=== PATIENT | female | born 1965 | race Caucasian/White ===

== ENCOUNTER 2024-02-27 07:47 | Day surgery (SDC) | payer OTHER, SELFPAY ==
[2023-12-24 10:42] VITALS: BMI 29.0
[2024-02-12 11:05] VITALS: BMI 28.1
--- NOTE | 2024-02-26 11:42 | P.PNAN_ITS ---
Anes - Initial Pre Proc Eval Procedure: Operation Date: 02/27/24 09:45 Proposed Procedures p Screening Colonoscopy - Liam Silva MD Date/Time: 02/26/24 11:42 Surgeon: Liam Silva MD Pre Op Diagnosis: Neoplasm Screening Patient Data Age: 58 Gender: F Height: 1.63 m Weight: 74.5 kg Allergies Allergy/AdvReac Type Severity Reaction Status Date / Time No Known Allergies Allergy Verified 02/27/24 08:06 Home Medications Medication Instructions Recorded Confirmed Type aspirin 81 mg tablet 81 mg PO DAILY 02/12/24 02/27/24 History metformin 500 mg tablet 500 mg PO BID 02/12/24 02/27/24 History rosuvastatin 20 mg tablet 20 mg PO DAILY 02/12/24 02/27/24 History Patient hx anesthesia problems: none Family hx anesthesia problems: none Results Review: All pre-operative results and documents have been reviewed as part of the pre- operative evaluation. [facility] Past Medical History Medical History (Updated 02/26/24 @ 11:43 by Lucas Zamarripa DO) Diabetes type 2, controlled Hyperlipidemia Surgical History Surgical History Cataract extraction status of right eye (~2018) Social History Social History Smoking status: Never smoker Alcohol intake: current Alcohol use details: Social Substance use: never Substance use type: does not use Living arrangements: alone Spiritual care concerns: No Anes - Eval Final PreProcedure Day of Procedure 02/26/24 11:42 Patient weight: overweight Heart: regular rate and rhythm Lungs: clear to auscultation Airway: Mallampati scale class II Neurological: alert and oriented Last oral intake: >/= 8 hours ASA classification: III Emergent: no Anesthetic plan: proceed Anesthesia type and monitoring: general GIVS and standard monitoring Results Review: All pre-operative results and documents have been reviewed as part of the pre- operative evaluation. Informed Consent: The patient's anesthetic plan and its attendant risks and benefits were discussed with the patient/family/POA. Questions were solicited and answers provided to the satisfaction of the patient/family/POA.
[2024-02-27 08:07] VITALS: BP 126/73; PULSE 90; RESP 15; TEMP 36.6; O2SAT 99
[2024-02-27] MEDS: LACTATED RINGERS 1,000 ML 150 ML IV CONT (08:11)
[2024-02-27 08:21] LABS: Glucose Point of Care 146 mg/dl (65-105)
--- NOTE | 2024-02-27 09:37 | PM.HPGS ---
History of Present Illness History of Present Illness Consent: Risks, benefits, and alternatives have been discussed and questions answered. Patient agrees to proceed with procedure. Chief complaint: Neoplasm Screening Narrative: Dayna Etienne is a 58 year old female for screening colonoscopy. Patient's current weight appetite and bowel movements are normal. She denies abdominal pain. Patient has had no bleeding. Family history is noncontributory. Review of Systems Review of Systems: All systems reviewed & are unremarkable except as noted in HPI and below PMFSH Past Medical History Medical History (Updated 02/27/24 @ 09:39 by Liam Silva MD) Diabetes type 2, controlled Hyperlipidemia Surgical History Surgical History Cataract extraction status of right eye (~2019) Social History Social History Smoking status: Never smoker Alcohol intake: current Alcohol use details: Social Substance use: never Substance use type: does not use Living arrangements: alone Spiritual care concerns: No Meds Home Medications and Allergies Home Medications Medication Instructions Recorded Confirmed Type aspirin 81 mg tablet 81 mg PO DAILY 02/12/24 02/27/24 History metformin 500 mg tablet 500 mg PO BID 02/12/24 02/27/24 History rosuvastatin 20 mg tablet 20 mg PO DAILY 02/12/24 02/27/24 History Allergies Allergy/AdvReac Type Severity Reaction Status Date / Time No Known Allergies Allergy Verified 02/27/24 08:06 Vital Signs Vital Signs - 24 hr 02/27/24 08:07 Temperature 98 F Pulse Rate 90 Respiratory Rate 15 Blood Pressure 126/73 Pulse Oximetry 99 Oxygen Delivery Room Air Exam Narrative: Physical exam reveals patient to be alert. Vital signs stable. HEENT exam is unremarkable. Patient is anicteric. Lungs are clear to auscultation and to percussion is without murmur extra sounds. Abdomen bowel sounds are present soft nontender with no organomegaly. Digital external rectal exam normal. Assessment and Plan Assessment and plan (1) Screen for colon cancer: Code(s): Z12.11 - Encounter for screening for malignant neoplasm of colon Status: Acute Assessment and Plan: Patient presents for screening colonoscopy today. She appears to be at average risk for colon polyps. Further recommendations may be given after endoscopy.
[2024-02-27 10:16] VITALS: BP 102/69; PULSE 90; RESP 15; O2SAT 95
[2024-02-27 10:22] VITALS: BP 102/68; PULSE 82; RESP 15; O2SAT 97
[2024-02-27 10:32] VITALS: BP 106/69; PULSE 80; RESP 15; O2SAT 97
--- NOTE | 2024-02-27 11:12 | SUR.PHASEII ---
blood obtained as ordered per dr. turcios
--- NOTE | 2024-02-27 12:51 | WPDANESPN ---
Anes - Prog Note Post-Op Date/Time: 02/27/24 12:51 Cardiovascular status: normal Respiratory status: normal Airway patency: baseline Mental status: baseline Post-Op hydration status: normal Vital Signs: Last Vital Signs Temp 36.6 C 02/27/24 08:07 Pulse 80 02/27/24 10:32 Resp 15 02/27/24 10:32 BP 106/69 02/27/24 10:32 Pulse Ox 97 02/27/24 10:32 O2 Del Method Room Air 02/27/24 10:32 Pain Score (VAS): 0 I/O: Intake & Output 02/26/24 02/27/24 02/27/24 23:59 07:59 15:59 Intake Total 600 Balance 600 02/27/24 08:14 POC Capillary Glucose 146 H Post-procedural complaints: none Patient Feedback: Patient satisfied with anesthetic care. Other Findings: Patient vital signs back to baseline. Patient denies nausea and vomiting. Patient's pain under control. Patient OK for discharge.
== END 2024-02-27 11:12 | disposition home or self-care (01) ==
PROVIDERS: PCP Internal Medicine; Visit Provider Internal Medicine Gastroenterology
PROC: 0DJD8ZZ Inspection of Lower Intestinal Tract, Via Natural or Artificial Opening Endoscopic (ICD-10-PCS; CPT 45378; principal; 2024-02-27 09:45)
DX: Z12.11 Encounter for screening for malignant neoplasm of colon (principal); D37.4 Neoplasm of uncertain behavior of colon; K57.30 Diverticulosis of large intestine without perforation or abscess without bleeding
CPT/HCPCS: 45380; 45381

== ENCOUNTER 2024-02-27 10:37 | Outpatient (CLI) | payer OTHER, SELFPAY ==
[2024-02-27 19:48] LABS: Hematocrit 32.2 % (37.0-47.0); Hemoglobin 10.4 g/dL (12.0-15.0); Mean Corpuscular HGB Conc 32.3 g/dl (32-36); Mean Corpuscular Hemoglobin 31.3 pg (26-34); Mean Platelet Volume 11.2 fl (7.4-10.4); Platelet Count Result 252 k/mm3 (150-375); Red Blood Count 3.32 M/mm3 (4.2-5.4); Red Cell Distribution Width 13.1 % (11.5-14.5); White Blood Count 8.1 K/mm3 (4.5-10.0)
== END 2024-02-27 10:38 | disposition home or self-care (01) ==
LOC: ANHASCLAB 10:38
PROVIDERS: PCP Internal Medicine; Visit Provider Internal Medicine Gastroenterology
DX: K63.89 Other specified diseases of intestine (principal); C18.2 Malignant neoplasm of ascending colon
CPT/HCPCS: 36415; 80053; 82378; 85027; 88305; 88342

== ENCOUNTER 2024-03-04 08:20 | Outpatient (CLI) | payer OTHER, SELFPAY ==
[2024-03-04 09:23] LABS: Alanine Aminotransferase 15 U/L (6-35); Albumin Level 4.2 g/dL (3.5-5.1); Alkaline Phosphatase 89 U/L (38-126); Anion Gap 4 mmol/L (4-12); Aspartate Amino Transferase 25 U/L (14-36); Bilirubin,Total 0.8 mg/dL (0.2-1.3); Blood Urea Nitrogen 14 mg/dL (7-17); Calcium 9.2 mg/dL (8.4-10.2); Carbon Dioxide 31 mmol/L (22-30); Chloride 104 mmol/L (98-107); Estimated Glomerular Filt Rate > 60; Glucose 167 mg/dL (65-110); Potassium 4.1 mmol/L (3.4-5.0); Sodium 139 mmol/L (137-145)
[2024-03-04 09:55] LABS: Carcinoembryonic Antigen 1.7 ng/mL (0.0-3.0)
== END 2024-03-04 08:21 | disposition home or self-care (01) ==
LOC: ANHLAB 08:22
PROVIDERS: PCP Internal Medicine; Visit Provider Internal Medicine Gastroenterology
DX: K63.89 Other specified diseases of intestine (principal)
CPT/HCPCS: 36415; 80053; 82378

== ENCOUNTER 2024-03-17 13:30 | Emergency (ER) | payer OTHER, SELFPAY ==
[2024-03-17 13:51] VITALS: BP 136/63; PULSE 91; RESP 16; TEMP 37; O2SAT 98
--- NOTE | 2024-03-17 14:11 | ED.URI ---
HPI - URI/Sore Throat General Chief Complaint: Upper Respiratory Infection Stated Complaint: Chest Congestion Time Seen by Provider: 03/17/24 13:52 Source: patient Mode of arrival: ambulatory Limitations: no limitations History of Present Illness HPI Narrative: Dayna is a 58-year-old female patient presenting to the clinic today with complaints of chest congestion that just started this morning. She denies any shortness of breath or chest pain. States she has a nonproductive cough. Denies any fevers, chills, or body aches. Does have slight nasal congestion. No sore throat MD elicited complaint: cough, nasal congestion and other (Chest congestion) Related Data Home Medications ?Medication ?Instructions ?Recorded ?Confirmed ?Last Taken ?Type aspirin 81 mg tablet 81 mg PO DAILY 02/12/24 03/12/24 Unknown History metformin 500 mg tablet 500 mg PO BID 02/12/24 03/12/24 Unknown History rosuvastatin 20 mg tablet 20 mg PO DAILY 02/12/24 03/12/24 Unknown History Allergies Allergy/AdvReac Type Severity Reaction Status Date / Time No Known Allergies Allergy Verified 03/12/24 10:05 Review of Systems Review of Systems: Pertinent positives per HPI. Patient denies any fever, chills, rash, headache, visual changes, dizziness, shortness of breath, chest pain, palpitations, nausea, vomiting, diarrhea, constipation, abdominal pain, or any urinary issues. [facility] Past Medical History Medical History Screen for colon cancer Screen for colon cancer Cancer Diabetes type 2, controlled Hyperlipidemia Surgical History Surgical History History of tubal ligation Hx laparoscopic cholecystectomy 2007 Cataract extraction status of right eye (~2019) Family History Family History Mother Thyroid cancer Heart disease Sibling Thyroid cancer Thyroid disorder Grandparent Thyroid cancer Social History Social History Smoking status: Never smoker Alcohol intake: current Alcohol use details: Social Substance use: never Substance use type: does not use Current Housing: Decline to Answer Concerned About Future Housing: Decline to Answer Difficulty Paying Gas/Electric Bills: Decline to Answer Difficulty Paying for Meds: Decline to Answer Currently Unemployed: Decline to Answer Education: Decline to Answer Difficulty w/ Childcare or Family Care: Decline to Answer Living arrangements: alone Spiritual care concerns: No Comments At the time of my signature, I reviewed and agree with the nursing past medical, surgical, social, and family history. There is no relevant family history pertinent to the patient complaint. Exam Narrative: General: Well-developed, well nourished, in no apparent distress Head: Normocephalic, atraumatic Eyes: Pupils equally round and reactive to light bilaterally, EOM intact, sclera and conjunctive clear, no discharge, lids normal Ears: TMs intact and clear, ear canals clear, no drainage, grossly hearing normal. Nose: Nares patent, clear nasal discharge, no inflammation, no sinus tenderness. Mouth: Oral pharynx without lesions or masses, good dentition, MMM. Postnasal drip Neck: Supple, trachea midline, no enlargement of anterior or posterior cervical nodes, no thyroid masses or goiter palpable. Cardio: Regular rate and rhythm, s1 and s2 normal, no murmur appreciated. Resp: Clear to auscultation bilaterally, no rhonchi, rales, wheezing or rubs Course Course Emergency Course: Portions of this record may have been created with voice recognition software. Level of Care: Express Care Visit Vital Signs Vital signs: Vital Signs Temperature 37.0 C 03/17/24 13:51 Pulse Rate 91 03/17/24 13:51 Respiratory Rate 16 03/17/24 13:51 Blood Pressure 136/63 03/17/24 13:51 Pulse Oximetry 98 03/17/24 13:51 Oxygen Delivery Room Air 03/17/24 13:51 Temperature 37.0 C 03/17/24 13:51 Pulse Rate 91 03/17/24 13:51 Respiratory Rate 16 03/17/24 13:51 Blood Pressure 136/63 03/17/24 13:51 Pulse Oximetry 98 03/17/24 13:51 Oxygen Delivery Room Air 03/17/24 13:51 Vital signs reviewed MDM - URI/Sore Throat MDM Narrative Medical decision making narrative: At the time of visit patient is resting comfortably on the exam table. Patient appears to be nontoxic. Plan: Lung sounds are clear there is no sign of bacterial infection. X2 early to test for COVID or flu as patient has only had symptoms for a couple hours. I suspect patient has URI. Will send in prescription for albuterol inhaler. Supportive measures were discussed with the patient and they voiced understanding discharge instructions and agrees to treatment plan. Return precautions reviewed Differential Diagnosis Differential diagnosis: Likely upper respiratory infection, otitis media, sinusitis, viral infection, bronchitis, influenza, pharyngitis and other (COVID) Discharge Plan Discharge Clinical Impression: Upper respiratory infection Qualifiers: URI type: unspecified URI Qualified Code(s): J06.9 - Acute upper respiratory infection, unspecified Patient Disposition: Home, Self-Care Condition: Stable Instructions: Antibiotic Form, Cold Symptoms (ED) Additional Instructions: Take prescription medications only as prescribed-albuterol inhaler May take Coricidin HBP for cold and flu symptoms Increase fluids and stay well hydrated Tylenol/motrin for pain/fever Flonase and OTC antihistamines as directed Vicks vapor rub to open sinuses Sinus rinses for congestion Cepacol spray, cough drops, throat lozenges, warm tea with honey/lemon, gargle salt water to soothe throat BRAT diet for diarrhea Clear liquids x 24 hours then advance as tolerated for nausea/vomiting Go to the ED if you develop a worsening in your condition- high fever not controlled by Tylenol or Motrin, dehydration, weakness, lethargy, shortness of breath, or chest pain. Follow up with your PCP in 3-5 days if symptoms persist. Patient Language: British Prescriptions: New albuterol sulfate 90 mcg/actuation HFA aerosol inhaler 2 puff inhalation Q4-6H PRN (Reason: shortness of breath or wheezing) 30 Days Qty: 8.5 0RF No Action ciprofloxacin HCl 500 mg tablet 500 mg PO .COMPLEX Qty: 1 0RF Rx Instructions: 500 mg orally at 2:00pm the day before surgery; metronidazole 500 mg tablet 500 mg PO .COMPLEX Qty: 3 0RF Rx Instructions: 500 mg orally at 1:00pm, 2:00pm, and 11:00pm the day before surgery; Adult Low Dose Aspirin 81 mg Tablet 81 mg PO DAILY metformin 500 mg Tablet 500 mg PO BID rosuvastatin 20 mg Tablet 20 mg PO DAILY Follow-up/Referrals: PHYSICIAN,BRICK GRADER [Primary Care Provider] - Time of Disposition: 14:12 Quality NIHSS Nursing Documentation ED NIHSS nursing documentation: reviewed/agree
== END 2024-03-17 14:19 | disposition home or self-care (01) ==
PROVIDERS: Emergency Provider Nurse Practitioner Family
DX: J06.9 Acute upper respiratory infection, unspecified (principal); Z79.82 Long term (current) use of aspirin; E11.9 Type 2 diabetes mellitus without complications; E78.5 Hyperlipidemia, unspecified
CPT/HCPCS: 99213; G0463

== ENCOUNTER 2024-04-07 15:31 | Outpatient (CLI) | payer OTHER, SELFPAY ==
--- NOTE | ~2024-04-07 | CT_ITS ---
EXAMINATION: CT abdomen pelvis w con DATE: 04/07/2024 16:21 INDICATION: Malignant neoplasm of the ascending colon TECHNIQUE: Computed tomography (CT) of the abdomen and pelvis was performed with 100 mL Omnipaque-350 intravenous contrast. Automated exposure control and iterative reconstruction technique were employe d. The dose-length product was 461.97 mGy-cm. COMPARISON: None FINDINGS: Mild bibasilar atelectasis at the lingula and right middle and lower lobes. Heart size is normal. No pericardial or pleural effusion. Focal hepatic steatosis at the ligamentum teres. Cholecystectomy cli ps the gallbladder fossa. Spleen, pancreas and bilateral adrenal glands are normal. Bilateral subcent imeter low-attenuation renal cysts the largest on the right measuring 8 mm. There is gas and debris w ithin the duodenal diverticulum projecting into the head of the pancreas. There is moderate colonic d iverticulosis with a sigmoid predominance without adjacent inflammatory change to suggest diverticuli tis. There is mild wall thickening along approximately 2 cm long segment of ascending colon along the caudal tip of the liver which appears to represent most likely site of the reported biopsy-proven ad enocarcinoma. No bowel obstruction. Small fat-containing left inguinal hernia. Bladder, uterus and bi lateral adnexa are unremarkable. No free intraperitoneal gas or fluid. No pathologically enlarged abd ominal or pelvic lymphadenopathy. Mild lumbar and mild to moderate lower thoracic spondylosis. IMPRESSION: 1. 2 cm segment with mild wall thickening at the ascending colon likely representing the site of the reported biopsy-proven: Adenocarcinoma. No evident metastatic disease. 2. Moderate sigmoid diverticulosis. 3. Small fat-containing left inguinal hernia. Reviewed, dictated and finalized at location B. [employer] DEVELOPER IMPRESSION: 1. 2 cm segment with mild wall thickening at the ascending colon likely represe nting the site of the reported biopsy-proven: Adenocarcinoma. No evident metast atic disease. 2. Moderate sigmoid diverticulosis. 3. Small fat-containing left inguinal hernia.
[2024-04-07 16:11] LABS: Estimated Glomerular Filt Rate > 60
== END 2024-04-07 15:32 | disposition home or self-care (01) ==
PROVIDERS: PCP Internal Medicine; Visit Provider Surgery
DX: C18.2 Malignant neoplasm of ascending colon (principal)
CPT/HCPCS: 74177; Q9967

== ENCOUNTER 2024-04-08 11:17 | Outpatient (CLI) | payer OTHER, SELFPAY ==
--- NOTE | ~2024-04-08 | XR_ITS ---
EXAMINATION: XR chest 2V DATE: 04/08/2024 12:45 INDICATION: Malignant neoplasm of colon, unspecified. TECHNIQUE: Frontal and lateral views of the chest were obtained. COMPARISON: CT abdomen pelvis 04/07/2024 FINDINGS: There is no pneumonia, pleural effusion, or pneumothorax. The heart size is normal. There a re surgical clips from cholecystectomy. IMPRESSION: 1. No acute cardiopulmonary disease. Reviewed, dictated and finalized at location A. J2EE LEAD
--- NOTE | 2024-04-08 11:51 | ECG_ITS ---
Test Date: 2024-04-08 12:10:05 Measurements Intervals Rhodes Rate: 82 P: 24 MO: 126 QRS: 43 QRSD: 79 T: 34 QT: 368 QTc: 432 Interpretive Statements SINUS RHYTHM LOW QRS VOLTAGE IN PRECORDIAL LEADS [QRS DEFLECTION < 1.0 mV IN CHEST LEADS] No previous ECG available for comparison Electronically Signed On 04-08-2024 14:35:35 [employer]END[employer] HELPER by Ivet Herbert M.D.
[2024-04-08 12:55] LABS: Basophils Percent Auto 0.5 % (0.2-1.2); Eosinophils Absolute Auto 0.1 K/mm3 (0-0.3); Eosinophils Percent Auto 1.6 % (0-4.4); Hematocrit 34.6 % (37.0-47.0); Immature Granulocyte Absolute 0.03 K/mm3 (0.00-0.031); Immature Granulocyte Percent A 0.4 % (0-0.5); Lymphocytes Absolute Auto 2.34 K/mm3 (0.9-3.2); Lymphocytes Percent Auto 27.6 % (18.3-44.2); Mean Corpuscular HGB Conc 31.8 g/dl (32-36); Mean Corpuscular Hemoglobin 30.1 pg (26-34); Mean Corpuscular Volume 94.8 fl (80-100); Mean Platelet Volume 10.5 fl (7.4-10.4); Monocytes Absolute Auto 0.9 K/mm3 (0.1-0.6); Monocytes Percent Auto 10.6 % (2.6-8.5); Neutrophils Percent Auto 59.3 % (45.5-73.1); Platelet Count Result 315 k/mm3 (150-375); Red Blood Count 3.65 M/mm3 (4.2-5.4); Red Cell Distribution Width 13.9 % (11.5-14.5); White Blood Count 8.5 K/mm3 (4.5-10.0)
[2024-04-08 13:07] LABS: Alanine Aminotransferase 14 U/L (6-35); Albumin Level 4.5 g/dL (3.5-5.1); Alkaline Phosphatase 74 U/L (38-126); Anion Gap 11 mmol/L (4-12); Aspartate Amino Transferase 25 U/L (14-36); Bilirubin,Total 1.1 mg/dL (0.2-1.3); Blood Urea Nitrogen 12 mg/dL (7-17); Calcium 9.4 mg/dL (8.4-10.2); Carbon Dioxide 29 mmol/L (22-30); Chloride 100 mmol/L (98-107); Estimated Glomerular Filt Rate > 60; Glucose 140 mg/dL (65-110); Potassium 4.2 mmol/L (3.4-5.0); Sodium 140 mmol/L (137-145)
== END 2024-04-08 11:18 | disposition home or self-care (01) ==
PROVIDERS: PCP Internal Medicine; Visit Provider Surgery
DX: C18.9 Malignant neoplasm of colon, unspecified (principal); K63.89 Other specified diseases of intestine
CPT/HCPCS: 36415; 71046; 80053; 85025; 86850; 86900; 86901; 93005

== ENCOUNTER 2024-04-15 13:36 | Inpatient (IN) | payer OTHER, SELFPAY ==
--- NOTE | 2024-04-08 10:51 | PC.NURSE ---
Report to the Outpatient Waiting Room, entrance under the green pavilion located off [facility], at time _0830_ on date _[id number]_. Planned Procedure Time: _1030_.? Time changes happen often and if your time is changed the preop area will call you the afternoon before. - You and your visitor will be asked to self-screen and do not enter if you have any COVID symptoms. Please call surgeon if you need to reschedule. - A mask is optional within the hospital at this time. Patients may have clear liquids (water, carbonated beverages, clear teas, apple juice) until 3 hours prior to surgery with a maximum of 20 ounces. - No food from midnight until time of surgery and no smoking. This includes no chewing gum, candy or mints. Take only the following medications with a SIP of water on the morning of surgery: ___None____ DO NOT STOP ANY OF YOUR OTHER PRESCRIPTION MEDICATIONS PRIOR TO SURGERY EXCEPT THE FOLLOWING Medications to discontinue per physician ____None____ Date to take last dose Follow office instructions about bowel prep and ensure bundle. Please no make-up, nail kiswahili, hairspray, perfume, deodorant, or body powder the day of surgery.? No jewelry (including any body piercings) or valuables the day of surgery, leave them at home.? Please take a shower or bath the night before, or the morning of, surgery with an antibacterial soap.? Wear comfortable, loose fitting clothing.? - Jewelry must be removed prior to entering the operating room.? Rings and piercings that are not removed may be cut off. - The hospital will not accept responsibility for valuables.? - Please leave all valuables, including medications, at home the day of surgery. If you are going home after surgery, a licensed regional driver must drive you home.? - NO public transportation without another adult if you receive anesthesia. - We recommend that an adult stay with you for 24 hours following discharge. - We also recommend that you do not drive, make important decision, drink alcoholic beverages, or take any drugs that were not prescribed by your health care provider for at least 24 hours after your discharge time. Follow any additional instructions given to you from your surgeon. Telephone instructions given to __Sherry__and asked if any additional questions and then verbalized understanding. Patient advised to call surgeon office or pre surgery nurse liaison [phone] if any additional questions.
[2024-04-08 11:26] VITALS: BP 116/67; PULSE 89; RESP 16; TEMP 36.4; O2SAT 98; BMI 27.2
--- NOTE | 2024-04-14 14:32 | P.HP_ITS ---
H&P: HPI History of Present Illness Date/Time: 04/14/24 14:32 Chief Complaint: Colon cancer Narrative: Patient is a 58-year-old woman who on February 27, 2020 for underwent a routine screening colonoscopy. She was found to have mass in the ascending colon. Biopsies of this did show adenocarcinoma. She has had a CT scan of the abdomen with IV contrast which was negative for metastatic disease. Her CEA level was within normal limits. She was seen in the office and laparoscopic right colectomy was discussed. She has had home bowel preparation and is taken to the operating room today for hand access laparoscopic right colectomy. Review of Systems Review of Systems: All systems reviewed & are unremarkable except as noted in HPI and below (HPI) PMFSH Past Medical History Medical History Screen for colon cancer Screen for colon cancer Cancer Diabetes type 2, controlled Hyperlipidemia Surgical History Surgical History History of tubal ligation Hx laparoscopic cholecystectomy 2006 Cataract extraction status of right eye (~2019) Family History Family History Mother Thyroid cancer Heart disease Sibling Thyroid cancer Thyroid disorder Grandparent Thyroid cancer Social History Social History Smoking status: Never smoker Alcohol intake: current Alcohol use details: Social Substance use: never Substance use type: does not use Current Housing: Decline to Answer Concerned About Future Housing: Decline to Answer Difficulty Paying Gas/Electric Bills: Decline to Answer Difficulty Paying for Meds: Decline to Answer Currently Unemployed: Decline to Answer Education: Decline to Answer Difficulty w/ Childcare or Family Care: Decline to Answer Living arrangements: alone Spiritual care concerns: No Meds Home Medications and Allergies Home Medications ?Medication ?Instructions ?Recorded ?Confirmed ?Type aspirin 81 mg tablet 81 mg PO DAILY 02/12/24 04/08/24 History metformin 500 mg tablet 1,000 mg PO BID 02/12/24 04/08/24 History rosuvastatin 20 mg tablet 20 mg PO DAILY 02/12/24 04/08/24 History ciprofloxacin HCl 500 mg tablet 500 mg PO .COMPLEX #1 tablet 03/12/24 04/08/24 Rx metronidazole 500 mg tablet 500 mg PO .COMPLEX #3 tabs 03/12/24 04/08/24 Rx Allergies Allergy/AdvReac Type Severity Reaction Status Date / Time No Known Allergies Allergy Verified 04/08/24 11:28 Exam Const: General: comfortable, no acute distress, alert and awake HENMT: Head: normocephalic and atraumatic Mouth: Yes Normal oral and palatal mucosa present Eyes: Conjunctivae: conjunctivae normal Pupils: Equal, round and reactive pupils present EOM: EOMs intact bilaterally Neck: Neck: normal visual inspection, no lymphadenopathy and nontender Resp: Effort & Inspection: normal respiratory effort Auscultation: clear to auscultation bilaterally Cardio: Rate: regular rate Rhythm: regular rhythm Heart sounds: no gallops, no murmurs and no rubs GI: Inspection: non-distended, scaphoid, scar (Lower abdominal midline scar, supraumbilical transverse scar) and no visible herniation GI Palp: Yes Soft to palpation, No Tenderness to palpation present (GI), No Hepatomegaly present, No Splenomegaly present, No Hernia present and No Palpable mass present Auscultation: normal bowel sounds Skin: Lesions: no lesions Rashes: no rashes Neuro: General: no focal motor deficits and CN's II-XI intact bilaterally Cranial nerves: Yes Equal, round and reactive pupils present, Yes Bilaterally intact EOM present, Yes facial symmetry and Yes Midline tongue present Speech: normal speech Motor exam (neuro): 5/5 motor strength present throughout and Motor abnormalities not present Extrem: General: no clubbing, cyanosis or edema and edema Psych: Affect: normal affect Thought process: Normal thought process present Insight: Good insight present (Psych) Assessment and Plan Assessment and plan (1) Cancer of ascending colon: Code(s): C18.2 - Malignant neoplasm of ascending colon Status: Chronic Assessment and Plan: Plan to proceed with hand access laparoscopic right colectomy. I have explained the procedure, risks, benefits, alternatives, and usual recovery to the patient. I have discussed the usual time in the hospital. Possibility of anastomotic leakage and its implications were discussed. All questions were answered. She understands and wishes to go ahead. (2) Diabetes type 2, controlled: Qualifiers: Diabetes mellitus fci insulin use: without watcher automat long goods use Diabetes mellitus complication status: without complication Qualified Code(s): E11.9 - Type 2 diabetes mellitus without complications Code(s): E11.9 - Type 2 diabetes mellitus without complications Status: Chronic Assessment and Plan: Continue metformin and follow blood sugars
[2024-04-15] VITALS (14 sets, daily range): BP systolic 81–114; BP diastolic 49–74; PULSE 92–105; RESP 12–16; TEMP 36–36.6; O2SAT 93–99
--- NOTE | 2024-04-15 07:40 | WPDHPUPDATE1 ---
History and Physical Update Update Date/Time: 04/15/24 07:40 History and Physical has been reviewed, including an updated exam of the patient. There are NO changes in the patient's condition. Risks, benefits, and alternatives have been discussed and questions answered. Patient agrees to proceed with procedure.
[2024-04-15 08:05] LABS: Glucose Point of Care 152 mg/dl (65-105)
[2024-04-15] MEDS: LACTATED RINGERS 1,000 ML 30 ML IV CONT ×3 (08:15→12:44)
[2024-04-15] MEDS: ALVIMOPAN 12 MG CAPSULE PO (08:15)
[2024-04-15] MEDS: ACETAMINOPHEN 500 MG TABLET 1000 MG PO (08:15)
[2024-04-15] MEDS: KETOROLAC 15 MG/ML VIAL (*BKC) IV PUSH (08:15)
--- NOTE | 2024-04-15 09:06 | WPDANESEPPF ---
Anes - Initial Pre Proc Eval Procedure: Operation Date: 04/15/24 09:30 Proposed Procedures p Hand Assisted Laparoscopic Right Colectomy - Francisco Landry MD Date/Time: 04/15/24 09:06 Surgeon: Francisco Landry MD Pre Op Diagnosis: ascending colon cancer Patient Data Age: 58 Gender: F Height: 1.63 m Weight: 69.1 kg Last Vital Signs Temp 96.8 F L 04/15/24 08:15 Pulse 99 04/15/24 08:15 Resp 14 04/15/24 08:15 BP 112/71 04/15/24 08:15 Pulse Ox 99 04/15/24 08:15 O2 Del Method Room Air 04/15/24 08:15 Allergies Allergy/AdvReac Type Severity Reaction Status Date / Time No Known Allergies Allergy Verified 04/15/24 08:30 Home Medications ?Medication ?Instructions ?Recorded ?Confirmed ?Type aspirin 81 mg tablet 81 mg PO DAILY 02/12/24 04/15/24 History metformin 500 mg tablet 1,000 mg PO BID 02/12/24 04/08/24 History rosuvastatin 20 mg tablet 20 mg PO DAILY 02/12/24 04/08/24 History ciprofloxacin HCl 500 mg tablet 500 mg PO .COMPLEX #1 tablet 03/12/24 04/08/24 Rx metronidazole 500 mg tablet 500 mg PO .COMPLEX #3 tabs 03/12/24 04/08/24 Rx Laboratory Tests 04/15/24 08:02 POC Capillary Glucose 152 H mg/dl (65-105) Patient hx anesthesia problems: none Family hx anesthesia problems: none Results Review: All pre-operative results and documents have been reviewed as part of the pre-operative evaluation. [facility] Past Medical History Medical History Screen for colon cancer Screen for colon cancer Cancer Diabetes type 2, controlled Hyperlipidemia Surgical History Surgical History History of tubal ligation Hx laparoscopic cholecystectomy 2006 Cataract extraction status of right eye (~2019) Family History Family History Mother Thyroid cancer Heart disease Sibling Thyroid cancer Thyroid disorder Grandparent Thyroid cancer Social History Social History Smoking status: Never smoker Alcohol intake: current Alcohol use details: Social Substance use: never Substance use type: does not use Current Housing: Decline to Answer Concerned About Future Housing: Decline to Answer Difficulty Paying Gas/Electric Bills: Decline to Answer Difficulty Paying for Meds: Decline to Answer Currently Unemployed: Decline to Answer Education: Decline to Answer Difficulty w/ Childcare or Family Care: Decline to Answer Living arrangements: alone Spiritual care concerns: No Anes - Eval Final PreProcedure Day of Procedure 04/15/24 09:06 Patient weight: overweight Heart: regular rate and rhythm Lungs: clear to auscultation Airway: Mallampati scale and special considerations (Upper perm bridges. ) Neurological: alert and oriented Last oral intake: >/= 8 hours ASA classification: III Emergent: no Anesthetic plan: proceed Anesthesia type and monitoring: general ETT and standard monitoring Results Review: All pre-operative results and documents have been reviewed as part of the pre-operative evaluation. Hyperlipidemia, DM fsbs 152, colon ca. EKG w NSR Informed Consent: The patient's anesthetic plan and its attendant risks and benefits were discussed with the patient/family/POA. Questions were solicited and answers provided to the satisfaction of the patient/family/POA.
[2024-04-15] MEDS: ceFAZolin 2 GM/D5W 50 ML 2 GM/50 ML BAG IVPB (09:24)
[2024-04-15] MEDS: metroNIDAZOLE 500 MG/ISO 100ML 500 MG/100 ML BAG 100 MG IVPB (09:27)
[2024-04-15] MEDS: BUPIVACAINE/EPINEPHRINE 0.5% 50 ML VIAL 20 ML INFILTRATE (09:39)
--- NOTE | 2024-04-15 12:10 | P.OP_ITS ---
Procedure Note - Detailed Date of Procedure 04/15/24 Pre-op Diagnosis ascending colon cancer Post-op Diagnosis Same Procedure Performed Hand access laparoscopic right colectomy with hand-sewn ileotransverse anastomosis Surgeon Francisco Landry MD Supervisor [employer] Ellen Stock [facility] Anesthesia General and Local Indications Patient had colonoscopy and was found to have a suspicious lesion in the mid ascending colon. The lesion was tattooed. Biopsies did show adenocarcinoma. She had a CT scan with IV contrast preoperatively which was negative for metastatic disease. She had a CEA test which was normal. She is taken to surgery at this time for hand access laparoscopic right colectomy Findings Tumor was palpable in the mid ascending colon. Tattoo was easily seen. There was no evidence of metastatic disease. Description of Procedure Patient was taken to surgery and induced into general anesthesia. The abdomen is prepped and draped. The hand access incision was planned in the midline above the umbilicus. Local anesthetic was infiltrated in the area of the anticipated incision. Local was infiltrated in the subcutaneous as well. Incision was made and deepened slowly through the subcutaneous. We dissected through the midline fascia and entered the peritoneal cavity. I checked for any anterior abdominal wall adhesions and could not find any. The Mike wound guard was then placed. The GelPort was attached. With the hand in the abdomen, I then placed a right lower abdominal 5 mm port. Local was infiltrated prior to this port being placed. With this port in position, we insufflated the abdomen. The camera was placed in the right lower quadrant. We then placed another 5 mm port in the left lower quadrant under direct visualization and again using local anesthetic. Abdominal exploration was carried out. There were some omental adhesions to the area where the cholecystectomy had been performed. There was no evidence of suspicious lesions in the area of the liver. The tattoo was easily seen and there was no attachment of the palpable tumor to any surrounding structures. Patient was placed in some Trendelenburg and the distal ileum was retracted anteriorly. At the base of the ileum, using the LigaSure, dissection was started by dividing these peritoneal attachments at the base of the mesentery. I also divided through the distal ileal mesentery in the area where we would plan our proximal line of resection. I then went back to the medial retroperitoneal dissection and continued from caudad to cephalad until I reached the transverse colon mesentery. I then went back to the lateral peritoneal attachments of the ascending colon and divided these. The appendix was very diminutive and was adhesed in a cephalad direction to the side of the cecum. I then placed the patient in a right side elevated position and dissected some the omental adhesions to the proximal transverse colon off of the liver in the area of the gallbladder fossa. I went back to the distal ileum and divided the mesentery to the distal ileum up to the ileocolic artery. This artery was dissected circumferentially. It was then thoroughly cauterized with the Lig aSure and divided. There was no bleeding. I then continued dividing the mesentery of the ascending colon in a cephalad direction using the LigaSure. Between this dissection and the retroperitoneal dissection, I was able to see the duodenal sweep. I finished dividing lateral peritoneal attachments and omental attachments of the hepatic flexure to the liver. I then exposed the transverse colon mesentery and divided this from the hepatic flexure towards the middle of the transverse colon. This was essentially bloodless. I recheck to all the areas of dissection, it appeared we had plenty of mobilization that the ascending colon and attached ileum as well as proximal transverse colon could easily be eviscerated. We stopped insufflation and I removed the GelPort. The ascending colon with the tumor and tattoo were easily brought out of the hand access port. The distal ileum as well as at least half of the transverse colon were eviscerated as well. I checked that there was no mesenteric bleeding, particularly in the area of the ileum. All looked good. I also checked that the mesentery to the distal ileum was not twisted or spiraled. I then divided the remaining mesentery to the distal ileum with the LigaSure. I divided the distal ileum with a TLC 75 stapler. Additionally, I used the LigaSure to mobilize a bit more of the transverse colon, taking down the hepatocolic att achments. I then divided the mesentery of the transverse colon up to the transverse colon where the distal line of resection was anticipated. I used cautery to clear any fatty tissue from this area of transverse colon. I again used the TLC 75 stapler and divided the transverse colon at this point. The ascending colon was then passed off as a specimen. I again checked for any evidence of bleeding from the mesentery of either the ileum or transverse colon. There was none. I then oriented the distal ileum and proximal transverse colon in a [id number] but functional end-to-end position. I hand-sewn 2 layer anastomosis was then performed. The posterior outer layer of her opted 4-0 silk Lembert sutures was placed 1st. I opened both the distal ileum and the proximal transverse colon in juxtaposition to 1 another. I then used a running bidirectional 4-[address] the posterior inner layer. This was a running locking suture. At each corner as well as for the anterior inner layer, the chromic suture was placed in a Herminio running inverting suture. The 2 ends were tied together in the middle. I then finished the anastomosis with an anterior outer layer of interrupted 4-0 silk Lembert suture. Some interrupted 4-0 silk suture were used to close the mesenteric defect associated with the anastomosis. I then dropped the anastomosis and the accompanying bowel and omentum back in the abdomen. I replaced the GelPort and we reinsufflated. With the hand back in the abdomen, I reviewed the anastomosis. All looked good with no evidence of tension or poorly vascularized bowel. There was no evidence of twisting of the ileal mesentery or bowel. I checked the right colic gutter and other areas of dissection. All looked good with no sign of any bleeding or o ther issues. We then evacuated CO2 and removed the GelPort and Mike. The surgical team changed gown and gloves and a clean closure tray was then used. The hand access port was closed with bidirectional running 0 PDS suture. The subcutaneous was closed with interrupted 3-0 Vicryl suture. Some 4-0 Vicryl subcuticular skin sutures were then placed. The hand access incision as well as the 2 laparoscopic ports were closed at the skin level with running 4-0 Monocryl skin suture. All the wounds were dressed with Exofin surgical adhesive. The patient was then awakened and taken to recovery in good condition. Sponge and needle counts were correct x2. Estimated Blood Loss -20 Drains No Packing No Pathology Yes (Ascending colon) Complications None Condition Stable Disposition PACU [facility] Billing Surgery - Charge Forward: Surgery Billing (Hand access right colectomy with hand-sewn ileotransverse anastomosis)
[2024-04-15] MEDS: fentaNYL CITRATE INJ (*CRX) 100 MCG/2 ML VIAL 25 MCG IV PUSH (13:10)
[2024-04-15 13:21] LABS: Glucose Point of Care 180 mg/dl (65-105)
--- NOTE | 2024-04-15 14:00 | ADMGEN ---
This patient, Dayna Etienne, was admitted to [facility] Surg Room 306-01. Patient/family oriented to hospital policies and general routines including ID bracelet, bed and alarms, visiting hours, pain management, procedures, bathroom and other care routines, personal items, smoking policy, room service/diet, and visiting hours. Information on how to activate the Rapid Response Team has been discussed. Patient/Family are encouraged to report perceived risks to care and to ask questions if they do not understand what they are told or what they should do.
[2024-04-15] MEDS: LACTATED RINGERS 1,000 ML 100 ML IV CONT (14:04)
[2024-04-15] MEDS: HYDROcodone/acetaminophen (*CRX) 5-325 MG TABLET 1 TAB PO ×2 (15:44→20:35)
[2024-04-15 16:25] LABS: Glucose Point of Care 210 mg/dl (65-105)
[2024-04-15 17:26] LABS: Glucose Point of Care 237 mg/dl (65-105)
[2024-04-15] MEDS: metFORMIN HCL 500 MG TABLET 1000 MG PO (17:26)
[2024-04-15 20:20] LABS: Glucose Point of Care 215 mg/dl (65-105)
[2024-04-15] MEDS: INSULIN ASPART (*BKC) 100 UNITS/ML SUB-Q (20:36)
[2024-04-16] MEDS: HYDROcodone/acetaminophen (*CRX) 5-325 MG TABLET 1 TAB PO (01:58)
[2024-04-16 03:21] VITALS: BP 102/54; PULSE 90; RESP 12; TEMP 36.7; O2SAT 96
[2024-04-16 06:56] LABS: Hematocrit 28.3 % (37.0-47.0); Hemoglobin 8.9 g/dL (12.0-15.0); Mean Corpuscular HGB Conc 31.4 g/dl (32-36); Mean Corpuscular Hemoglobin 29.8 pg (26-34); Mean Corpuscular Volume 94.6 fl (80-100); Mean Platelet Volume 9.7 fl (7.4-10.4); Platelet Count Result 230 k/mm3 (150-375); Red Blood Count 2.99 M/mm3 (4.2-5.4); Red Cell Distribution Width 14.1 % (11.5-14.5); White Blood Count 14.8 K/mm3 (4.5-10.0)
[2024-04-16 07:07] LABS: Anion Gap 5 mmol/L (4-12); Blood Urea Nitrogen 7 mg/dL (7-17); Calcium 8.7 mg/dL (8.4-10.2); Carbon Dioxide 31 mmol/L (22-30); Chloride 103 mmol/L (98-107); Estimated CRCL calculation 83 ml/min; Estimated Glomerular Filt Rate > 60; Glucose 123 mg/dL (65-110); Potassium 4.3 mmol/L (3.4-5.0); Sodium 139 mmol/L (137-145)
[2024-04-16 08:00] VITALS: BP 109/58; PULSE 94; RESP 16; TEMP 36.6; O2SAT 93
[2024-04-16] MEDS: oxyCODONE/ACETAMINOPHEN (*CRX) 10-325 MG TABLET 1 TAB PO ×3 (08:03→21:48)
[2024-04-16] MEDS: ROSUVASTATIN 20 MG TABLET PO (08:39)
[2024-04-16] MEDS: ASPIRIN 81 MG ENTERIC TABLET PO (08:39)
[2024-04-16] MEDS: metFORMIN HCL 500 MG TABLET 1000 MG PO ×2 (08:41→17:18)
[2024-04-16 08:46] LABS: Glucose Point of Care 141 mg/dl (65-105)
--- NOTE | 2024-04-16 11:33 | PM.PNGS ---
Progress Note: A&P Assessment and Plan (1) Cancer of ascending colon: Code(s): C18.2 - Malignant neoplasm of ascending colon Status: Chronic Assessment and Plan: Doing well postop day 1. Will advance to low-fiber diet. Has been up walking in the room. Continue to do this. Recheck labs and exam again tomorrow. Possibly home tomorrow. (2) Diabetes type 2, controlled: Qualifiers: Diabetes mellitus instrument maker and repairer insulin use: without correction use Diabetes mellitus complication status: without complication Qualified Code(s): E11.9 - Type 2 diabetes mellitus without complications Code(s): E11.9 - Type 2 diabetes mellitus without complications Status: Chronic Assessment and Plan: Hospitalist following Subjective Subjective Date/Time Seen: 04/16/24 11:33 Post Op day: 1 Patient reports: still having pain (The pain is tolerable with oral analgesics), tolerating liquids well, voiding w/o difficulty, flatus and afebrile Exam Const: General: comfortable and no acute distress Orientation/consciousness: patient oriented x3 GI: Inspection: no abdominal wall ecchymosis, non-distended, incision (Dry and healing well) and no visible herniation GI Palp: Yes Soft to palpation, Yes Tenderness to palpation present (GI) (Appropriate mild tenderness mostly at incision), No Guarding due to palpation present (GI), No Hernia present, No Palpable mass present and No Rebound tenderness present Neuro: General: patient oriented x3 and no focal motor deficits Extrem: General: no calf tenderness and no edema Psych: Affect: normal affect Insight: Good insight present (Psych) Judgement: Good judgement present (Psych) Objective Data Vital Signs Vital Signs: Vital Signs - 24 hr 04/15/24 12:12 04/15/24 12:30 04/15/24 12:45 Temperature 36.6 C Pulse Rate 98 93 95 Respiratory Rate 16 12 14 Blood Pressure 91/49 L 81/50 L 89/59 L Pulse Oximetry 96 95 95 Oxygen Delivery Simple Face Mask Simple Face Mask Simple Face Mask Oxygen Flow Rate 8 8 8 04/15/24 13:00 04/15/24 13:15 04/15/24 13:30 Temperature Pulse Rate 99 99 96 Respiratory Rate 14 14 12 Blood Pressure 112/74 110/67 105/71 Pulse Oximetry 96 97 97 Oxygen Delivery Nasal Cannula Room Air Nasal Cannula Oxygen Flow Rate 2 2 04/15/24 13:36 04/15/24 13:51 04/15/24 14:21 Temperature 36.3 C L 36.2 C L 36.2 C L Pulse Rate 95 96 96 Respiratory Rate 13 13 12 Blood Pressure 114/71 112/63 103/61 Pulse Oximetry 96 97 93 Oxygen Delivery Oxygen Flow Rate 04/15/24 15:21 04/15/24 15:25 04/15/24 19:21 Temperature 36.1 C L 36.2 C L Pulse Rate 92 105 H Respiratory Rate 13 13 Blood Pressure 99/54 L 114/56 L Pulse Oximetry 93 93 94 Oxygen Delivery Room Air Oxygen Flow Rate 04/15/24 23:21 04/16/24 03:21 04/16/24 08:00 Temperature 36.6 C 36.7 C 36.6 C Pulse Rate 95 90 94 Respiratory Rate 12 12 16 Blood Pressure 108/62 102/54 L 109/58 L Pulse Oximetry 97 96 93 Oxygen Delivery Oxygen Flow Rate 04/16/24 08:40 Temperature Pulse Rate Respiratory Rate Blood Pressure Pulse Oximetry Oxygen Delivery Room Air Oxygen Flow Rate Intake/Output Intake/Output: Intake & Output 04/13/24 04/14/24 04/15/24 04/16/24 23:59 23:59 23:59 23:59 Intake Total 990 120 Balance 990 120 Meds/Results Medications: Active Medications Generic Name Dose Route Start Last Admin Trade Name Freq PRN Reason Stop Dose Admin Acetaminophen 500 mg 04/15/24 13:36 Acetaminophen 500 Mg Tablet PO Q6H PRN Pain Rated 1-3 Hydrocodone Bitart/Acetaminophen 1 tab 04/15/24 13:36 04/16/24 01:58 Hydrocodone/Acetaminophen (*Crx) 5-325 Mg Tablet PO 1 tab Q4H PRN Administration Pain Rated 4-6 Aspirin 81 mg 04/16/24 09:00 04/16/24 08:39 Aspirin 81 Mg Enteric Tablet PO 05/16/24 08:59 81 mg DAILY CYNTHIA Administration Dextrose 12.5 gm 04/15/24 13:36 Dextrose 50% 25 Gm/50 Ml Syringe IV PUSH PRN PRN Hypoglycemia Protocol Enoxaparin Sodium 40 mg 04/16/24 09:00 04/16/24 08:43 Enoxaparin 40 Mg/0.4 Ml Syringe SUB-Q Not Given DAILY CYNTHIA Glucose 15 gm 04/15/24 13:36 Glucose Oral Gel 15 Gm Of Glucse In 37.5 Gm Tube PO PRN PRN Hypoglycemia Protocol Hydromorphone HCl 1 mg 04/15/24 13:36 Hydromorphone Hcl Inj (*Crx) 1 Mg/Ml Syr IV PUSH Q2H PRN Breakthrough Pain Rated 7-10 or NPO Hydromorphone HCl 0.5 mg 04/15/24 13:36 Hydromorphone Hcl Inj (*Crx) 1 Mg/Ml Syr IV PUSH Q2H PRN Breakthrough Pain Rated 4-6 or NPO Ibuprofen 800 mg in 200 mls @ 400 mls/hr 04/15/24 13:36 Caldolor 800 Mg/200 Ml IVPB Q6H PRN Breakthrough Pain Rated 1-3 or NPO Insulin Aspart 2 - 5 units 04/15/24 17:00 04/16/24 08:41 Insulin Aspart (*Bkc) 100 Units/Ml SUB-Q Not Given TIDWM [facility] Protocol Insulin Aspart 1 - 2 units 04/15/24 21:00 04/15/24 20:36 Insulin Aspart (*Bkc) 100 Units/Ml SUB-Q 1 units HS CYNTHIA Administration Protocol Metformin HCl 1,000 mg 04/15/24 17:00 04/16/24 08:41 Metformin Hcl 500 Mg Tablet PO 1,000 mg BIDWM CYNTHIA Administration Naloxone HCl 0.1 mg 04/15/24 13:36 Naloxone Hcl 0.4 Mg/Ml Vial IV PUSH Q2M PRN Opiate Reversal Ondansetron HCl 4 mg 04/15/24 13:36 Ondansetron Inj 4 Mg/2 Ml Vial IV PUSH Q4H PRN Nausea And Vomiting Oxycodone/Acetaminophen 1 tab 04/15/24 13:36 04/16/24 08:03 Oxycodone/Acetaminophen (*Crx) 10-325 Mg Tablet PO 1 tab Q6H PRN Administration Pain Rated 7-10 Rosuvastatin Calcium 20 mg 04/16/24 09:00 04/16/24 08:39 Rosuvastatin 20 Mg Tablet PO 20 mg DAILY CYNTHIA Administration Labs Labs: Laboratory Results - last 24 hr 04/15/24 04/15/24 04/15/24 13:18 16:22 17:24 WBC RBC Hgb Hct MCV MCH MCHC RDW Plt Count MPV Sodium Potassium Chloride Carbon Dioxide Anion Gap BUN Creatinine Estim Creat Clear Calc Estimated GFR Glucose POC Capillary Glucose 180 H 210 H 237 H Calcium 04/15/24 04/16/24 04/16/24 20:16 06:48 08:41 WBC 14.8 H RBC 2.99 L Hgb 8.9 L Hct 28.3 L MCV 94.6 MCH 29.8 MCHC 31.4 L RDW 14.1 Plt Count 230 MPV 9.7 Sodium 139 Potassium 4.3 Chloride 103 Carbon Dioxide 31 H Anion Gap 5 BUN 7 D Creatinine 0.52 L Estim Creat Clear Calc 83 Estimated GFR > 60 Glucose 123 H POC Capillary Glucose 215 H 141 H Calcium 8.7
[2024-04-16 11:49] LABS: Glucose Point of Care 132 mg/dl (65-105)
[2024-04-16 11:53] VITALS: BP 109/63; PULSE 89; RESP 16; TEMP 36.6; O2SAT 94
[2024-04-16] MEDS: ALVIMOPAN 12 MG CAPSULE PO ×2 (12:24→20:36)
[2024-04-16 15:54] VITALS: BP 115/71; PULSE 100; RESP 16; TEMP 37; O2SAT 93
[2024-04-16 16:39] LABS: Glucose Point of Care 177 mg/dl (65-105)
[2024-04-16] MEDS: HYDROmorphone HCL INJ (*CRX) 1 MG/ML SYR IV PUSH (17:22)
[2024-04-16 20:35] VITALS: BP 116/69; PULSE 102; RESP 18; TEMP 36.6; O2SAT 94
[2024-04-16 20:43] LABS: Glucose Point of Care 138 mg/dl (65-105)
--- OUTSIDE RECORDS SUMMARY | 2024-04-16 21:02 | XMS_ITS | Encounter Summary ---
Author Organization [facility] Healthcare Address [address] [place] [address] Care Team Providers Care Solvent Recoverer Name Role Phone Jose Guy MD Primary Care Provider [phone] Encounter Details Date Type Department Care Team ([facility] Contact Info) Description 03/04/[address] [facility] [place] Information Management [address] [place] [id number] Scanning, Provider Social History Tobacco Use Types Packs/Day Years Used Date Smoking Tobacco: Never Smokeless Tobacco: Never AUDIT-C Answer Date Recorded Q1: How often do you have a drink containing alc ohol? 2-4 times a month 11/21/2023 Q2: How many drinks containi ng alcohol do you have on a typical day when you are drinking? 1 or 2 11/21/2023 Q3: How often do you have si x or more drinks on one occasion? Never 11/21/2023 PHQ-2 Answer Date Recorded PHQ-2 Total Score (If total score is 3 or more points, staff should administer the PHQ-9) 0 12/12/2023 Comments No Sex and Gender Information Value Date Recorded Sex Assigned at Not on file Legal Sex Female 1:10 PM CDT Gender Identity Female 10/28/2022 3:39 PM CDT Sexual Orientation Not on file documented as of this encounter Plan of Treatment Not on file documented as of this encounter Procedures Procedure Name Priority Date/Time Associated Diagnosis Comments SCAN - LABS 03/04/2024 documented in this encounter Results * SCAN - LABS (03/04/2024) us Provider Scanning Final Result documented in this encounter Visit Diagnoses Not on filedocumented in this encounter Care Teams Solvent Recoverer Relationship Specialty Start Date End Date Jose Guy MD [address] [place] [address] [place] [id number] PCP - General Internal Medicine 11/21/23 documented as of this encounter
--- OUTSIDE RECORDS SUMMARY | 2024-04-16 21:02 | XMS_ITS | Referral Summary ---
Author Organization [facility] Address [address] [place] [phone] Care Team Providers Care Hydraulic Rockbreaker Operator Name Role Phone Jose Guy MD Primary Care Provider [phone] Encounters Date Type Department Care Team Description 04/15/2024 Telephone [facility] Internal Medicine [address] [place] [phone] Jose Guy MD 04/13/2024 2:15 PM ELEVATOR TECHNICIAN Office Visit [facility] Internal Medicine [address] [place] [phone] Jose Guy MD Dyslipidemia (Primary Dx); Gastroesophageal reflux disease without esophagitis; BMI 27.0-27.9,adult; Diabetes mellitus due to underlying condition, uncontrolled, with hyperglycemia (HCC); Malignant neoplasm of ascending colon (CMS/HCC) (HCC); Abnormal Papanicolaou smear of cervix with positive human papilloma virus (HPV) test 03/06/2024 Orders Only [facility] Internal Medicine [address] [place] [phone] ProviderDyan MD 03/05/2024 Telephone [facility] Internal Medicine [address] [place] [phone] Jose Guy MD 03/04/2024 Orders Only [facility] [place] Information Management [address] [place] [phone] Scanning, Provider 02/03/2024 Telephone [facility] Obstetrical Gynecology [address] [facility] [address] [place] [address] Slime Tabor LPN 01/27/2024 Orders Only [facility] Obstetrical Gynecology [address] [facility] [address] [place] [phone] Oral Lozano MD 01/27/2024 3:30 PM ELEVATOR TECHNICIAN - 01/27/2024 11:59 PM ELEVATOR TECHNICIAN Hospital Encounter [facility] [address] [place] [address] LGSIL on Pap smear of cervix; Abnormal Papanicolaou smear of cervix with positive human papilloma virus (HPV) test Discharge Disposition: Discharge to home or self care 01/27/2024 10:00 AM ELEVATOR TECHNICIAN Office Visit [facility] Obstetrical Gynecology [address] [facility] [address] [place] [address] Oral Lozano MD LGSIL on Pap smear of cervix; Abnormal Papanicolaou smear of cervix with positive human papilloma virus (HPV) test from Last 3 Months Allergies No known active allergies Medications lancets (freestyle) 28 gauge misc Test three times daily 300 each 1 4 Active Freestyle InsuLinx Test Strips strip TEST 3 TIMES A DAY 300 strip 1 4 Active rosuvastatin (CRESTOR) 20 mg tablet Take 1 tablet (20 mg total) by mouth daily 30 tablet 5 04/13/19 26 Active aspirin 81 mg enteric coated tablet Take 1 tablet (81 mg total) by mouth daily 30 tablet 5 04/13/19 26 Active metFORMIN (GLUCOPHAGE) 1,000 mg tablet 1 BID 60 tablet 5 Active rosuvastatin (CRESTOR) 20 mg tablet Take 1 tablet (20 mg total) by mouth daily 30 tablet 4 04/13/19 25 Discontinu ed(Reorder ) aspirin 81 mg enteric coated tablet Take 1 tablet (81 mg total) by mouth daily 30 tablet 4 04/13/19 25 Discontinu ed(Reorder ) metFORMIN XR (GLUCOPHAGE XR) 500 mg 24 hr tablet Take 2 tablets (1,000 mg total) by mouth 2 (two) times a day 04/13/19 25 Discontinu ed(Reorder ) metFORMIN XR (GLUCOPHAGE XR) 500 mg 24 hr tablet Take 2 tablets (1,000 mg total) by mouth 2 (two) times a day 30 tablet 5 5 04/13/19 25 Discontinu ed(Therapy completed) Active Problems Problem Noted Date Diagnosed Date Malignant neoplasm of ascending colon (CMS/HCC) 04/13/2024 Assessment & Plan (04/13/2024 2:56 PM ELEVATOR TECHNICIAN): Patient had colonoscopy in February 2023 that showed malignant tumor in the ascending colon. She is scheduled for resection in couple of days. Advised to hold aspirin. Abnormal Papanicolaou smear of cervix with positive human papilloma virus (HPV) test 01/27/2024 Overview (04/13/2024): Managed by the microbiology teacher Assessment & Plan (04/13/2024 2:58 PM ELEVATOR TECHNICIAN): Managed by the microbiology teacher Encounter for well woman carito arechiga with routine gynecological exam 12/12/2023 Assessment & Plan (12/12/2023 10:40 AM CDT): Pap smear with HPV cotesting completed. Order for mammogram. We will notify the patient of all results. Follow up in one year or sooner if needed. Patient verbalizes understanding regarding plan of care and all questions answered. Dyslipidemia 11/21/2023 Assessment & Plan (04/13/2024 7:56 AM ELEVATOR TECHNICIAN): LDL is 37. Continue Crestor and low-fat diet Assessment & Plan (11/21/2023 2:43 PM CDT): Patient with history of hyperlipidemia. She is not on medications. Discussed low-fat diet. Discussed exercise on regular basis. Pamphlets were given. Uncontrolled diabetes mellitus with hyperglycemi a 05/31/2023 Assessment & Plan (04/13/2024 2:57 PM ELEVATOR TECHNICIAN): Hemoglobin A1c 7.6. Metformin was increased to 1 g b.i.d.. Continue to watch diet. Patient said that she had eye exam last year. Assessment & Plan (11/21/2023 2:44 PM CDT): Hemoglobin A1c in April 2023 was 11.4. Patient had recent eye exam. Discussed the importance of diet and exercise and weight loss. Will repeat blood work. And will make recommendations according to that. Gastroesophageal reflux disease without esophagi tis 01/24/2023 Immunizations Name Administration Dates Next Due Influenza, Quadrivalent, Marian l Culture-based MDCK, Antibiotic Free, Intramuscular 03/13/2018 Influenza, Quadrivalent, Rec ombinant, Egg Free, Preservative Free, Intramuscular 01/07/2019 Influenza, Quadrivalent, Spl it, Intramuscular 04/12/2013 Influenza, Quadrivalent, Spl it, Preservative Free, Intramuscular 01/24/2023 Influenza, Trivalent, IM (MDV) 02/08/2014 Influenza, Trivalent, Preser vative Free, Intramuscular 03/01/2016,02/20/2015 Influenza, Unspecified 04/13/2024(Deferred: Deirdre ent Refused) Tdap 01/07/2019 Social History Tobacco Use Types Packs/Day Years Used Date Smoking Tobacco: Never Smokeless Tobacco: Never AUDIT-C Answer Date Recorded Q1: How often do you have a drink containing alc ohol? Monthly or less 04/13/2024 Q2: How many drinks containi ng alcohol do you have on a typical day when you are drinking? 1 or 2 04/13/2024 Q3: How often do you have si x or more drinks on one occasion? Never 04/13/2024 PHQ-2 Answer Date Recorded PHQ-2 Total Score (If total score is 3 or more points, staff should administer the PHQ-9) 0 04/13/2024 Comments No Sex and Gender Information Value Date Recorded Sex Assigned at Not on file Legal Sex Female 1:10 PM CDT Gender Identity Female 10/28/2022 3:39 PM CDT Sexual Orientation Not on file Last Filed Vital Signs Vital Sign Reading Time Taken Comments Blood Pressure 112/64 04/13/2024 2:36 PM ELEVATOR TECHNICIAN Pulse 100 04/13/2024 2:36 PM ELEVATOR TECHNICIAN Temperature 36.2 ??C (97.2 ??F) 04/13/2024 2:36 PM CS T Respiratory Rate 16 04/13/2024 2:36 PM ELEVATOR TECHNICIAN Oxygen Saturation 98% 04/13/2024 2:36 PM ELEVATOR TECHNICIAN Inhaled Oxygen Concentration - - Weight 71.7 kg (158 lb) 04/13/2024 2:36 PM ELEVATOR TECHNICIAN Height 162.6 cm (5' 4 ) 04/13/2024 2:36 PM ELEVATOR TECHNICIAN Body Mass Index 27.12 04/13/2024 2:36 PM ELEVATOR TECHNICIAN Plan of Treatment Not on file Procedures Procedure Name Priority Date/Time Associated Diagnosis Comments TSH Routine 03/04/2024 8:56 AM ELEVATOR TECHNICIAN Thyroid disorder screen T4, FREE Routine 03/04/2024 8:56 AM ELEVATOR TECHNICIAN Thyroid disorder screen ALBUMIN CREATININE RATIO, URINE Routine 03/04/2024 8:56 AM ELEVATOR TECHNICIAN Uncontrolled diabetes mellitus with hyperglycemia (HCC) HEMOGLOBIN A1C Routine 03/04/2024 8:56 AM ELEVATOR TECHNICIAN Uncontrolled diabetes mellitus with hyperglycemia (HCC) LIPID PANEL Routine 03/04/2024 8:56 AM ELEVATOR TECHNICIAN Uncontrolled diabetes mellitus with hyperglycemia (HCC) Dyslipidemia COMPREHENSIVE METABOLIC PANEL Routine 03/04/2024 8:56 AM ELEVATOR TECHNICIAN Uncontrolled diabetes mellitus with hyperglycemia (HCC) HEPATITIS C ANTIBODY Routine 03/04/2024 8:56 AM ELEVATOR TECHNICIAN SCAN - LABS 03/04/2024 COLONOSCOPY Routine 02/27/2024 9:56 AM ELEVATOR TECHNICIAN SURGICAL PATHOLOGY Routine 01/27/2024 2: 25 PM ELEVATOR TECHNICIAN [place] COLPOSCOPY CERVIX ENDOCERVICAL CURETTAGE Routine 01/27/2024 10:00 AM ELEVATOR TECHNICIAN LGSIL on Pap smear of cervix Abnormal Papanicolaou smear of cervix with positive human papilloma virus (HPV) test HIGH RISK HPV DNA DETECTION WITH GENOTYPING Routine 12/13/2023 11:01 AM CDT Cervical cancer screening DIABETES EYE EXAM Routine 09/30/2023 10:01 AM CDT SCREENING MAMMOGRAM BILATERAL W [place] Schedule Routine, Read Routine (OP Routine) 08/07/2023 1:17 PM CDT Screening mammogram for breast cancer from Last 3 Months or Most Recently Relevant to Health Maintenance Results * Hepatitis C antibody (03/04/2024 8:56 AM ELEVATOR TECHNICIAN) Hep C Ab NON-REACTI VE NON-REACT PANKAJ [facility] Comment: HCV antibody was non-reactive. There is no laboratory evidence of HCV infection. In most cases, no further action is required. However, if recent HCV exposure is suspected, a test for HCV RNA (test code 83285) is suggested. For additional information please refer to http://education.Ekinops/faq/PXT90n3 (This link is being provided for informational/ educational purposes only.) 03/04/2024 8:56 AM ELEVATOR TECHNICIAN 03/04/2024 8:57 AM ELEVATOR TECHNICIAN Narrative [facility] - 03/05/2024 5:37 AM ELEVATOR TECHNICIAN FASTING:YES FASTING: YES Jose Guy MD LAB MICROBIOLOGY - GENERAL ORDERABLES Final Result [facility] [address] [place] [address] * Albumin Creatinine Ratio, Urine (03/04/2024 8:56 AM ELEVATOR TECHNICIAN) Creatinine, ur 110 20 - 275 mg/dL [facility] Microalbumin, ur 0.6 See Note: mg/dL [facility] Comment: Reference Range: Reference Range Not established Microalbumin/creat ratio 5 <30 mg/g creat [facility] Comment: The ADA defines abnormalities in albumin excretion as follows: Albuminuria Category ?Result (mg/g creatinine) Normal to Mildly increased ?? <30 Moderately increased ? 30-299 Severely increased ? > OR = 300 The ADA recommends that at least two of three specimens collected within a 3-6 month period be abnormal before considering a patient to be within a diagnostic category. Urine 03/04/2024 8:56 AM ELEVATOR TECHNICIAN 03/04/2024 8:57 AM ELEVATOR TECHNICIAN Narrative [facility] - 03/05/2024 5:37 AM ELEVATOR TECHNICIAN FASTING:YES FASTING: YES Jose Guy MD LAB URINE ORDERABLES Final Result Performing Organization Address City/[facility] Co de Phone Number [facility] [address] [place] [address] * TSH (03/04/2024 8:56 AM ELEVATOR TECHNICIAN) TSH 2.95 0.40 - 4.50 mIU/L [facility] Blood 03/04/2024 8:56 AM ELEVATOR TECHNICIAN 03/04/2024 8:57 AM ELEVATOR TECHNICIAN Narrative [facility] - 03/05/2024 5:37 AM ELEVATOR TECHNICIAN FASTING:YES FASTING: YES Jose Guy MD LAB BLOOD ORDERABLES Final Result Performing Organization Address [facility] de Phone Number [facility] [address] [place] [address] * T4, free (03/04/2024 8:56 AM ELEVATOR TECHNICIAN) Free T4 1.1 0.8 - 1.8 ng/dL [facility] Blood 03/04/2024 8:56 AM ELEVATOR TECHNICIAN 03/04/2024 8:57 AM ELEVATOR TECHNICIAN Narrative [facility] - 03/05/2024 5:37 AM ELEVATOR TECHNICIAN FASTING:YES FASTING: YES Jose Guy MD LAB BLOOD ORDERABLES Final Result Performing Organization Address [facility] Co de Phone Number [facility] [address] [place] [address] * (ABNORMAL) Hemoglobin A1c (03/04/2024 8:56 AM ELEVATOR TECHNICIAN) Pathologist [facility] Hgb A1C 7.6(H) <5.7 % of total Hgb [facility] Comment: For someone without known diabetes, a hemoglobin A1c value of 6.5% or greater indicates that they may have diabetes and this should be confirmed with a follow-up test. For someone with known diabetes, a value <7% indicates that their diabetes is well controlled and a value greater than or equal to 7% indicates suboptimal control. A1c targets should be individualized based on duration of diabetes, age, comorbid conditions, and other considerations. Currently, no consensus exists regarding use of hemoglobin A1c for diagnosis of diabetes for children. ?? Blood 03/04/2024 8:56 AM ELEVATOR TECHNICIAN 03/04/2024 8:57 AM ELEVATOR TECHNICIAN Narrative [facility] - 03/05/2024 5:37 AM ELEVATOR TECHNICIAN FASTING:YES FASTING: YES Jose Guy MD LAB BLOOD ORDERABLES Final Result [facility] [address] [place] [address] * (ABNORMAL) Lipid panel (03/04/2024 8:56 AM ELEVATOR TECHNICIAN) [facility] Cholesterol 95 <200 mg/dL [facility] HDL 44(L) > OR = 50 mg/dL [facility] Triglycerides 65 <150 mg/dL [facility] LDL 37 mg/dL (calc) [facility] Comment: Reference range: <100 Desirable range <100 mg/dL for primary prevention; ?? <70 mg/dL for patients with CHD or diabetic patients with > or = 2 CHD risk factors. LDL-C is now calculated using the Raymond-Milli calculation, which is a validated novel method providing better accuracy than the Friedewald equation in the estimation of LDL-C. Raymond VALENZUELA et al. SIMA. 2013;310(19): 1207-9120 (http://education.Hospitalists Now/faq/RCO125) Chol/HDL ratio 2.2 <5.0 (calc) [facility] Non-HDL, (LDL+VLDL) 51 <130 mg/dL (calc) [facility] Comment: For patients with diabetes plus 1 major ASCVD risk factor, treating to a non-HDL-C goal of <100 mg/dL (LDL-C of <70 mg/dL) is considered a therapeutic option. Blood 03/04/2024 8:56 AM ELEVATOR TECHNICIAN 03/04/2024 8:57 AM ELEVATOR TECHNICIAN Narrative [facility] - 03/05/2024 5:37 AM ELEVATOR TECHNICIAN FASTING:YES FASTING: YES Jose Guy MD LAB BLOOD ORDERABLES Final Result [facility] [address] [place] [address] * (ABNORMAL) Comprehensive metabolic panel (03/04/2024 8:56 AM ELEVATOR TECHNICIAN) Glucose 161(H) 65 - 99 mg/dL [facility] Comment: ? Fasting reference interval For someone without known diabetes, a glucose value >125 mg/dL indicates that they may have diabetes and this should be confirmed with a follow-up test. BUN 13 7 - 25 mg/dL [facility] Creatinine 0.66 0.50 - 1.05 mg/dL [facility] eGFR 100 > OR = 60 mL/min/1.7 3m2 [facility] BUN/creat ratio SEE NOTE: (calc) [facility] Comment: ?? Not Reported: BUN and Creatinine are within ?? reference range. ? Sodium 138 135 - 146 mmol/L [facility] Potassium, pl 4.0 3.5 - 5.3 mmol/L [facility] Chloride 102 98 - 110 mmol/L [facility] CO2 28 20 - 32 mmol/L [facility] Calcium 9.3 8.6 - 10.4 mg/dL [facility] Protein, sr 7.4 6.1 - 8.1 g/dL [facility] Albumin 4.3 3.6 - 5.1 g/dL [facility] GLOBULIN 3.1 1.9 - 3.7 g/dL (calc) [facility] Alb/glob ratio 1.4 1.0 - 2.5 (calc) [facility] Bilirubin, total 0.8 0.2 - 1.2 mg/dL [facility] Alk phos 76 37 - 153 U/L [facility] AST 16 10 - 35 U/L [facility] ALT (SGPT) 11 6 - 29 U/L [facility] Blood 03/04/2024 8:56 AM ELEVATOR TECHNICIAN 03/04/2024 8:57 AM ELEVATOR TECHNICIAN Narrative [facility] - 03/05/2024 5:37 AM ELEVATOR TECHNICIAN FASTING:YES FASTING: YES Jose Guy MD LAB BLOOD ORDERABLES Final Result [facility] [address] [place] [address] * SCAN - LABS (03/04/2024) Provider Scanning Final Result * Colonoscopy (02/27/2024 9:56 AM ELEVATOR TECHNICIAN) Anatomical Region Laterality Modality Other Historical Provider ENDOSCOPY PROCEDURES Ayana l Result * Surgical pathology (01/27/2024 2:25 PM ELEVATOR TECHNICIAN) Endocervix, Biopsy 01/27/2024 2:25 PM ELEVATOR TECHNICIAN 01/28/2024 7:24 AM ELEVATOR TECHNICIAN Narrative 01/29/2024 3:25 PM ELEVATOR TECHNICIAN [facility] Department of Pathology [address] [place] [phone] ?? Note to Patients: ??This report may contain a detailed description of human tissue sent by a health care provider to the laboratory for pathologic evaluation. ??The content of this report is essential for diagnosis and may provide important critical findings. ??This information may be unfamiliar to patients to review without a medical professional present. ?? It is advised that the patient review this report in the presence of a health care provider who can answer questions and explain the details. Final Report Patient Name: DAYNA FIERRO : ??1965 (Age: 58) Gender: ??F Address: ??[address], [place] [address] [facility] #: [id number] Service: DEFAULT Location: Patient Type: [facility] SPECIMEN ? Taken: 01/27/2024 Received: 01/28/2024 Accessioned: 01/28/2024 Reported: 01/29/2024 Physician(s): Dr. Oral Lozano M.D. Diagnosis: Cervix, endocervix, curettage ? - Low-grade squamous intraepithelial lesion (LSIL, SRIRAM 1) ? - Strips of unremarkable endocervical epithelium Ghazal Burrell MD Report Electronically Reviewed and Signed Out By ??Ghazal Burrell MD 01/29/2024 15:25:12 Specimen(s) Received: A: ECC Microscopic Description: Unless gross-only is specified, the final diagnosis for each specimen is based on a microscopic examination of each tissue sample. Clinical History: The patient is a 58-year-old woman with LGSIL on Pap smear of the cervix and is HPV virus positive. ??Operative procedure: Endocervical curettage. Gross Description Received in formalin, labeled with the patient? ? s identifiers and ECC and consists of a plastic bristled brush containing a 0.6 x 0.6 x 0.1 cm aggregate of clear mucoid material admixed with guerra-white tissue fragments. ??Filtered and entirely submitted. ?? Labeled A1. Jar 0. ?? jjmhb/01/28/2024 10:56 HAYLEY Rose PA (ASCP) Microscopic slide review and interpretation for this case was performed at [facility], Department of Surgical Pathology, [address] [facility] [place], [place] [id number], ??[facility], [place] ??[address] ?? CLIA # [id number] Oral Lozano MD LAB PATHOLOGY ORDERABLES F inal Result * [place] COLPOSCOPY CERVIX ENDOCERVICAL CURETTAGE (01/27/2024 10:00 AM ELEVATOR TECHNICIAN) Narrative Oral Lozano MD - 01/27/2024 10:00 AM ELEVATOR TECHNICIAN Oral Lozano MD ? 01/27/2024 11:12 AM Colposcopy with ECC Performed by: Oral Lozano MD Authorized by: Oral Lozano MD ??Consent given by: patient Pre-procedure: ??Prepped with: acetic acid and Lugol ?? 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, ASC-H and HPV Procedure: ??Procedure: Colposcopy w/ endocervical curettage ?[place] speculum was placed in the vagina: yes ?Under colposcopic examination the transition zone was seen in entirety: yes ?Endocervix was curetted using a Kevorkian curette: yes ??no Post-procedure: ??Findings: White epithelium ?Impression comment: ??At least SRIRAM 1 ??Patient tolerance of procedure: ??Patient tolerated the procedure well with no immediate complications Oral Lzoano MD IN CLINIC/BEDSIDE ORDERABL ES Final Result * (ABNORMAL) High Risk HPV DNA Detection with Genotyping (Molecular component) (12/13/2023 11:01 AM CDT) HPV HR 16 Not Detected Not Detected [facility] Comment:Testing performed by : [facility], [address] [facility] [place]., [address] HPV HR 18 Not Detected Not Detected KEENA CEVALLOS Comment:Testing performed by : [facility], [address] [facility] [place]., [address] HPV HR Non 16/18 Detected(A) Not Detected KEENA CEVALLOS Comment: Interpretive Data Nucleic acid amplification for detection of high-risk Human Papilloma virus (HPV) is performed by the Chele Tiana 6800 HPV test. ??This assay specifically detects HPV-16 and HPV-18 genotypes. ??The following HPV genotypes are detected as high-risk HPV: ?? HPV-31, 33, 35, ,39, 45, 51, 52, 56, 58, 59, 66, and 68. ??This assay has been approved by the [place] Food and Drug Administration for detection of HPV in cervical specimens collected by a physician using an endocervical brush/spatula or cervical broom and placed in the ThinPrep Pap Test PreservCyt collection containers. ??The performance characteristics of this test have been verified by the [facility] Molecular Infectious Disease laboratory. Correlate with separately reported cytology results, as applicable. Interpretive data last revised 22 Testing performed by: [facility], [address] [facility] [place]., [address] Endocervical 12/13/2023 11:0 1 AM CDT 12/16/2023 9:08 AM CDT Narrative [facility] - 12/16/2023 9:53 PM CDT Clinical history and diagnosis->screening Testing type->Screening Last menstrual period (date if known)->>5 years Menstrual status->Postmenopausal Previous negative PAP?->Yes Previous atypical cytology->ASCUS Eduarda Pop NP LAB BODY FLUIDS AND STOOLS OR DERABLES Final Result [facility] [address] [facility] Department [place] [address] [facility] * DIABETES EYE EXAM (09/30/2023 10:01 AM CDT) SCRIBED DIABETIC DILATED EYE EXAM Normal Historical Provider HEALTH MAINTENANCE Final Result * Screening Mammogram Bilateral [place] (08/07/2023 1:17 PM CDT) Anatomical Region Laterality Modality Breast Bilateral Mammography Impressions 08/07/2023 1:57 PM CDT BI-RADS?? ATLAS category (overall): 2 - Benign There is no mammographic evidence of malignancy. A 1 year screening mammogram is recommended. The patient has been or will be contacted. We recommend annual screening mammography for women at average risk of breast cancer beginning at age 40, based on guidelines of the [employer] (ACR Practice Parameter for the Performance of Screening and Diagnostic Mammography) and [employer] [place]. For women with and elevated risk of breast cancer, please refer to the ACR Practice Parameter for specific screening recommendations. The patient will be entered into a reminder system with a target due date of 1 year for her next screening exam. Narrative 08/07/2023 1:57 PM CDT Screening Mammogram Bilateral [place]: 08/07/23 The study was acquired using full field digital technology and interpreted from soft copy. 2D digital mammographic views, as well as 3D digital tomosynthesis were performed in the CC and MLO projections. CLINICAL: ??Screening mammogram for breast cancer. ??No relevant medical history has been documented for this patient. ??History of breast cancer in Mother, Sister. COMPARISON: ??New Baseline Screening Mammography. No prior mammography is available for comparison. BREAST TISSUE: The breasts are heterogeneously dense, which may obscure small masses. FINDINGS: There are multiple similar-appearing, small round and oval masses with partially circumscribed, partially obscured margins in both breasts. These are considered to be benign based on their multiplicity, bilaterality, and morphology. There also are benign appearing calcifications in both breasts. No suspicious masses, suspicious calcifications, or other suspicious findings are seen within either breast. Katlyn Evans MD IMG MAMMO PROCEDURES Final R esult from Last 3 Months or Most Recently Relevant to Health Maintenance Insurance [facility] OPEN ACCESS CIG[employer] OPEN ACCESS CIGNA OPEN ACCESS Care Teams Hydraulic Rockbreaker Operator Relationship Specialty Start Date End Date Jose Guy MD [address] [facility] [place] [address] PCP - General Internal Medicine 11/21/23
--- OUTSIDE RECORDS SUMMARY | 2024-04-16 21:02 | XMS_ITS | Encounter Summary ---
Author Organization [facility] Healthcare Address [address] [place] [address] Care Team Providers Care Dual Hose Cementer Name Role Phone Katlyn Evans MD Primary Care Provider + [phone] Jose Guy MD Primary Care Provider [phone] Encounter Details Date Type Department Care Team ([facility] Contact Info) Description 03/27/2023 Orders Only [facility] [place] Management [address] [place] [address] Scanning, Provider Social History Tobacco Use Types Packs/Day Years Used Date Smoking Tobacco: Never AUDIT-C Answer Date Recorded Q1: How often do you have a drink containing alc ohol? Monthly or less 01/24/2023 Q2: How many drinks containi ng alcohol do you have on a typical day when you are drinking? 1 or 2 01/24/2023 Q3: How often do you have si x or more drinks on one occasion? Less than monthly 01/24/2023 PHQ-2 Answer Date Recorded PHQ-2 Total Score (If total score is 3 or more points, staff should administer the PHQ-9) 0 01/24/2023 Comments Unknown Sex and Gender Information Value Date Recorded Sex Assigned at Not on file Legal Sex Female 1:10 PM CDT Gender Identity Female 10/28/2022 3:39 PM CDT Sexual Orientation Not on file documented as of this encounter Plan of Treatment Not on file documented as of this encounter Procedures Procedure Name Priority Date/Time Associated Diagnosis Comments SCAN - LABS 03/27/2023 documented in this encounter Results * SCAN - LABS (03/27/2023) us Provider Scanning Final Result documented in this encounter Visit Diagnoses Not on filedocumented in this encounter Additional Health Concerns Infection Onset Date Last Indicated Resolved Time COVID: Suspected 05/01/2023 05/01/2023 05/02/2023 3:05 AM WOODWORKING MACHINE FEEDER COVID: Suspected 05/01/2023 05/01/2023 05/02/2023 11:03 AM WOODWORKING MACHINE FEEDER documented as of this encounter Care Teams Dual Hose Cementer Relationship Specialty Start Date End Date Katlyn Evans MD PCP - General Internal Medicine 01/25/23 11/20/23 Jose Guy MD [address] [place] [address] PCP - General Internal Medicine 11/21/23 documented as of this encounter
--- OUTSIDE RECORDS SUMMARY | 2024-04-16 21:02 | XMS_ITS | Continuity of Care Document ---
Author Organization Located within [facility] Address [address] [place] [address] [address] [place] [address] Phone Care Team Providers Care Ski Patrol Name Role Phone Brittny, Edward Unavailable Unavailable Advance Directives Directive Yes / No Effective Date File Name No Information Encounters Encounter Description Practice Location Reason(s) For Visit Diagnoses Date Provider Providers Copied on Encounter [facility], [address], [place], [place], [id number], [place] tel:[phone] [facility] No Information Dec-0 [phone] Doisy Edward. [address] , [address], [place], [address], [place]. tel:[phone] Family History Family Member Type Diagnosis Age At Onset No Information Payers Payer name Insurance type Covered republican ID Authoriza tion(s) No Information Social History Type Description Quantity Date Captured Comments Sex Female Smoking Status No Information Chief Complaint And Reason For Visit No Information Reason For Referral Reason For Referral No Information History Of Present Illness Encounter Date Complaint History Of Prese nt Illness No Information Functional Status Date Functional Assessmen t No Information Instructions Date Instruction Additional Infor mation No Information Assessments Type Assessment Date No Information Patient Care Teams Name Effective Dates (start - stop) Status Members No Information
--- OUTSIDE RECORDS SUMMARY | 2024-04-16 21:02 | XMS_ITS | Clinical Summary ---
Author Organization [facility] [address] [place] [phone] Care Team Providers Care Machining Associate Name Role Phone Jose Guy MD Primary Care Provider [phone] Allergies No known active allergies Medications lancets [...] mg total) by mouth daily 30 tablet 04/13/19 25 Discontinu ed(Reorder ) aspirin 81 mg enteric coated tablet Take 1 tablet (81 mg total) by mouth daily 30 tablet 04/13/19 25 Discontinu ed(Reorder ) metFORMIN XR [...] 04/13/2024 Assessment & Plan (04/13/2024 2:56 PM REJECTOR): Patient had colonoscopy in February 2023 that showed malignant tumor in the ascending colon. She is scheduled for resection in couple of days. Advised to hold aspirin. Abnormal Papanicolaou smear of cervix with positive human papilloma virus (HPV) test 01/27/2024 Overview (04/13/2024): Managed by the assembly line inspector Assessment & Plan (04/13/2024 2:58 PM REJECTOR): Managed by the assembly line inspector Encounter for well woman carito arechiga with routine gynecological exam 12/12/2023 Assessment & Plan (12/12/2023 10:40 AM CDT): Pap smear with HPV cotesting completed. Order for mammogram. We will notify the patient of all results. Follow up in one year or sooner if needed. Patient verbalizes understanding regarding plan of care and all questions answered. Dyslipidemia 11/21/2023 Assessment & Plan (04/13/2024 7:56 AM REJECTOR): LDL is 37. Continue Crestor and low-fat diet Assessment & Plan (11/21/2023 2:43 PM CDT): Patient with history of hyperlipidemia. She is not on medications. Discussed low-fat diet. Discussed exercise on regular basis. Pamphlets were given. Uncontrolled diabetes mellitus with hyperglycemi a 05/31/2023 Assessment & Plan (04/13/2024 2:57 PM REJECTOR): Hemoglobin A1c 7.6. Metformin was increased to [...] Gastroesophageal reflux disease without esophagi tis 01/24/2023 Encounters Date Type Department Care Team Description 04/15/2024 Telephone [facility] Internal Medicine [address] [place] [phone] Jose Guy MD 04/13/2024 2:15 PM REJECTOR Office Visit [facility] Internal Medicine [address] [place] [phone] Jose Guy MD Dyslipidemia (Primary Dx); Gastroesophageal reflux disease without esophagitis; BMI 27.0-27.9,adult; Diabetes mellitus due to underlying condition, uncontrolled, with hyperglycemia (HCC); Malignant neoplasm of ascending colon (CMS/HCC) (HCC); Abnormal Papanicolaou smear of cervix with positive human papilloma virus (HPV) test 03/06/2024 Orders Only [facility] Internal Medicine [address] [place] [phone] ProviderDyan MD 03/05/2024 Telephone [facility] Internal Medicine [address] [place] [phone] Jose Guy MD 03/04/2024 Orders Only [facility] Health Information Management [address] [place] [address] Scanning, Provider 02/03/2024 Telephone [facility] Obstetrical Gynecology [address] [place] [phone] Slime Tabor LPN 01/27/2024 3:30 PM REJECTOR - 01/27/2024 11:59 PM REJECTOR Hospital Encounter [facility] [address] [place] [phone] LGSIL on Pap smear of cervix; Abnormal Papanicolaou smear of cervix with positive human papilloma virus (HPV) test Discharge Disposition: Discharge to home or self care 01/27/2024 10:00 AM REJECTOR Office Visit [facility] Obstetrical Gynecology [address] [facility] [address] [place] [address] Oral Lozano MD LGSIL on Pap smear of cervix; Abnormal Papanicolaou smear of cervix with positive human papilloma virus (HPV) test 01/27/2024 Orders Only [facility] Obstetrical Gynecology [address] [facility] [address] [place] [address] Oral Lozano MD from Last 3 Months Immunizations Name Administration Dates Next Due Influenza, Quadrivalent, Marian l Culture-based MDCK, Antibiotic Free, Intramuscular 03/13/2018 Influenza, Quadrivalent, Rec ombinant, Egg Free, Preservative Free, Intramuscular 01/07/2019 Influenza, Quadrivalent, Spl it, Intramuscular 04/12/2013 Influenza, Quadrivalent, Spl it, Preservative Free, Intramuscular 01/24/2023 Influenza, Trivalent, IM (MDV) 02/08/2014 Influenza, Trivalent, Preser vative Free, Intramuscular 03/01/2016,02/20/2015 Influenza, Unspecified 04/13/2024(Deferred: Deirdre ent Refused) Tdap 01/07/2019 Surgical History Surgery Date Site/Laterality Comments CHOLECYSTECTOMY TUBAL LIGATION Medical History Medical History Date Comments Diabetes mellitus (HCC) GERD (gastroesophageal reflux disease) Family History Medical History Relation Name Comments Thyroid cancer Brother Heart attack Father Breast cancer Mother Christelle Heart disease Mother Christelle Breast cancer Sister Relation Name Status Comments Brother Alive Father Mother Christelle Sister Alive Son Alive Social History Tobacco Use Types Packs/Day Years [...] PM CDT Sexual Orientation Not on file Obstetrics History Para Term AB IAB SAB Ectopic Multiple Livin g Live Births 2 2 2 Date Outcome GA Total Labor Labor/2nd/3rd Weight Sex Type Anes PTL Vidya A1 A5 Name Clin Term Term Last Filed Vital Signs Vital Sign Reading Time Taken Comments Blood Pressure 112/64 04/13/2024 2:36 PM REJECTOR Pulse 100 04/13/2024 2:36 PM REJECTOR Temperature 36.2 ??C (97.2 ??F) 04/13/2024 2:36 PM CS T Respiratory Rate 16 04/13/2024 2:36 PM REJECTOR Oxygen Saturation 98% 04/13/2024 2:36 PM REJECTOR Inhaled Oxygen Concentration - - Weight 71.7 kg (158 lb) 04/13/2024 2:36 PM REJECTOR Height 162.6 cm (5' 4 ) 04/13/2024 2:36 PM REJECTOR Body Mass Index 27.12 04/13/2024 2:36 PM REJECTOR Plan of Treatment Health Maintenance Due Date Last Done Comments Pneumococcal vaccine <65 (1 of 2 - PCV) 11/27/1969 Hepatitis B Screening 11/27/1981 Zoster Vaccine (1 of 2) 11/27/2013 Covid-19 Vaccine (3 - 2023-2 5 season) 2023 08/16/2020, 07/26/2020 Influenza Vaccine (#1) 2023 , 01/07/2019, 03/13/2018, Additional history exists Foot Exam 05/22/2024 05/22/2023 Breast Cancer Screening-Mammogram 08/06/2024 024 Hemoglobin A1C 09/02/2024 03/04/2024, 06, 05/14/2023, Additional history exists Dilated Eye Exam 09/29/2024 09/30/2023, 08/02/2022 Regular Well Visit/Exam 18-64 12/11/2024 12/12/2023 Cervical Cancer Screening 12/12/2024 12/13/2023, Colon Cancer Screening-Colonoscopy 02/26/20252023 Albumin Creatinine Ratio, Urine 03/04/2025 Lipid Panel 03/04/2025 03/04/2024, 03/27/2023 eGFR 03/04/2025 03/04/2024, 04/26, 03/27/2023 Depression Screening 04/13/2025 04/13/2024, 12/12/2023, 11/21/2023, Additional history exists DTaP/Tdap/Td Vaccine (2 - Td or Tdap) 01/07/2029 01/07/2019 Hepatitis C Screening Completed 03/04/2024 Procedures Procedure Name Priority Date/Time Associated Diagnosis Comments TSH Routine 03/04/2024 8:56 AM REJECTOR Thyroid disorder screen T4, FREE Routine 03/04/2024 8:56 AM REJECTOR Thyroid disorder screen ALBUMIN CREATININE RATIO, URINE Routine 03/04/2024 8:56 AM REJECTOR Uncontrolled diabetes mellitus with hyperglycemia (HCC) HEMOGLOBIN A1C Routine 03/04/2024 8:56 AM REJECTOR Uncontrolled diabetes mellitus with hyperglycemia (HCC) LIPID PANEL Routine 03/04/2024 8:56 AM REJECTOR Uncontrolled diabetes mellitus with hyperglycemia (HCC) Dyslipidemia COMPREHENSIVE METABOLIC PANEL Routine 03/04/2024 8:56 AM REJECTOR Uncontrolled diabetes mellitus with hyperglycemia (HCC) HEPATITIS C ANTIBODY Routine 03/04/2024 8:56 AM REJECTOR SCAN - LABS 03/04/2024 COLONOSCOPY Routine 02/27/2024 9:56 AM REJECTOR SURGICAL PATHOLOGY Routine 01/27/2024 2: 25 PM REJECTOR MS COLPOSCOPY CERVIX ENDOCERVICAL CURETTAGE Routine 01/27/2024 10:00 AM REJECTOR LGSIL on Pap smear of cervix Abnormal [...] * Hepatitis C antibody (03/04/2024 8:56 AM REJECTOR) Hep C Ab NON-REACTI VE NON-REACT PANKAJ [facility] Comment: HCV antibody was non-reactive. There is no laboratory evidence of HCV infection. In most cases, no further action is required. However, if recent HCV exposure is suspected, a test for HCV RNA (test code 41056) is suggested. For additional information please refer to http://education.LiveHive/faq/DKX87p2 (This link is being provided for informational/ educational purposes only.) 03/04/2024 8:56 AM REJECTOR 03/04/2024 8:57 AM REJECTOR Narrative [facility] - 03/05/2024 5:37 AM REJECTOR FASTING:YES FASTING: YES Jose Guy MD LAB MICROBIOLOGY - GENERAL ORDERABLES Final Result [facility] [address] [place] [address] * Albumin Creatinine Ratio, Urine (03/04/2024 8:56 AM REJECTOR) Creatinine, ur 110 20 - 275 mg/dL [...] a diagnostic category. Urine 03/04/2024 8:56 AM REJECTOR 03/04/2024 8:57 AM REJECTOR Narrative [facility] - 03/05/2024 5:37 AM REJECTOR FASTING:YES FASTING: YES Jose Guy MD LAB URINE ORDERABLES Final Result Performing Organization Address [facility] Co de Phone Number Narr8[facility] [address] [place] [address] * TSH (03/04/2024 8:56 AM REJECTOR) Pathologist [facility] TSH 2.95 0.40 - 4.50 mIU/L [facility] Blood 03/04/2024 8:56 AM REJECTOR 03/04/2024 8:57 AM REJECTOR Narrative [facility] - 03/05/2024 5:37 AM REJECTOR FASTING:YES FASTING: YES Jsoe Guy MD LAB BLOOD ORDERABLES Final Result Performing Organization Address [facility] [[email or web address]] de Phone Number Narr8[facility] [address] [place] [address] * T4, free (03/04/2024 8:56 AM REJECTOR) Free T4 1.1 0.8 - 1.8 ng/dL [facility] Blood 03/04/2024 8:56 AM REJECTOR 03/04/2024 8:57 AM REJECTOR Narrative [facility] - 03/05/2024 5:37 AM REJECTOR FASTING:YES FASTING: YES Jose Guy MD LAB BLOOD ORDERABLES Final Result Performing Organization Address [facility] Co de Phone Number Narr8[facility] [address] [place] [address] * (ABNORMAL) Hemoglobin A1c (03/04/2024 8:56 AM REJECTOR) Pathologist [facility] Hgb A1C 7.6(H) <5.7 % of total Hgb Shaheen SpireonBrenda Goodson Comment: For someone without known diabetes, [...] for children. ?? Blood 03/04/2024 8:56 AM REJECTOR 03/04/2024 8:57 AM REJECTOR Narrative [facility] - 03/05/2024 5:37 AM REJECTOR FASTING:YES FASTING: YES Jose Guy MD LAB BLOOD ORDERABLES Final Result [facility] [address] [place] [address] * (ABNORMAL) Lipid panel (03/04/2024 8:56 AM REJECTOR) [facility] Cholesterol 95 <200 mg/dL Shaheen SpireonDenilson Goodson HDL 44(L) > OR = 50 mg/dL Shaheen SpireonDenilson Goodson Triglycerides 65 <150 mg/dL Shaheen SpireonDenilson Goodson LDL 37 mg/dL (calc) Shaheen SpireonBrenda Goodson Comment: Reference range: <100 Desirable range <100 mg/dL for primary prevention; ?? <70 mg/dL for patients with CHD or diabetic patients with > or = 2 CHD risk factors. LDL-C is now calculated using the Franco calculation, which is a validated novel method providing better accuracy than the Friedewald equation in the estimation of LDL-C. Raymond VALENZUELA et al. SIMA. 2013;310(19): 7592-7686 (http://education.BeeBillion.Machinio/faq/TQT229) Chol/HDL ratio 2.2 <5.0 (calc) [employer] Solutions[facility]ilson Goodson Non-HDL, (LDL+VLDL) 51 <130 mg/dL (calc) Shaheen GridstoreDenilson Goodson Comment: For patients with diabetes plus 1 major ASCVD risk factor, treating to a non-HDL-C goal of <100 mg/dL (LDL-C of <70 mg/dL) is considered a therapeutic option. Blood 03/04/2024 8:56 AM REJECTOR 03/04/2024 8:57 AM REJECTOR Narrative [facility] - 03/05/2024 5:37 AM REJECTOR FASTING:YES FASTING: YES us Jose Guy MD LAB BLOOD ORDERABLES Final Result [facility] [address] [place] [address] * (ABNORMAL) Comprehensive metabolic panel (03/04/2024 8:56 AM REJECTOR) Glucose 161(H) 65 - 99 mg/dL Shaheen GridstoreDenilson Goodson Comment: ? Fasting reference interval For someone without known diabetes, a glucose value >125 mg/dL indicates that they may have diabetes and this should be confirmed with a follow-up test. BUN 13 7 - 25 mg/dL [employer] SolutionsDenilson med [facility] Creatinine 0.66 0.50 - 1.05 mg/dL Shaheen Two[employer] med [facility]son eGFR 100 > OR = 60 mL/min/1.7 3m2 [employer] [facility]il[facility] BUN/creat ratio SEE NOTE: 6 - 22 (calc) Shaheen GridstoreDenilson Goodson Comment: ?? Not Reported: BUN and Creatinine are within ?? reference range. ? Sodium 138 135 - 146 mmol/L [employer] med [facility] Potassium, pl 4.0 3.5 - 5.3 mmol/L [employer]Denil[facility] Goodson Chloride 102 98 - 110 mmol/L [employer]Denilson Goodson CO2 28 20 - 32 mmol/L [facility] [facility] Calcium 9.3 8.6 - 10.4 mg/dL Shaheen GridstoreDenilson Goodson Protein, sr 7.4 6.1 - 8.1 g/dL [employer]Denil[facility] Goodson Albumin 4.3 3.6 - 5.1 g/dL [employer] [facility] GLOBULIN 3.1 1.9 - 3.7 g/dL (calc) [facility] Alb/glob ratio 1.4 1.0 - 2.5 (calc) [facility] Bilirubin, total 0.8 0.2 - 1.2 mg/dL Shaheen Armijo-Denilson Goodson Alk phos 76 37 - 153 U/L [facility] AST 16 10 - 35 U/L [facility] ALT (SGPT) 11 6 - 29 U/L [facility] Blood 03/04/2024 8:56 AM REJECTOR 03/04/2024 8:57 AM REJECTOR Narrative [facility] - 03/05/2024 5:37 AM REJECTOR FASTING:YES FASTING: YES Jose Guy MD LAB BLOOD ORDERABLES Final Result [facility]Pres[facility] Center[facility] [address] [place] [address] * SCAN - LABS (03/04/2024) Provider Scanning Final Result * Colonoscopy (02/27/2024 9:56 AM REJECTOR) Anatomical Region Laterality Modality Other Historical Provider ENDOSCOPY PROCEDURES Ayana l Result * Surgical pathology (01/27/2024 2:25 PM REJECTOR) Endocervix, Biopsy 01/27/2024 2:25 PM REJECTOR 01/28/2024 7:24 AM REJECTOR Narrative 01/29/2024 3:25 PM REJECTOR [facility] Department of Pathology [address] [place] [address] ?? Note to Patients: ??This report may [...] (Age: 58) Gender: ??F Address: ??[address], [place] [address] [facility] #: [id number] Service: DEFAULT Location: Patient Type: B SPECIMEN ? Taken: 01/27/2024 Received: 01/28/2024 Accessioned: [...] A1. Jar 0. ?? jjmhb/01/28/2024 10:56 HAYLEY Rose, PIA (ASCP) Microscopic slide review and interpretation for this case was performed at [facility], Department of Surgical Pathology, [address] [address] [place] [phone], ??[place], [place] ??[address] ?? CLIA # [id number] us Oral Lozano MD LAB PATHOLOGY ORDERABLES F inal Result * MS COLPOSCOPY CERVIX ENDOCERVICAL CURETTAGE (01/27/2024 10:00 AM REJECTOR) Narrative Oral Lozano MD - 01/27/2024 10:00 AM REJECTOR Oral Lozano MD ? 01/27/2024 11:12 AM Colposcopy with ECC Performed by: Oral Lozano MD Authorized by: Oral Lozano MD ??Consent given by: patient Pre-procedure: ??Prepped with: acetic acid and Lugol ?? 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, ASC-H and HPV Procedure: ??Procedure: Colposcopy w/ endocervical curettage ?[place] speculum was placed in the vagina: yes ?Under colposcopic examination the transition zone was seen in entirety: yes ?Endocervix was curetted using a Kevorkian curette: yes ??no Post-procedure: ??Findings: White epithelium ?Impression comment: ??At least SRIRAM 1 ??Patient tolerance of procedure: ??Patient tolerated the procedure well with no immediate complications us Oral Lozano MD IN CLINIC/BEDSIDE ORDERABL ES Final Result * (ABNORMAL) High Risk HPV DNA Detection with Genotyping (Molecular component) (12/13/2023 11:01 AM CDT) HPV HR 16 Not Detected Not Detected [facility] Comment:Testing performed by : [facility], [address] [facility], [place]., [address] HPV HR 18 Not Detected Not Detected KEENA CEVALLOS Comment:Testing performed by : [facility], [address] [place]., [address] HPV HR Non 16/18 Detected(A) Not Detected [...] this test have been verified by the [facility] Molecular Infectious Disease laboratory. Correlate with separately reported cytology results, as applicable. Interpretive data last revised 22 Testing performed by: [facility], [address] [place] [address] Endocervical 12/13/2023 11:0 1 AM CDT 12/16/2023 9:08 AM CDT Narrative [facility] - 12/16/2023 9:53 PM CDT Clinical history and diagnosis->screening Testing type->Screening Last menstrual period (date if known)->>5 years Menstrual status->Postmenopausal Previous negative PAP?->Yes Previous atypical cytology->ASCUS Eduarda Pop NP LAB BODY FLUIDS AND STOOLS OR DERABLES Final Result [place] [id number] [facility] Department [place] [address] [facility] * DIABETES EYE EXAM (09/30/2023 10:01 [...] age 38, based on guidelines of the [place] [employer] (ACR Practice Parameter for the Performance of Screening and Diagnostic Mammography) and [place] [employer]. For women [...] Most Recently Relevant to Health Maintenance Insurance [facility] OPEN ACCESS [id number] Care Teams Machining Associate Relationship Specialty Start Date End Date Jose Guy MD [address] [place] [address] PCP - General Internal Medicine 11/21/23
[2024-04-17] MEDS: oxyCODONE/ACETAMINOPHEN (*CRX) 10-325 MG TABLET 1 TAB PO ×2 (04:51→11:01)
[2024-04-17 05:45] VITALS: BP 128/67; PULSE 104; RESP 20; TEMP 36.9; O2SAT 93
[2024-04-17 07:29] LABS: Hematocrit 28.5 % (37.0-47.0); Hemoglobin 8.9 g/dL (12.0-15.0); Mean Corpuscular HGB Conc 31.2 g/dl (32-36); Mean Corpuscular Hemoglobin 30.3 pg (26-34); Mean Corpuscular Volume 96.9 fl (80-100); Platelet Count Result 234 k/mm3 (150-375); Red Blood Count 2.94 M/mm3 (4.2-5.4); Red Cell Distribution Width 14.1 % (11.5-14.5); White Blood Count 14.8 K/mm3 (4.5-10.0)
[2024-04-17 07:38] LABS: Anion Gap 7 mmol/L (4-12); Blood Urea Nitrogen 6 mg/dL (7-17); Calcium 8.6 mg/dL (8.4-10.2); Carbon Dioxide 29 mmol/L (22-30); Chloride 99 mmol/L (98-107); Estimated CRCL calculation 79 ml/min; Estimated Glomerular Filt Rate > 60; Glucose 143 mg/dL (65-110); Potassium 4.3 mmol/L (3.4-5.0); Sodium 135 mmol/L (137-145)
[2024-04-17 09:43] LABS: Glucose Point of Care 148 mg/dl (65-105)
[2024-04-17] MEDS: ROSUVASTATIN 20 MG TABLET PO (10:57)
[2024-04-17] MEDS: ALVIMOPAN 12 MG CAPSULE PO (10:57)
[2024-04-17] MEDS: ASPIRIN 81 MG ENTERIC TABLET PO (10:57)
[2024-04-17] MEDS: ENOXAPARIN 40 MG/0.4 ML SYRINGE SUB-Q (10:57)
[2024-04-17] MEDS: metFORMIN HCL 500 MG TABLET 1000 MG PO (10:58)
--- NOTE | 2024-04-17 11:51 | P.DS_ITS ---
DS: Admitting Diagnosis Discharge Date 04/17/2024 Admitting Diagnosis * Ascending colon cancer * Dsf-jmbpgxz-ulocfrpau diabetes DS: Discharge Diagnosis Discharge Diagnosis (1) Cancer of ascending colon: Code(s): C18.2 - Malignant neoplasm of ascending colon Status: Chronic Assessment and Plan: Patient underwent hand access laparoscopic right colectomy with hand-sewn ileo transverse anastomosis on 04/15/[address] Landry. (2) Diabetes type 2, controlled: Qualifiers: Diabetes mellitus alf insulin use: without alf use Diabetes mellitus complication status: without complication Qualified Code(s): E11.9 - Type 2 diabetes mellitus without complications Code(s): E11.9 - Type 2 diabetes mellitus without complications Status: Chronic DS: Summary Hospital Course Hospital Course: Patient is a 58-year-old woman who had outpatient colonoscopy. This showed an ascending colon mass. Biopsy showed this to be adenocarcinoma. She had an outpatient CT scan with IV contrast which showed no evidence of metastatic disease. She also had a CEA level which was normal. After discussion in the office and preparation for surgery, the patient was taken to the operating room on 04/15/2024. Hand access laparoscopic right colectomy was performed. No sign of metastatic lesions was noted intraoperatively. Pathology is pending at the time of this dictation. Patient was on clear liquids the day of surgery. She was observed and advanced to a low fiber diet on hospital day 1. Or postop day 1. She tolerated this well and was ambulating independently. She was not having any nausea or emesis. She was having bowel movements. She was only taking oral analgesics for pain. She did have some leukocytosis on her CBC both postop day 1. And 2. This will be repeated as an outpatient in 3 days. She is discharged at this time in good condition. Status at Discharge Functional status at discharge: independent ambulation Overall status at discharge: patient is progressing back to baseline Time Spent with Patient Time attestation: Total time spent providing and/or coordinating discharge services: Time spent: Less than 30 minutes DS: Data Data Completed and Pending Pending studies at discharge: Pending at discharge 04/15/24 10:34 Surgical [PTH] Routine Labs on day of discharge: Labs from last 24 hours 04/17/24 04/17/24 04/16/24 08:14 07:11 20:40 WBC 14.8 H RBC 2.94 L Hgb 8.9 L Hct 28.5 L MCV 96.9 MCH 30.3 MCHC 31.2 L RDW 14.1 Plt Count 234 MPV 10.0 Sodium 135 L Potassium 4.3 Chloride 99 Carbon Dioxide 29 Anion Gap 7 BUN 6 L Creatinine 0.55 L Estim Creat Clear Calc 79 Estimated GFR > 60 Glucose 143 H POC Capillary Glucose 148 H 138 H Calcium 8.6 04/16/24 16:33 WBC RBC Hgb Hct MCV MCH MCHC RDW Plt Count MPV Sodium Potassium Chloride Carbon Dioxide Anion Gap BUN Creatinine Estim Creat Clear Calc Estimated GFR Glucose POC Capillary Glucose 177 H Calcium Discharge Plan Discharge Attending physician on discharge: Francisco Landry Discharging Clinician: Francisco Landry Anticipated Discharge Date/Time: 04/17/24 11:56 Patient Disposition: Home, Self-Care Activity: may shower, no straining and as tolerated Diet: regular and diabetic Wound Care Instructions: incision open to air Discharge Instructions: * Ambulate 3-4 x per day and as tolerated. * No lifting over 15-20lbs. * May bathe or shower. * Stairs are OK. * May drive a car in 3 days. * Call Dr. Jacobson office and make appointment to be seen in approximately 2 weeks * Call Dr. Landry for severe abdominal pain, vomiting, temp over 100.5, wound bleeding, other significant change in condition. * Prescription for Percocet has been sent to your pharmacy. May also take [id number] Tylenol or Advil as needed for pain Patient Instructions: Antibiotic Form Patient Language: Georgian Stand Alone Forms: General Discharge Information Follow-up/Referrals: Francisco Landry MD [Physician] - 2 Weeks (Call Dr. Jacobson office Saturday to make appointment) Discharge Medications: New oxycodone-acetaminophen [Percocet] 5-325 mg tablet 0.5 - 1 tablet PO Q4H PRN (Reason: pain) Qty: 15 0RF Continued Adult Low Dose Aspirin 81 mg Tablet 81 mg PO DAILY metformin 500 mg Tablet 1,000 mg PO BID rosuvastatin 20 mg Tablet 20 mg PO DAILY Discontinued ciprofloxacin HCl 500 mg tablet 500 mg PO .COMPLEX Qty: 1 0RF Rx Instructions: 500 mg orally at 2:00pm the day before surgery; metronidazole 500 mg tablet 500 mg PO .COMPLEX Qty: 3 0RF Rx Instructions: 500 mg orally at 1:00pm, 2:00pm, and 11:00pm the day before surgery; Other Ambulatory Orders: Complete Blood Count no Diff (Routine) Timeframe: 20240420 Location: Determined by Patient Ordered By: Francisco Landry Date of admission: 04/15/24 13:36 Primary Care Provider: Malena,Jose Bassett Admitting Provider: Francisco Landry Attending physician on admission: Francisco Landry Condition: Improved
[2024-04-17 11:54] LABS: Glucose Point of Care 198 mg/dl (65-105)
== END 2024-04-17 14:00 | disposition home or self-care (01) | DRG 331 ==
LOC: ANH3MEDSUR 13:43
PROVIDERS: Admitting Provider Surgery; PCP Internal Medicine; Visit Provider Surgery
PROC: 0DTF4ZZ Resection of Right Large Intestine, Percutaneous Endoscopic Approach (ICD-10-PCS; CPT 44204; principal; 2024-04-15 09:30)
DX: C18.2 Malignant neoplasm of ascending colon (principal); E11.9 Type 2 diabetes mellitus without complications; E78.5 Hyperlipidemia, unspecified; Z79.82 Long term (current) use of aspirin
CPT/HCPCS: 36415; 80048; 82948; 85027; 88309; A9270; J0690; J1100; J1171; J1650; J1815; J1836; J1885; J2003; J2250; J2270; J2405; J2704; J3010; J7120

== ENCOUNTER 2024-05-11 16:52 | Outpatient (CLI) | payer OTHER, SELFPAY ==
[2024-05-11 17:12] LABS: Basophils Percent Auto 0.3 % (0.2-1.2); Eosinophils Absolute Auto 0.3 K/mm3 (0-0.3); Eosinophils Percent Auto 3.7 % (0-4.4); Hematocrit 32.5 % (37.0-47.0); Hemoglobin 10.3 g/dL (12.0-15.0); Immature Granulocyte Absolute 0.02 K/mm3 (0.00-0.031); Immature Granulocyte Percent A 0.2 % (0-0.5); Lymphocytes Absolute Auto 2.78 K/mm3 (0.9-3.2); Lymphocytes Percent Auto 30.5 % (18.3-44.2); Mean Corpuscular HGB Conc 31.7 g/dl (32-36); Mean Corpuscular Hemoglobin 29.2 pg (26-34); Mean Corpuscular Volume 92.1 fl (80-100); Monocytes Absolute Auto 0.8 K/mm3 (0.1-0.6); Monocytes Percent Auto 8.7 % (2.6-8.5); Neutrophils Absolute Auto 5.2 K/mm3 (1.3-6.7); Neutrophils Percent Auto 56.6 % (45.5-73.1); Platelet Count Result 273 k/mm3 (150-375); Red Blood Count 3.53 M/mm3 (4.2-5.4); Red Cell Distribution Width 13.6 % (11.5-14.5); White Blood Count 9.1 K/mm3 (4.5-10.0)
[2024-05-11 17:22] LABS: Alanine Aminotransferase 18 U/L (6-35); Albumin Level 4.5 g/dL (3.5-5.1); Alkaline Phosphatase 96 U/L (38-126); Anion Gap 10 mmol/L (4-12); Aspartate Amino Transferase 27 U/L (14-36); Blood Urea Nitrogen 9 mg/dL (7-17); Calcium 9.8 mg/dL (8.4-10.2); Carbon Dioxide 30 mmol/L (22-30); Chloride 100 mmol/L (98-107); Estimated Glomerular Filt Rate > 60; Glucose 190 mg/dL (65-110); Potassium 4.8 mmol/L (3.4-5.0); Sodium 140 mmol/L (137-145)
[2024-05-11 17:52] LABS: Carcinoembryonic Antigen 2.9 ng/mL (0.0-3.0)
[2024-05-11 18:31] LABS: Iron 57 ug/dL (37-170)
--- OUTSIDE RECORDS SUMMARY | 2024-05-11 18:37 | XMS_ITS | Clinical Summary ---
Author Organization [facility] [address] Address [address] [place] [phone] Care Team Providers Care Car Carder Name Role Phone Jose Guy MD Primary Care Provider [phone] Allergies No known active allergies Medications lancets [...] 04/13/2024 Assessment & Plan (04/13/2024 2:56 PM WASHER AND CRUSHER TENDER): Patient had colonoscopy in February 2023 that showed malignant tumor in the ascending colon. She is scheduled for resection in couple of days. Advised to hold aspirin. Abnormal Papanicolaou smear of cervix with positive human papilloma virus (HPV) test 01/27/2024 Overview (04/13/2024): Managed by the sourcing assistant Assessment & Plan (04/13/2024 2:58 PM WASHER AND CRUSHER TENDER): Managed by the sourcing assistant Encounter for well woman carito arechiga with routine gynecological exam 12/12/2023 Assessment & Plan (12/12/2023 10:40 AM CDT): Pap smear with HPV cotesting completed. Order for mammogram. We will notify the patient of all results. Follow up in one year or sooner if needed. Patient verbalizes understanding regarding plan of care and all questions answered. Dyslipidemia 11/21/2023 Assessment & Plan (04/13/2024 7:56 AM WASHER AND CRUSHER TENDER): LDL is 37. Continue Crestor and low-fat diet Assessment & Plan (11/21/2023 2:43 PM CDT): Patient with history of hyperlipidemia. She is not on medications. Discussed low-fat diet. Discussed exercise on regular basis. Pamphlets were given. Uncontrolled diabetes mellitus with hyperglycemi a 05/31/2023 Assessment & Plan (04/13/2024 2:57 PM WASHER AND CRUSHER TENDER): Hemoglobin A1c 7.6. Metformin was increased to [...] Type Department Care Team Description 04/15/2024 Telephone [facility] [address] [place] [phone] Jose Guy MD 04/13/2024 2:15 PM WASHER AND CRUSHER TENDER Office Visit [facility] [address] [place] [phone] Jose Guy MD Dyslipidemia (Primary Dx); Gastroesophageal reflux disease without esophagitis; BMI 27.0-27.9,adult; Diabetes mellitus due to underlying condition, uncontrolled, with hyperglycemia (HCC); Malignant neoplasm of ascending colon (CMS/HCC) (HCC); Abnormal Papanicolaou smear of cervix with positive human papilloma virus (HPV) test 03/06/2024 Orders Only [facility] [address] [place] [phone] ProviderDyan MD 03/05/2024 Telephone [facility] [address] [place] [phone] Jose Guy MD 03/04/2024 Orders Only [facility] Health Information Management [address] [place] [id number] Scanning, Provider from Last 3 Months Immunizations Immunization Administration Dates Next Due Influenza, Quadrivalent, Marian [...] Comments Blood Pressure 112/64 04/13/2024 2:36 PM WASHER AND CRUSHER TENDER Pulse 100 04/13/2024 2:36 PM WASHER AND CRUSHER TENDER Temperature 36.2 C (97.2 F) 04/13/2024 2:36 PM WASHER AND CRUSHER TENDER Respiratory Rate 16 04/13/2024 2:36 PM WASHER AND CRUSHER TENDER Oxygen Saturation 98% 04/13/2024 2:36 PM WASHER AND CRUSHER TENDER Inhaled Oxygen Concentration - - Weight 71.7 kg (158 lb) 04/13/2024 2:36 PM WASHER AND CRUSHER TENDER Height 162.6 cm (5' 4 ) 04/13/2024 2:36 PM WASHER AND CRUSHER TENDER Body Mass Index 27.12 04/13/2024 2:36 PM WASHER AND CRUSHER TENDER Plan of Treatment Health Maintenance Due Date Last Done Comments Hepatitis B Screening 11/27/1981 Pneumococcal vaccine <65 (1 of 2 - PCV) 11/27/1982 Zoster Vaccine (1 of 2) 11/27/2013 Covid-19 Vaccine (3 - 2023-2 5 season) 2023 08/16/2020, 07/26/2020 Influenza Vaccine (#1) 2023 3, 01/07/2019, 03/13/2018, Additional history exists Foot Exam 05/22/2024 05/22/2023 Breast Cancer Screening-Mammogram 08/06/2024 024 Hemoglobin A1C 09/02/2024 03/04/2024, 08/23, 05/14/2023, Additional history exists Dilated Eye Exam [...] Diagnosis Comments TSH Routine 03/04/2024 8:56 AM WASHER AND CRUSHER TENDER Thyroid disorder screen T4, FREE Routine 03/04/2024 8:56 AM WASHER AND CRUSHER TENDER Thyroid disorder screen ALBUMIN CREATININE RATIO, URINE Routine 03/04/2024 8:56 AM WASHER AND CRUSHER TENDER Uncontrolled diabetes mellitus with hyperglycemia (HCC) HEMOGLOBIN A1C Routine 03/04/2024 8:56 AM WASHER AND CRUSHER TENDER Uncontrolled diabetes mellitus with hyperglycemia (HCC) LIPID PANEL Routine 03/04/2024 8:56 AM WASHER AND CRUSHER TENDER Uncontrolled diabetes mellitus with hyperglycemia (HCC) Dyslipidemia COMPREHENSIVE METABOLIC PANEL Routine 03/04/2024 8:56 AM WASHER AND CRUSHER TENDER Uncontrolled diabetes mellitus with hyperglycemia (HCC) HEPATITIS C ANTIBODY Routine 03/04/2024 8:56 AM WASHER AND CRUSHER TENDER SCAN - LABS 03/04/2024 COLONOSCOPY Routine 02/27/2024 9:56 AM WASHER AND CRUSHER TENDER HIGH RISK HPV DNA DETECTION WITH GENOTYPING Routine 12/13/2023 11:01 AM CDT Cervical cancer screening HM DIABETES EYE EXAM Routine 09/30/2023 10:01 AM CDT SCREENING MAMMOGRAM BILATERAL [facility] Schedule Routine, Read Routine (OP Routine) 08/07/2023 1:17 PM CDT Screening mammogram for breast cancer from Last 3 Months or Most Recently Relevant to Health Maintenance Results * Hepatitis C antibody (03/04/2024 8:56 AM WASHER AND CRUSHER TENDER) Hep C Ab NON-REACTI VE NON-REACT [facility] Comment: HCV antibody was non-reactive. There is no laboratory evidence of HCV infection. In most cases, no further action is required. However, if recent HCV exposure is suspected, a test for HCV RNA (test code 40715) is suggested. For additional information please refer to http://education.[employer]/faq/MWM85t8 (This link is being provided for informational/ educational purposes only.) 03/04/2024 8:56 AM WASHER AND CRUSHER TENDER 03/04/2024 8:57 AM WASHER AND CRUSHER TENDER Narrative [facility] - 03/05/2024 5:37 AM WASHER AND CRUSHER TENDER FASTING:YES FASTING: YES Jose Guy MD LAB MICROBIOLOGY - GENERAL ORDERABLES Final Result [facility] [address] [place] [address] * Albumin Creatinine Ratio, Urine (03/04/2024 8:56 AM WASHER AND CRUSHER TENDER) [facility] Creatinine, ur 110 20 - 275 mg/dL [facility] Microalbumin, ur 0.6 See Note: mg/dL [facility] Comment: Reference Range: Reference Range Not established Microalbumin/creat ratio 5 <30 mg/g creat [facility] Comment: The ADA defines abnormalities in albumin excretion as follows: Albuminuria Category Result (mg/g creatinine) Normal to Mildly increased <30 Moderately increased 30-299 Severely increased > OR = 300 The ADA recommends that at least two of three specimens collected within a 3-6 month period be abnormal before considering a patient to be within a diagnostic category. Urine 03/04/2024 8:56 AM WASHER AND CRUSHER TENDER 03/04/2024 8:57 AM WASHER AND CRUSHER TENDER Narrative [facility] - 03/05/2024 5:37 AM WASHER AND CRUSHER TENDER FASTING:YES FASTING: YES Jose Guy MD LAB URINE ORDERABLES Final Result [facility] [address] [place] [address] * TSH (03/04/2024 8:56 AM WASHER AND CRUSHER TENDER) [facility] TSH 2.95 0.40 - 4.50 mIU/L [facility] Blood 03/04/2024 8:56 AM WASHER AND CRUSHER TENDER 03/04/2024 8:57 AM WASHER AND CRUSHER TENDER Narrative [facility] - 03/05/2024 5:37 AM WASHER AND CRUSHER TENDER FASTING:YES FASTING: YES Jose Guy MD LAB BLOOD ORDERABLES Final Result [facility] [address] [place] [phone] * T4, free (03/04/2024 8:56 AM WASHER AND CRUSHER TENDER) [facility] Free T4 1.1 0.8 - 1.8 ng/dL [facility] Blood 03/04/2024 8:56 AM WASHER AND CRUSHER TENDER 03/04/2024 8:57 AM WASHER AND CRUSHER TENDER Narrative [facility] - 03/05/2024 5:37 AM WASHER AND CRUSHER TENDER FASTING:YES FASTING: YES Jose Guy MD LAB BLOOD ORDERABLES Final Result Performing Organization Address [facility] Co de Phone Number [facility] [address] [place] [address] * (ABNORMAL) Hemoglobin A1c (03/04/2024 8:56 AM WASHER AND CRUSHER TENDER) Hgb A1C 7.6(H) <5.7 % of total Hgb [facility] Comment: For someone without known diabetes, [...] A1c for diagnosis of diabetes for children. Blood 03/04/2024 8:56 AM WASHER AND CRUSHER TENDER 03/04/2024 8:57 AM WASHER AND CRUSHER TENDER Narrative [facility] - 03/05/2024 5:37 AM WASHER AND CRUSHER TENDER FASTING:YES FASTING: YES Jose Guy MD LAB BLOOD ORDERABLES Final Result Performing Organization Address [facility] Co de Phone Number [facility] [address] [place] [address] * (ABNORMAL) Lipid panel (03/04/2024 8:56 AM WASHER AND CRUSHER TENDER) Cholesterol 95 <200 mg/dL [facility] HDL 44(L) > OR = 50 mg/dL [facility] Triglycerides 65 <150 mg/dL [facility] LDL 37 mg/dL (calc) [facility] Comment: Reference range: <100 Desirable range <100 mg/dL for primary prevention; <70 mg/dL for patients with CHD or diabetic patients with > or = 2 CHD risk factors. LDL-C is now calculated using the Franco calculation, which is a validated novel method providing better accuracy than the Friedewald equation in the estimation of LDL-C. Raymond VALENZUELA et al. SIMA. 2013;310(19): 5277-3675 (http://education.[employer]/faq/FCR493) Chol/HDL ratio 2.2 <5.0 (calc) [facility] Non-HDL, (LDL+VLDL) 51 <130 mg/dL (calc) [facility] Comment: For patients with diabetes plus 1 major ASCVD risk factor, treating to a non-HDL-C goal of <100 mg/dL (LDL-C of <70 mg/dL) is considered a therapeutic option. Blood 03/04/2024 8:56 AM WASHER AND CRUSHER TENDER 03/04/2024 8:57 AM WASHER AND CRUSHER TENDER Narrative [facility] - 03/05/2024 5:37 AM WASHER AND CRUSHER TENDER FASTING:YES FASTING: YES us Jose Guy MD LAB BLOOD ORDERABLES Final Result [facility] [address] [place] [address] * (ABNORMAL) Comprehensive metabolic panel (03/04/2024 8:56 AM WASHER AND CRUSHER TENDER) Glucose 161(H) 65 - 99 mg/dL [facility] Comment: Fasting reference interval For someone without known diabetes, a glucose value >125 mg/dL indicates that they may have diabetes and this should be confirmed with a follow-up test. BUN 13 7 - 25 mg/dL [facility] Creatinine 0.66 0.50 - 1.05 mg/dL [facility] eGFR 100 > OR = 60 mL/min/1.7 3m2 [facility] BUN/creat ratio SEE NOTE: 6 - 22 (calc) [facility] Comment: Not Reported: BUN and Creatinine are within reference range. Sodium 138 135 - 146 mmol/L [facility] Potassium, pl 4.0 3.5 - 5.3 mmol/L [facility] Chloride 102 98 - 110 mmol/L [facility] CO2 28 20 - 32 mmol/L [facility] Calcium 9.3 8.6 - 10.4 mg/dL [facility] Protein, sr 7.4 6.1 - 8.1 g/dL [facility] Albumin 4.3 3.6 - 5.1 g/dL [facility] GLOBULIN 3.1 1.9 - 3.7 g/dL (calc) [facility] Alb/glob ratio 1.4 1.0 - 2.5 (calc) [facility] Bilirubin, total 0.8 0.2 - 1.2 mg/dL [facility] Alk phos 76 37 - 153 U/L [facility] AST 16 10 - 35 U/L [facility] ALT (SGPT) 11 6 - 29 U/L [facility] Blood 03/04/2024 8:56 AM WASHER AND CRUSHER TENDER 03/04/2024 8:57 AM WASHER AND CRUSHER TENDER Narrative [facility] - 03/05/2024 5:37 AM WASHER AND CRUSHER TENDER FASTING:YES FASTING: YES Result [facility] Jose Guy MD LAB BLOOD ORDERABLES Final Result Performing Organization Address City/State/[facility] Co de Phone Number [facility] [address] [place] [address] * SCAN - LABS (03/04/2024) Provider Scanning Final Result * Colonoscopy (02/27/2024 9:56 AM WASHER AND CRUSHER TENDER) Anatomical Region Laterality Modality Other Historical Provider ENDOSCOPY PROCEDURES Ayana tijerina Result * (ABNORMAL) High Risk HPV DNA Detection with Genotyping (Molecular component) (12/13/2023 11:01 AM CDT) HPV HR 16 Not Detected Not Detected [facility] Comment:Testing performed by : [facility], [address] [place]., [address] HPV HR 18 Not Detected Not Detected KEENA CEVALLOS Comment:Testing performed by : [facility], [address] [place] [address]., [id number] HPV HR Non 16/18 Detected(A) Not Detected KEENA CEVALLOS Comment: Interpretive Data Nucleic acid amplification for detection of high-risk Human Papilloma virus (HPV) is performed by the Chele Tiana 6800 HPV test. This assay specifically detects HPV-16 and HPV-18 genotypes. The following HPV genotypes are detected as high-risk HPV: HPV-31, 33, 35, ,39, 45, 51, 52, 56, 58, 59, 66, and 68. This assay has been approved by the [place] Food and Drug Administration for detection of HPV in cervical specimens collected by a physician using an endocervical brush/spatula or cervical broom and placed in the ThinPrep Pap Test PreservCyt collection containers. The performance characteristics of this test have been verified by the [facility] Molecular Infectious Disease laboratory. Correlate with separately reported cytology results, as applicable. Interpretive data last revised 22 Testing performed by: [facility], [address] [place]., [address] Endocervical 12/13/2023 11:0 1 AM CDT 12/16/2023 9:08 AM CDT Narrative KEENA CEVALLOS - 12/16/2023 9:53 PM CDT Clinical history and diagnosis->screening Testing type->Screening Last menstrual period (date if known)->>5 years Menstrual status->Postmenopausal Previous negative PAP?->Yes Previous atypical cytology->ASCUS Eduarda Pop NP LAB BODY FLUIDS AND STOOLS OR DERABLES Final Result KEENA CEVALLOS [address] [facility] Department [place] [address] [facility] * DIABETES EYE EXAM (09/30/2023 10:01 AM CDT) SCRIBED DIABETIC DILATED EYE EXAM Normal Historical Provider HEALTH MAINTENANCE Final Result * Screening Mammogram Bilateral [place] (08/07/2023 1:17 PM CDT) Anatomical Region Laterality Modality Breast Bilateral Mammography Impressions 08/07/2023 1:57 PM CDT BI-RADS ATLAS category (overall): 2 - Benign There is no mammographic evidence of malignancy. A 1 year screening mammogram is recommended. The patient has been or will be contacted. We recommend annual screening mammography for women at average risk of breast cancer beginning at age 40, based on guidelines of the [employer] (ACR Practice Parameter for the Performance of Screening and Diagnostic Mammography) and [employer]. For women [...] in the CC and MLO projections. CLINICAL: Screening mammogram for breast cancer. No relevant medical history has been documented for this patient. History of breast cancer in Mother, Sister. COMPARISON: New Baseline Screening Mammography. No prior mammography is [...] suspicious findings are seen within either breast. us Katlyn Evans MD IMG MAMMO PROCEDURES Final R esult from Last 3 Months or Most Recently Relevant to Health Maintenance Insurance [facility] OPEN ACCESS [employer]IG[employer] OPEN ACCESS CIG[employer] OPEN ACCESS Care Teams Car Carder Relationship Specialty Start Date End Date Jose Guy MD [address] [place] [address] PCP - General Internal Medicine 11/21/23
--- OUTSIDE RECORDS SUMMARY | 2024-05-11 18:37 | XMS_ITS | Referral Summary ---
Author Organization [facility] [place] [facility] Address [address] [place] [phone] Care Team Providers Care Roller Coaster Operator Name Role Phone Jose Guy MD Primary Care Provider [phone] Encounters Date Type Department Care Team Description 04/15/2024 Telephone [facility] Internal Medicine [address] [place] [phone] Jose Guy MD 04/13/2024 2:15 PM PHOTOGRAPHY SALES ASSOCIATE Office Visit [facility] Internal Medicine [address] [place] [phone] Jose Guy MD Dyslipidemia (Primary Dx); Gastroesophageal reflux disease without esophagitis; BMI 27.0-27.9,adult; Diabetes mellitus due to underlying condition, uncontrolled, with hyperglycemia (HCC); Malignant neoplasm of ascending colon (CMS/HCC) (HCC); Abnormal Papanicolaou smear of cervix with positive human papilloma virus (HPV) test 03/06/2024 Orders Only [facility] Internal Medicine [address] [place] [phone] ProviderDyan MD 03/05/2024 Telephone [facility] Internal Medicine [address] [place] [phone] Jose Guy MD 03/04/2024 Orders Only [facility] Health Information Management [address] [place] [phone] Scanning, Provider from Last 3 Months Allergies No known [...] 2 (two) times a day 30 tablet 04/13/19 25 Discontinu ed(Therapy completed) Active Problems Problem Noted Date Diagnosed Date Malignant neoplasm of ascending colon (CMS/HCC) 04/13/2024 Assessment & Plan (04/13/2024 2:56 PM PHOTOGRAPHY SALES ASSOCIATE): Patient had colonoscopy in February 2023 that showed malignant tumor in the ascending colon. She is scheduled for resection in couple of days. Advised to hold aspirin. Abnormal Papanicolaou smear of cervix with positive human papilloma virus (HPV) test 01/27/2024 Overview (04/13/2024): Managed by the tanbark laborer Assessment & Plan (04/13/2024 2:58 PM PHOTOGRAPHY SALES ASSOCIATE): Managed by the tanbark laborer Encounter for well woman carito arechiga with routine gynecological exam 12/12/2023 Assessment & Plan (12/12/2023 10:40 AM CDT): Pap smear with HPV cotesting completed. Order for mammogram. We will notify the patient of all results. Follow up in one year or sooner if needed. Patient verbalizes understanding regarding plan of care and all questions answered. Dyslipidemia 11/21/2023 Assessment & Plan (04/13/2024 7:56 AM PHOTOGRAPHY SALES ASSOCIATE): LDL is 37. Continue Crestor and low-fat diet Assessment & Plan (11/21/2023 2:43 PM CDT): Patient with history of hyperlipidemia. She is not on medications. Discussed low-fat diet. Discussed exercise on regular basis. Pamphlets were given. Uncontrolled diabetes mellitus with hyperglycemi a 05/31/2023 Assessment & Plan (04/13/2024 2:57 PM PHOTOGRAPHY SALES ASSOCIATE): Hemoglobin A1c 7.6. Metformin was increased to [...] reflux disease without esophagi tis 01/24/2023 Immunizations Immunization Administration Dates Next Due Influenza, [...] Comments Blood Pressure 112/64 04/13/2024 2:36 PM PHOTOGRAPHY SALES ASSOCIATE Pulse 100 04/13/2024 2:36 PM PHOTOGRAPHY SALES ASSOCIATE Temperature 36.2 C (97.2 F) 04/13/2024 2:36 PM PHOTOGRAPHY SALES ASSOCIATE Respiratory Rate 16 04/13/2024 2:36 PM PHOTOGRAPHY SALES ASSOCIATE Oxygen Saturation 98% 04/13/2024 2:36 PM PHOTOGRAPHY SALES ASSOCIATE Inhaled Oxygen Concentration - - Weight 71.7 kg (158 lb) 04/13/2024 2:36 PM PHOTOGRAPHY SALES ASSOCIATE Height 162.6 cm (5' 4 ) 04/13/2024 2:36 PM PHOTOGRAPHY SALES ASSOCIATE Body Mass Index 27.12 04/13/2024 2:36 PM PHOTOGRAPHY SALES ASSOCIATE Plan of Treatment Not on file Procedures Procedure Name Priority Date/Time Associated Diagnosis Comments TSH Routine 03/04/2024 8:56 AM PHOTOGRAPHY SALES ASSOCIATE Thyroid disorder screen T4, FREE Routine 03/04/2024 8:56 AM PHOTOGRAPHY SALES ASSOCIATE Thyroid disorder screen ALBUMIN CREATININE RATIO, URINE Routine 03/04/2024 8:56 AM PHOTOGRAPHY SALES ASSOCIATE Uncontrolled diabetes mellitus with hyperglycemia (HCC) HEMOGLOBIN A1C Routine 03/04/2024 8:56 AM PHOTOGRAPHY SALES ASSOCIATE Uncontrolled diabetes mellitus with hyperglycemia (HCC) LIPID PANEL Routine 03/04/2024 8:56 AM PHOTOGRAPHY SALES ASSOCIATE Uncontrolled diabetes mellitus with hyperglycemia (HCC) Dyslipidemia COMPREHENSIVE METABOLIC PANEL Routine 03/04/2024 8:56 AM PHOTOGRAPHY SALES ASSOCIATE Uncontrolled diabetes mellitus with hyperglycemia (HCC) HEPATITIS C ANTIBODY Routine 03/04/2024 8:56 AM PHOTOGRAPHY SALES ASSOCIATE SCAN - LABS 03/04/2024 COLONOSCOPY Routine 02/27/2024 9:56 AM PHOTOGRAPHY SALES ASSOCIATE HIGH RISK HPV DNA DETECTION WITH GENOTYPING Routine 12/13/2023 11:01 AM CDT Cervical cancer screening HM DIABETES EYE EXAM Routine 09/30/2023 10:01 AM CDT SCREENING MAMMOGRAM BILATERAL W RIVER Schedule Routine, Read Routine (OP Routine) 08/07/2023 1:17 PM CDT Screening mammogram for breast cancer from Last 3 Months or Most Recently Relevant to Health Maintenance Results * Hepatitis C antibody (03/04/2024 8:56 AM PHOTOGRAPHY SALES ASSOCIATE) Hep C Ab NON-REACTI VE NON-REACT PANKAJ [facility] Comment: HCV antibody was non-reactive. There is no laboratory evidence of HCV infection. In most cases, no further action is required. However, if recent HCV exposure is suspected, a test for HCV RNA (test code 82418) is suggested. For additional information please refer to http://education.Exara.BookingBug/faq/YZZ76x4 (This link is being provided for informational/ educational purposes only.) 03/04/2024 8:56 AM PHOTOGRAPHY SALES ASSOCIATE 03/04/2024 8:57 AM PHOTOGRAPHY SALES ASSOCIATE Narrative [facility] - 03/05/2024 5:37 AM PHOTOGRAPHY SALES ASSOCIATE FASTING:YES FASTING: YES us Jose Guy MD LAB MICROBIOLOGY - GENERAL ORDERABLES Final Result [facility] [address] [address] [phone] * Albumin Creatinine Ratio, Urine (03/04/2024 8:56 AM PHOTOGRAPHY SALES ASSOCIATE) Creatinine, ur 110 20 - 275 mg/dL [...] a diagnostic category. Urine 03/04/2024 8:56 AM PHOTOGRAPHY SALES ASSOCIATE 03/04/2024 8:57 AM PHOTOGRAPHY SALES ASSOCIATE Narrative [facility] - 03/05/2024 5:37 AM PHOTOGRAPHY SALES ASSOCIATE FASTING:YES FASTING: YES Jose Guy MD LAB URINE ORDERABLES Final Result [facility] [address] [place] [address] * TSH (03/04/2024 8:56 AM PHOTOGRAPHY SALES ASSOCIATE) Pathologist [facility] TSH 2.95 0.40 - 4.50 mIU/L [facility] Blood 03/04/2024 8:56 AM PHOTOGRAPHY SALES ASSOCIATE 03/04/2024 8:57 AM PHOTOGRAPHY SALES ASSOCIATE Narrative [facility] - 03/05/2024 5:37 AM PHOTOGRAPHY SALES ASSOCIATE FASTING:YES FASTING: YES Jose Guy MD LAB BLOOD ORDERABLES Final Result [facility] [address] [place] [address] * T4, free (03/04/2024 8:56 AM PHOTOGRAPHY SALES ASSOCIATE) Pathologist [facility] Free T4 1.1 0.8 - 1.8 ng/dL [facility] Blood 03/04/2024 8:56 AM PHOTOGRAPHY SALES ASSOCIATE 03/04/2024 8:57 AM PHOTOGRAPHY SALES ASSOCIATE Narrative [facility] - 03/05/2024 5:37 AM PHOTOGRAPHY SALES ASSOCIATE FASTING:YES FASTING: YES Jose Guy MD LAB BLOOD ORDERABLES Final Result Performing Organization Address [facility] Co de Phone Number [facility] [address] [place] [address] * (ABNORMAL) Hemoglobin A1c (03/04/2024 8:56 AM PHOTOGRAPHY SALES ASSOCIATE) Hgb A1C 7.6(H) <5.7 % of total Hgb [facility] Comment: For someone without known diabetes, [...] diabetes for children. Blood 03/04/2024 8:56 AM PHOTOGRAPHY SALES ASSOCIATE 03/04/2024 8:57 AM PHOTOGRAPHY SALES ASSOCIATE Narrative [facility] - 03/05/2024 5:37 AM PHOTOGRAPHY SALES ASSOCIATE FASTING:YES FASTING: YES Jose Guy MD LAB BLOOD ORDERABLES Final Result Performing Organization Address [facility] Co de Phone Number [facility] [address] [place] [address] * (ABNORMAL) Lipid panel (03/04/2024 8:56 AM PHOTOGRAPHY SALES ASSOCIATE) Cholesterol 95 <200 mg/dL [facility] HDL 44(L) > OR = 50 mg/dL [facility] Triglycerides 65 <150 mg/dL [facility] LDL 37 mg/dL (calc) [facility] Comment: Reference range: <100 Desirable range <100 mg/dL for primary prevention; <70 mg/dL for patients with CHD or diabetic patients with > or = 2 CHD risk factors. LDL-C is now calculated using the Franco calculation, which is a validated novel method providing better accuracy than the Friedewald equation in the estimation of LDL-C. Raymond VALENZUELA et al. SIMA. 2013;310(19): 0222-2653 (http://education.Affinity Systems/faq/VGL276) Chol/HDL ratio 2.2 <5.0 (calc) [facility] Non-HDL, (LDL+VLDL) 51 <130 mg/dL (calc) [facility] Comment: For patients with diabetes plus 1 major ASCVD risk factor, treating to a non-HDL-C goal of <100 mg/dL (LDL-C of <70 mg/dL) is considered a therapeutic option. Blood 03/04/2024 8:56 AM PHOTOGRAPHY SALES ASSOCIATE 03/04/2024 8:57 AM PHOTOGRAPHY SALES ASSOCIATE Narrative [facility] - 03/05/2024 5:37 AM PHOTOGRAPHY SALES ASSOCIATE FASTING:YES FASTING: YES Jose Guy MD LAB BLOOD ORDERABLES Final Result [facility] [address] [place] [address] * (ABNORMAL) Comprehensive metabolic panel (03/04/2024 8:56 AM PHOTOGRAPHY SALES ASSOCIATE) Pathologist [facility] Glucose 161(H) 65 - 99 mg/dL [facility] [...] pl 4.0 3.5 - 5.3 mmol/L [facility] Chloride 102 98 - 110 mmol/L [facility] CO2 28 20 - 32 mmol/L [facility] Calcium 9.3 8.6 - 10.4 mg/dL [facility] Protein, sr 7.4 6.1 - 8.1 g/dL [facility] Albumin 4.3 3.6 - 5.1 g/dL [facility] GLOBULIN 3.1 1.9 - 3.7 g/dL (calc) [facility] Alb/glob ratio 1.4 1.0 - 2.5 (calc) [facility] Bilirubin, total 0.8 0.2 - 1.2 mg/dL [facility] Alk phos 76 37 - 153 U/L [facility] AST 16 10 - 35 U/L [facility] ALT (SGPT) 11 6 - 29 U/L [facility] Blood 03/04/2024 8:56 AM PHOTOGRAPHY SALES ASSOCIATE 03/04/2024 8:57 AM PHOTOGRAPHY SALES ASSOCIATE Narrative [facility] - 03/05/2024 5:37 AM PHOTOGRAPHY SALES ASSOCIATE FASTING:YES FASTING: YES Jose Guy MD LAB BLOOD ORDERABLES Final Result Performing Organization Address City/State/[facility] Co de Phone Number [facility] [address] [place] [address] * SCAN - LABS (03/04/2024) Provider Scanning Final Result * Colonoscopy (02/27/2024 9:56 AM PHOTOGRAPHY SALES ASSOCIATE) Anatomical Region Laterality Modality Other Historical Provider ENDOSCOPY PROCEDURES Ayana l Result * (ABNORMAL) High Risk HPV DNA Detection with Genotyping (Molecular component) (12/13/2023 11:01 AM CDT) HPV HR 16 Not Detected Not Detected [facility] Comment:Testing performed by : [facility], [address] [facility], [place]., [address] HPV HR 18 Not Detected Not Detected KEENA CEVALLOS Comment:Testing performed by : [facility], [address] [place]., [address] HPV HR Non 16/18 Detected(A) Not Detected [...] this test have been verified by the [facility] Molecular Infectious Disease laboratory. Correlate with separately reported cytology results, as applicable. Interpretive data last revised 22 Testing performed by: [facility], [address] [place]., [address] Endocervical 12/13/2023 11:0 1 AM CDT 12/16/2023 9:08 AM CDT Narrative KEENA CEVALLOS - 12/16/2023 9:53 PM CDT Clinical history and diagnosis->screening Testing type->Screening Last menstrual period (date if known)->>5 years Menstrual status->Postmenopausal Previous negative PAP?->Yes Previous atypical cytology->ASCUS Eduarda Pop NP LAB BODY FLUIDS AND STOOLS OR DERABLES Final Result KEENA CEVALLOS [address] [facility] Department [place] [address] [facility] * DIABETES EYE EXAM (09/30/2023 10:01 AM [...] age 40, based on guidelines of the [employer] (ACR Practice Parameter for the Performance of Screening and Diagnostic Mammography) and [employer]. For women [...] Most Recently Relevant to Health Maintenance Insurance [facility] OPEN ACCESS CIGNA OPEN ACCESS CIGNA OPEN ACCESS Care Teams Roller Coaster Operator Relationship Specialty Start Date End Date Jose Guy MD [address] [facility] [address] [address] PCP - General Internal Medicine 11/21/23
--- OUTSIDE RECORDS SUMMARY | 2024-05-11 18:37 | XMS_ITS | Encounter Summary ---
Author Organization [facility] Address [address] [place] [address] Care Team Providers Care Post Form Remover Name Role Phone Jose Guy MD Primary Care Provider [phone] Encounter Details Date Type Department Care Team ([facility] Contact Info) Description 03/04/2024 Orders Only [facility] [place] Health Information Management [address] [place] [phone] Scanning, Provider Social History Tobacco Use Types [...] on filedocumented in this encounter Care Teams Post Form Remover Relationship Specialty Start Date End Date Jose Guy MD [address] [facility] [address] [place] [address] [place] [phone] PCP - General Internal Medicine 11/21/23 documented as of this encounter
--- OUTSIDE RECORDS SUMMARY | 2024-05-11 18:37 | XMS_ITS | Encounter Summary ---
Author Organization [facility] Address [address] [place] [address] Care Team Providers Care Planer Stone Name Role Phone Unavailable Primary Care Provider Unavailabl e Reason for Referral * Eval and Treat (Routine) - Open Specialty Diagnoses / Procedures Referred By Contac t Referred To Contact Oncology Diagnoses Malignant neoplasm of ascending colon (CMS/HCC) Procedures [place] OFFICE/OUTPATIENT ESTABLISHED MOD MDM 30 MIN KS OFFICE/OUTPATIENT NEW MODERATE MDM 45 MINUTES Emmett Earl MD [address] [place] [phone] Phone: tel: fax: Referral ID Status Reason Start Date Expiration Date V isits Requested Visits Authorized [id number] Open STL CTS 05/11/2024 05/12/2025 1 1 ICAL SERVICES SPECIALIST * Eval and Treat (Routine) - Open Specialty Diagnoses / Procedures Referred By Contac t Referred To Contact Surgery Diagnoses Malignant neoplasm of ascending colon (CMS/HCC) Procedures [place] OFFICE/OUTPATIENT ESTABLISHED MOD MDM 30 MIN [place] OFFICE/OUTPATIENT NEW MODERATE MDM 45 MINUTES Emmett Ealr MD [address] [place] [address] [employer] [address] [place] [phone] Phone: tel: fax: Francisco Landry MD NO ADDRESS ON FILE Referral ID Status Reason Start Date Expiration Date V isits Requested Visits Authorized [id number] Open STL CTS 05/11/2024 05/11/2025 1 1 ICAL SERVICES SPECIALIST Reason for Visit * Reason Comments Establish Care Cancer Encounter Details Date Type Department Care Team (Late st Contact Info) Description 05/11/2024 4:00 PM CLINICAL SERVICES SPECIALIST Office Visit [facility] Oncology and Hematology - [place] [address] [facility] [address] [place] [address] Emmett Earl MD [address] [facility] [address] [place] [address] Malignant neoplasm of ascending colon (CMS/HCC) (Primary Dx); Chronic anemia Social History Tobacco Use Types Packs/Day Years Used Date Smoking Tobacco: Never Smokeless Tobacco: Never Alcohol Use Standard Drinks/Week Comments Yes 0 (1 standard drink = 0.6 oz pur e alcohol) Occasionally Comments Unknown Sex and Gender Information Value Date Recorded Sex Assigned at Not on file Legal Sex Female 2:49 PM CLINICAL SERVICES SPECIALIST Gender Identity Not on file Sexual Orientation Not on file documented as of this encounter Last Filed Vital Signs Vital Sign Reading Time Taken Comments Blood Pressure 135/76 05/11/2024 3:36 PM CLINICAL SERVICES SPECIALIST Pulse 94 05/11/2024 3:36 PM CLINICAL SERVICES SPECIALIST Temperature 36.4 C (97.6 F) 05/11/2024 3:36 PM CLINICAL SERVICES SPECIALIST Respiratory Rate 15 05/11/2024 3:36 PM CLINICAL SERVICES SPECIALIST Oxygen Saturation 97% 05/11/2024 3:36 PM CLINICAL SERVICES SPECIALIST Inhaled Oxygen Concentration - - Weight 70.1 kg (154 lb 9.6 oz) 05/11/2024 3:36 P M CLINICAL SERVICES SPECIALIST Height 162.6 cm (5' 4 ) 05/11/2024 3:36 PM CLINICAL SERVICES SPECIALIST Body Mass Index 26.54 05/11/2024 3:36 PM CLINICAL SERVICES SPECIALIST documented in this encounter Progress Notes * Emmett Earl MD - 05/11/2024 4:48 PM CST Hematology-oncology consult Note Requesting Physician Francisco Landry MD Primary Care Physician No primary care provider on file. Problem list There is no problem list on file for this patient. Previous TREATMENT ? Measurable Disease ? Reason for Visit Dayna Etienne is a 58 y.o. female who was referred for consultation for colon cancer. History of present illness This is a pleasant 58-year-old female with history of hyperlipidemia and diabetes had a screening colonoscopy done on February 27, 2024 that showed malignant appearing colon mass in the ascending colon. Patient had right-sided hemicolectomy done on April 15, 2024. Pathology showed 1 out of 19 lymph node positive for malignancy. Patient also had CT scan abdomen and pelvis done on April 07 showed 2 cm wall thickening in the ascending colon with no evidence of metastatic disease. Chest x-ray was also unremarkable. She has no previous history of malignancy. She has recovered well from the surgery. Denies any melena hematochezia. Weight and appetite stable. No other new complaints. Past Medical History Past Medical History: Diagnosis Date Diabetes mellitus (CMS/HCC) Hyperlipidemia Malignant neoplasm (CMS/HCC) Surgical History No past surgical history on file. Medications Current Outpatient Medications Medication Sig Dispense Refill metFORMIN (GLUCOPHAGE) 1,000 mg tablet Take 1,000 mg by mouth. rosuvastatin (CRESTOR) 20 mg tablet Take 20 mg by mouth daily. aspirin (ECOTRIN EC) 81 mg Tablet, Delayed Release (E.C.) Take 81 mg by mouth daily. No current facility-administered medications for this visit. Allergies No Known Allergies Immunizations: There is no immunization history on file for this patient. Family History Family History Problem Relation Name Age of Onset No Known Problems Father Uterine Cancer Mother No Known Problems Brother Thyroid Cancer Brother Diabetes Brother Breast Cancer Sister No Known Problems Child No Known Problems Child Social History Social History Tobacco Use Smoking status: Never Smokeless tobacco: Never Substance Use Topics Alcohol use: Yes Comment: Occasionally Review of Systems Constitutional: Patient did not mention fever; no night sweats; no anorexia; no weight loss; no fatique NEENT: Patient did not mention headache; no change in vision; no change in hearing; no sore throat;no dysphagia Respiratory: Patient did not mention shortness of breath; no pleuritic chest pain; no cough; no hemoptysis Cardiac: Patient did not mention cardiac-like chest pain; no palpitations; no orthopnea; no PND; noDOE Breasts: Patient did not mention tenderness; no masses GI: Patient did not mention abdominal pain; no nausea; no vomiting; no diarrhea; no hematochezia; no melena : Patient did not mention dysuria; no frequency; no hesitancy; no hematuria COMPLIANCE CLERK: Musculosketetal: Patient did not mention bone pain; no arthralgia; no joint swelling; no myalgia; Skin: Patient did not mention pruritis; no rash; no petechiae; no ecchymoses Endocrine: Patient did not mention polydipsia; no polyuria; no unusual weight gain Neuro: Patient did not mention headache; no change in vision; no sensory changes; no muscle weakness; no confusion; no seizures Psych: Patient did not mention anxiety; no depression; Physical Exam Vitals: As per nursing note Constitutional: Well developed, well nourished, no acute distress, non-toxic appearance Teeth and gum. No signs of infection or swelling. Eyes: PERRL, conjunctiva normal HEENT: Atraumatic, external ears normal, nose normal, oropharynx moist, no pharyngeal exudates. no sinus tenderness Neck- normal range of motion, no tenderness, supple Respiratory: No respiratory distress, normal breath sounds, no rales, no wheezing Cardiovascular: Normal rate, normal rhythm, no murmurs, no gallops, no rubs GI: Soft, nondistended, normal bowel sounds, nontender, no splenomegaly, no hepatomegaly, no mass, no rebound, no guarding : No costovertebral angle tenderness Musculoskeletal: No edema, no tenderness, no deformities. Back- no tenderness Integument: Well hydrated, no rash, Digits and nails inspection normal Lymphatic: No lymphadenopathy noted Neurologic: Alert & oriented x 3, CN 2-12 normal, normal motor function, normal sensory function, no focal deficits noted Psychiatric: Speech and behavior appropriate ? labs No results found for this or any previous visit (from the past 24 hours). Pathology ? Imaging & Other Studies Performance Status? ECOG performance status 0 Assessment / Plan: ? 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 1 out of 19 lymph node positive for metastatic adenocarcinoma. I have reviewed this pathology report and imaging study findings with patient as well as NCCN guidelines for stage III colon cancer management. Based on NCCN guideline I would recommend adjuvant chemotherapy with FOLFOX regimen. She will be referred to Dr. Frantz deluna. We will also refer her for chemotherapy teaching. I will order baseline labs including CBC, CMP and CEA level today. I have personally discussed the side effects of chemotherapy in detail. I have answered all the questions to patient satisfaction. Anemia. I will check iron studies and CBC today. Hyperlipidemia. Patient is on Crestor. Type 2 diabetes. She is on metformin. Thank you very much for allowing me to participate in Dayna Etienne's evaluation and management. Please feel free to contact if I can be of any further assistance in your patient???s care requiring hematology or oncology evaluation. Sincerely, ? ? Emmett Earl M.D. cell TOBACCO COUNSELING She is not a tobacco/nicotine user. Emmett Earl MD ,05/11/2024 4:48 PM ? Total time spent 60 minutes, two third of the total time spent counseling patient [id number]. CC:?Francisco Landry MD ICAL SERVICES SPECIALIST documented in this encounter Plan of Treatment Scheduled Orders Name Type Priority Associated Diagnoses Orde r Schedule CBC WITH DIFFERENTIAL Lab Stat Chronic anemia Expected: 05/11/2024, Expires: 05/11/2025 COMPREHENSIVE METABOLIC PANEL Lab Stat Chronic anemia Expected: 05/11/2024, Expires: 05/11/2025 FERRITIN Lab Routine Chronic anemia Expected: 05/11/2024, Expires: 05/11/2025 IRON, TIBC, AND PERCENT SATURATION Lab Routine Chronic anemia Expected: 05/11/2024, Expires: 05/11/2025 CEA Lab Routine Malignant neoplasm of ascending colon (CMS/HCC) Expected: 05/11/2024, Expires: 05/11/2025 Scheduled Referrals Name Type Priority Associated Diagnoses Orde r Schedule AMB REFERRAL TO GENERAL SURGERY Outpatient Referral Routine Malignant neoplasm of ascending colon (CMS/HCC) Ordered: 05/11/2024 AMB REFERRAL TO CHEMO TEACHING Outpatient Referral Routine Malignant neoplasm of ascending colon (CMS/HCC) Ordered: 05/11/2024 documented as of this encounter Visit Diagnoses Diagnosis Malignant neoplasm of ascending colon (CMS/HCC)- Primary Malignant neoplasm of ascending colon Chronic anemia Anemia, unspecified documented in this encounter
--- OUTSIDE RECORDS SUMMARY | 2024-05-11 18:37 | XMS_ITS | Clinical Summary ---
Author Organization [facility] George wilkerson Norma Address [address] [place] [address] Care Team Providers Care Telephone Information Clerk Name Role Phone Unavailable Primary Care Provider Unavailabl e Allergies No known active allergies Medications metFORMIN (GLUCOPHAGE) 1,000 mg tablet Take 1,000 mg by mouth. 04/13/2024 Active rosuvastatin (CRESTOR) 20 mg tablet Take 20 mg by mouth daily. 04/13/2024 Active aspirin (ECOTRIN EC) 81 mg Tablet, Delayed Release (E.C.) Take 81 mg by mouth daily. 04/13/2024 6 Active Active Problems No known active problems Encounters Date Type Department Care Team Description 05/11/2024 4:00 PM CIVIL ENGINEERING SPECIALIST Office Visit [facility] Oncology and Hematology - [place] [address] [facility] [address] [address] Emmett Earl MD Malignant neoplasm of ascending colon (CMS/HCC) (Primary Dx); Chronic anemia from Last 3 Months Family History Medical History Relation Name Comments No Known Problems Brother 1 Diabetes Brother 2 Thyroid Cancer Brother 2 No Known Problems Child 1 No Known Problems Child 2 No Known Problems Father Uterine Cancer Mother Breast Cancer Sister Relation Name Status Comments Brother 1 Alive Brother 2 Alive Child 1 Alive Child 2 Alive Father Mother Sister Alive Social History Tobacco Use Types Packs/Day Years Used Date Smoking Tobacco: Never Smokeless Tobacco: Never Alcohol Use Standard Drinks/Week Comments Yes 0 (1 standard drink = 0.6 oz pur e alcohol) Occasionally Comments Unknown Sex and Gender Information Value Date Recorded Sex Assigned at Not on file Legal Sex Female 2:49 PM CIVIL ENGINEERING SPECIALIST Gender Identity Not on file Sexual Orientation Not on file Last Filed Vital Signs Vital Sign Reading Time Taken Comments Blood Pressure 135/76 05/11/2024 3:36 PM CIVIL ENGINEERING SPECIALIST Pulse 94 05/11/2024 3:36 PM CIVIL ENGINEERING SPECIALIST Temperature 36.4 C (97.6 F) 05/11/2024 3:36 PM CIVIL ENGINEERING SPECIALIST Respiratory Rate 15 05/11/2024 3:36 PM CIVIL ENGINEERING SPECIALIST Oxygen Saturation 97% 05/11/2024 3:36 PM CIVIL ENGINEERING SPECIALIST Inhaled Oxygen Concentration - - Weight 70.1 kg (154 lb 9.6 oz) 05/11/2024 3:36 P M CIVIL ENGINEERING SPECIALIST Height 162.6 cm (5' 4 ) 05/11/2024 3:36 PM CIVIL ENGINEERING SPECIALIST Body Mass Index 26.54 05/11/2024 3:36 PM CIVIL ENGINEERING SPECIALIST Plan of Treatment Health Maintenance Due Date Last Done Comments CERVICAL CANCER SCREENING 11/27/1993 FIT-DNA Q 3 years 11/27/2008 FIT/FOBT Q 1 year 11/27/2008 Flex Sig/CT Colonography Q 5 years 11/27/2008 ZOSTER VACCINE (1 of 2) 11/27/2013 INFLUENZA VACCINE (#1) 2023 3, 01/07/2019, 03/13/2018, Additional history exists Preventative Visit- Commercial 03/25/2024 12/12/2023 BREAST CANCER SCREENING 08/06/2024 08/07/2023 DTAP/TDAP/TD VACCINES (2 - Td or Tdap) 01/07/2029 01/07/2019 COLORECTAL SCREENING 02/26/2034 02/27/2024 Colorectal Cancer Screening 02/26/2034 RSV VACCINE (60+ or ) (1 - 1-dose 75+ series) 11/27/2038 HEPATITIS B VACCINES Aged Out No long er eligible based on patient's age to complete this topic Insurance [facility] OPEN ACCESS HMO
--- OUTSIDE RECORDS SUMMARY | 2024-05-11 18:37 | XMS_ITS | Continuity of Care Document ---
Author Organization [facility] Address [address] [place] [address] [address] [place] [address] Phone Care Team Providers Care Shipping Agent Name Role Phone Brittny, Edward Unavailable Unavailable Advance Directives Directive Yes / No Effective Date File Name No Information Encounters Encounter Description Practice Location Reason(s) For Visit Diagnoses Date Provider Providers Copied on Encounter [facility], [address] [place], [place], [id number], [place] tel:[phone] [facility] No Information Dec-0 [phone] 9 Doisy Edward. [address] , [address], [place], [address], [place]. tel:[phone] Family History Family Member Type Diagnosis Age At Onset No Information Payers Payer name Insurance type Covered constitution party ID Authoriza tion(s) No Information Social History [...]
[2024-05-11 18:41] LABS: Percent Iron Saturation 12 % (20-50)
== END 2024-05-11 16:53 | disposition home or self-care (01) ==
LOC: ANHLAB 16:54
PROVIDERS: PCP Internal Medicine; Visit Provider Internal Medicine Hematology & Oncology
DX: C18.2 Malignant neoplasm of ascending colon (principal); D64.9 Anemia, unspecified
CPT/HCPCS: 36415; 80053; 82378; 82728; 83540; 83550; 85025

== ENCOUNTER 2024-05-22 10:24 | Outpatient (CLI) | payer OTHER, SELFPAY ==
[2024-05-22 10:59] LABS: Prothrombin Time 13.8 Seconds (11.1-14.7)
[2024-05-22 11:00] LABS: Partial Thromboplastin Time 28.1 Seconds (22.3-36.8)
== END 2024-05-22 10:25 | disposition home or self-care (01) ==
LOC: ANHSURGERY 10:30
PROVIDERS: PCP Internal Medicine; Visit Provider Surgery
DX: Z01.818 Encounter for other preprocedural examination (principal); C18.2 Malignant neoplasm of ascending colon
CPT/HCPCS: 36415; 85610; 85730

== ENCOUNTER 2024-05-28 00:34 | Day surgery (SDC) | payer OTHER, SELFPAY ==
[2024-05-18 14:25] VITALS: BMI 25.7
--- NOTE | 2024-05-18 14:41 | PC.NURSE ---
Report to the Outpatient Waiting Room, entrance under the green pavilion located off [facility], at time _11:00am on date _05/28/24 . Planned Procedure Time: __1:00 pm .? Time changes happen often and if your time is changed the preop area will call you the afternoon before. - You and your visitor will be asked to self-screen and do not enter if you have any COVID symptoms. Please call surgeon if you need to reschedule. - A mask is optional within the hospital at this time. Patients may have clear liquids (water, carbonated beverages, clear teas, apple juice) until 3 hours prior to surgery with a maximum of 20 ounces. - No food from midnight until time of surgery and no smoking, or chewing tobacco (or any form of nicotine). No chewing gum, candy or mints. (1000am) Take only the following medications with a SIP of water on the morning of surgery: ___None DO NOT STOP ANY OF YOUR OTHER PRESCRIPTION MEDICATIONS PRIOR TO SURGERY EXCEPT THE FOLLOWING Hold all vitamins and supplements for 3 days per anesthesiologist. Medications to discontinue per physician None Date to take last dose____None Please no make-up, nail wallisian, hairspray, perfume, deodorant, or body powder the day of surgery.? No jewelry (including any body piercings) or valuables the day of surgery, leave them at home.? Please take a shower or bath the night before, or the morning of, surgery with an antibacterial soap.? Wear comfortable, loose fitting clothing.? - Jewelry must be removed prior to entering the operating room.? Rings and piercings that are not removed may be cut off. - The hospital will not accept responsibility for valuables.? - Please leave all valuables, including medications, at home the day of surgery. If you are going home after surgery, a licensed lift driver must drive you home.? - NO public transportation without another adult if you receive anesthesia. - We recommend that an adult stay with you for 24 hours following discharge. - We also recommend that you do not drive, make important decision, drink alcoholic beverages, or take any drugs that were not prescribed by your health care provider for at least 24 hours after your discharge time. Follow any additional instructions given to you from your surgeon. Telephone instructions given to __Patient and asked if any additional questions and then verbalized understanding. Patient advised to call surgeon office or pre surgery nurse liaison [phone] if any additional questions.
--- NOTE | 2024-05-25 15:24 | P.SS_ITS ---
Same Day Admit/Disch: HPI History of Present Illness Chief complaint: malignant neoplasm of ascending colon Narrative: Dayna Etienne is a 58 year old female who had laparoscopic resection of stage III right colon cancer in March. She has been recommended to have adjuvant chemotherapy. She is taken to surgery now for placement of a Port-A-Cath for this purpose. [facility] Past Medical History Medical History Screen for colon cancer Screen for colon cancer Cancer Diabetes type 2, controlled Hyperlipidemia Surgical History Surgical History H/O colectomy 04/15/24 Hand access laparoscopic right colectomy with hand-sewn ileot ransverse anastomosis Dr. Landry History of tubal ligation Hx laparoscopic cholecystectomy 2006 Cataract extraction status of right eye (~2018) Family History Family History Mother Thyroid cancer Heart disease Sibling Thyroid cancer Thyroid disorder Grandparent Thyroid cancer Social History Social History Smoking status: Never smoker Alcohol intake: current Drinks per week: 1 Alcohol use details: Social Substance use: never Substance use type: does not use Do You Feel Safe in your Home?: Yes Lack of Transportation: No Lack of Food: Never True Current Housing: I Have Housing Concerned About Future Housing: No Difficulty Paying Gas/Electric Bills: No Difficulty Paying for Meds: No Currently Unemployed: YES Education: High School Diploma/GED Difficulty w/ Childcare or Family Care: No Living arrangements: alone Spiritual care concerns: No Same Day Admit/Disch: Med Pre-admit Medications Home Medications ?Medication ?Instructions ?Recorded ?Confirmed ?Type aspirin 81 mg tablet 81 mg PO DAILY 02/12/24 05/28/24 History metformin 500 mg tablet 1,000 mg PO BID 02/12/24 05/28/24 History rosuvastatin 20 mg tablet 20 mg PO DAILY 02/12/24 05/18/24 History ibuprofen 600 mg tablet 600 mg PO Q6H PRN pain #14 tabs 05/28/24 Rx oxycodone-acetaminophen 5 mg-325 0.5 - 1 tablet PO Q4H PRN pain #10 05/28/24 Rx mg tablet (Percocet) tabs Review of Systems Review of Systems All systems reviewed & are unremarkable except as noted in HPI and below (HPI) Exam Const: General: comfortable, no acute distress, alert and awake HENMT: Head: normocephalic and atraumatic Mouth: Yes Normal oral and palatal mucosa present Eyes: Conjunctivae: conjunctivae normal Pupils: Equal, round and reactive pupils present EOM: EOMs intact bilaterally Neck: Neck: normal visual inspection, no lymphadenopathy and nontender Resp: Effort & Inspection: normal respiratory effort Auscultation: clear to auscultation bilaterally Cardio: Rate: regular rate Rhythm: regular rhythm Heart sounds: no gallops, no murmurs and no rubs GI: Inspection: non-distended and scar (Abdominal wounds healing well) GI Palp: Yes Soft to palpation, No Tenderness to palpation present (GI), No Guarding due to palpation present (GI), No Hepatomegaly present, No Splenomegaly present and No Palpable mass present Skin: Lesions: no lesions Rashes: no rashes Neuro: General: no focal motor deficits and CN's II-XI intact bilaterally Cranial nerves: Yes Equal, round and reactive pupils present, Yes Bilaterally intact EOM present, Yes facial symmetry and Yes Midline tongue present Speech: normal speech Motor exam (neuro): 5/5 motor strength present throughout and Motor abnormalities not present Extrem: General: no clubbing, cyanosis or edema and edema Psych: Affect: normal affect Thought process: Normal thought process present Insight: Good insight present (Psych) DS: Summary Time Spent with Patient Time attestation: Total time spent providing and/or coordinating discharge services: DS: Admitting Diagnosis Discharge Date 05/28/2024 Admitting Diagnosis * Stage III colon cancer * Inadequate venous access for chemotherapy-plan to proceed with placement of a Port-A-Cath using ultrasound and under fluoroscopy to facilitate chemotherapy administration. The procedure, risk, benefits have been discussed with the patient. All questions were answered. She agrees to go ahead. DS: Discharge Diagnosis Discharge Diagnosis (1) Cancer of ascending colon: Code(s): C18.2 - Malignant neoplasm of ascending colon Status: Chronic (2) Adjustment and management of vascular access device: Code(s): Z45.2 - Encounter for adjustment and management of vascular access device Status: Acute Discharge Plan Discharge Patient Disposition: Home, Self-Care Discharge Instructions: Medications: Patient to resume all previous home medication Prescriptions to be given to patient at discharge Treatments: May bathe or shower tomorrow. May return to work or driving in 24 hours unless taking narcotic pain medications Follow-up with medical oncologist for chemotherapy. Only need to see Surgeon for follow up if having problems. Patient Language: Citizen Of [place] Stand Alone Forms: General Discharge Instructions Follow-up/Referrals: Emmett Earl MD [Physician] - Keep Reg. Scheduled Appt. Discharge Medications: New oxycodone-acetaminophen [Percocet] 5-325 mg tablet 0.5 - 1 tablet PO Q4H PRN (Reason: pain) Qty: 10 0RF ibuprofen 600 mg tablet 600 mg PO Q6H PRN (Reason: pain) Qty: 14 0RF Continued aspirin 81 mg Tablet 81 mg PO DAILY metformin 500 mg Tablet 1,000 mg PO BID rosuvastatin 20 mg Tablet 20 mg PO DAILY
--- NOTE | ~2024-05-28 | XR_ITS ---
EXAMINATION: XR chest port-a-cath/central DATE: 05/28/2024 14:25 INDICATION: Port placement. TECHNIQUE: A single frontal view of the chest was obtained. COMPARISON: Chest 2 views 04/08/2024 FINDINGS: There is mild atelectasis in the lower lung zones. No pleural effusion or pneumothorax. The heart size is normal. There is a left subclavian port with tip in superior vena cava. There is devia tion of the catheter between the clavicle and first rib. IMPRESSION: 1. Port tip in superior vena cava. Reviewed, dictated and finalized at location A. ER EQUIPMENT
--- NOTE | ~2024-05-28 | XR_ITS ---
EXAMINATION: XR fl guide central line place DATE: 05/28/2024 14:04 INDICATION: Port catheter insertion TECHNIQUE: Single frontal fluoroscopic spot image of the left and central chest was obtained during p rocedure performed by Dr. Landry. Radiologist was not present for the imaging or procedure. The amount of fluoroscopy time used during this procedure was 2.1 minutes. Total DAP was 0.471 mGym^2 COMPARISON: None. FINDINGS: Left subclavian central venous port catheter with distal tip near the superior cavoatrial junction. N o pneumothorax. Heart size is normal. IMPRESSION: 1. Fluoroscopy utilized during placement of a left subclavian central venous port catheter with dista l tip at the superior cavoatrial junction. See procedure note for further detail. Reviewed, dictated and finalized at location L. MATE HOOPS REFEREE IMPRESSION: 1. Fluoroscopy utilized during placement of a left subclavian central venous po rt catheter with distal tip at the superior cavoatrial junction. See procedure note for further detail.
--- OUTSIDE RECORDS SUMMARY | 2024-05-28 00:37 | XMS_ITS | Clinical Summary ---
Author Organization [facility] George wilkerson Delio Address [address] [place] [address] Care Team Providers Care Cloth Printing Back Tender Name Role Phone Unavailable Primary Care Provider Unavailabl e Allergies No known active allergies Medications metFORMIN (GLUCOPHAGE) 1,000 mg tablet Take 1,000 mg by mouth. 04/13/19 Active rosuvastatin (CRESTOR) 20 mg tablet Take 20 mg by mouth daily. 04/13/19 25 2025 Active aspirin (ECOTRIN EC) 81 mg Tablet, Delayed Release (E.C.) Take 81 mg by mouth daily. 04/13/19 25 2025 Active ondansetron (ZOFRAN ODT) 8 mg Tablet, Rapid Dissolve Dissolve 1 tablet on top of tongue then swallow with saliva every 8 hours as needed for nausea or vomiting 30 Tablet 1 05/27/19 25 Active lidocaine-lou locaine (EMLA) 2.5-2.5 % CreamIndicati ons:Malignant neoplasm of ascending colon (CMS/HCC) Apply a quarter size amount to port site 30 minutes before access. May use up to 2 times daily. 30 Gram 1 05/27/19 25 Active lidocaine-lou locaine (EMLA) 2.5-2.5 % Cream Apply to affected area see administration instructions. 30 Gram 1 05/27/19 25 2024 Discontinued Active Problems No known active problems Encounters Date Type Department Care Team Description 05/26/2024 External Device Data STL ABSTRACTION Provider, Abstract 05/26/2024 Refill [facility] Oncology and Hematology - [place] [address] [place] [address] Emmett Earl MD Malignant neoplasm of ascending colon (CMS/HCC) (Primary Dx) 05/26/2024 Refill [facility] Oncology and Hematology - [place] [address] [place] [address] Emmett Earl MD 05/13/2024 External Device Data STL ABSTRACTION Provider, Abstract 05/12/2024 External Device Data STL ABSTRACTION Provider, Abstract 05/12/2024 External Device Data STL ABSTRACTION Provider, Abstract 05/11/2024 4:00 PM FLIGHT ENGINEER HELICOPTER Office Visit [facility] Oncology and Hematology [place] [address] [place] [address] Emmett Earl MD Malignant neoplasm of ascending [...] on file Legal Sex Female 2:49 PM FLIGHT ENGINEER HELICOPTER Gender Identity Not on file Sexual Orientation Not on file Last Filed Vital Signs Vital Sign Reading Time Taken Comments Blood Pressure 135/76 05/11/2024 3:36 PM FLIGHT ENGINEER HELICOPTER Pulse 94 05/11/2024 3:36 PM FLIGHT ENGINEER HELICOPTER Temperature 36.4 C (97.6 F) 05/11/2024 3:36 PM FLIGHT ENGINEER HELICOPTER Respiratory Rate 15 05/11/2024 3:36 PM FLIGHT ENGINEER HELICOPTER Oxygen Saturation 97% 05/11/2024 3:36 PM FLIGHT ENGINEER HELICOPTER Inhaled Oxygen Concentration - - Weight 70.1 kg (154 lb 9.6 oz) 05/11/2024 3:36 P M FLIGHT ENGINEER HELICOPTER Height 162.6 cm (5' 4 ) 05/11/2024 3:36 PM FLIGHT ENGINEER HELICOPTER Body Mass Index 26.54 05/11/2024 3:36 PM FLIGHT ENGINEER HELICOPTER Plan of Treatment Upcoming Encounters Date Type Department Care Team (Late st Contact Info) Description 06/24/2024 9:15 AM CDT Office Visit [facility] Oncology and Hematology - [place] [address] [place] [address] Emmett Earl MD [address] [place] [address] Health Maintenance Due Date Last Done Comments DIABETES ANNUAL RETINAL EXAM 11/27/1981 DIABETES MICROALBUMIN ANNUAL SCREEN 11/27/1981 LDL CHOLESTEROL ANNUAL 11/27/1981 CERVICAL CANCER SCREENING 11/27/1993 ZOSTER VACCINE (1 of 2) 11/27/2013 INFLUENZA VACCINE (#1) 2023 , 01/07/2019, 03/13/2018, Additional history exists Preventative Visit- Commercial 03/25/2024 12/12/2023 DIABETES ANNUAL FOOT EXAM 05/22/2024 05/22/2023 BREAST CANCER SCREENING 08/06/2024 08/07/2023 DIABETES HBA1C Q 6 MONTHS 09/02/2024 03/04/2024 DTAP/TDAP/TD VACCINES (2 - Td or Tdap) 01/07/2029 01/07/2019 RSV VACCINE (60+ or ) (1 - 1-dose 75+ series) 11/27/2038 COLORECTAL SCREENING Discontinued 02/27/2024 Colorectal Cancer Screening Discontinued FIT-DNA Q 3 years Discontinued FIT/FOBT Q 1 year Discontinued Flex Sig/CT Colonography Q 5 years Discontinued HEPATITIS B VACCINES Aged Out No long er eligible based on patient's age to complete this topic Insurance [facility] OPEN ACCESS O
--- OUTSIDE RECORDS SUMMARY | 2024-05-28 00:37 | XMS_ITS | Referral Summary ---
Author Organization [address] Address [address] [place] [address] Care Team Providers Care Flow Specialist Name Role Phone Jose Guy MD Primary Care Provider [phone] Encounters Date Type Department Care Team Description 04/15/2024 Telephone [facility] Internal Medicine [address] [place] [phone] Jose Guy MD 04/13/2024 2:15 PM GLASS POLISHER Office Visit [facility] Internal Medicine [address] [place] [phone] Jose Gyu MD Dyslipidemia (Primary Dx); Gastroesophageal reflux disease without esophagitis; BMI 27.0-27.9,adult; Diabetes mellitus due to underlying condition, uncontrolled, with hyperglycemia (HCC); Malignant neoplasm of ascending colon (HCC); Abnormal Papanicolaou smear of cervix with positive human papilloma virus (HPV) test 03/06/2024 Orders Only [facility] Internal Medicine [address] [place] [phone] ProviderDyan MD 03/05/2024 Telephone [facility] Internal Medicine [address] [place] [phone] Jose Guy MD 03/04/2024 Orders Only [facility] Information Management [address] [place] [address] Scanning, Provider from Last 3 Months Allergies No known active allergies Medications lancets (freestyle) 28 gauge misc Test three times daily 300 each 1 05/22/2023 Active Freestyle InsuLinx Test Strips strip TEST 3 TIMES A DAY 300 strip 1 2023 Active rosuvastatin (CRESTOR) 20 mg tablet Take 1 tablet (20 mg total) by mouth daily 30 tablet 5 04/13/2024 6 Active aspirin 81 mg enteric coated tablet Take 1 tablet (81 mg total) by mouth daily 30 tablet 5 04/13/2024 6 Active metFORMIN (GLUCOPHAGE) 1,000 mg tablet 1 BID 60 tablet 5 04/13/2024 Active Active Problems Problem Noted Date Diagnosed Date Malignant neoplasm of ascending colon 04/13/2024 Assessment & Plan (04/13/2024 2:56 PM GLASS POLISHER): Patient had colonoscopy in February 2023 that showed malignant tumor in the ascending colon. She is scheduled for resection in couple of days. Advised to hold aspirin. Abnormal Papanicolaou smear of cervix with positive human papilloma virus (HPV) test 01/27/2024 Overview (04/13/2024): Managed by the cans vacuum tester Assessment & Plan (04/13/2024 2:58 PM GLASS POLISHER): Managed by the cans vacuum tester Encounter for well woman carito arechiga with routine gynecological exam 12/12/2023 Assessment & Plan (12/12/2023 10:40 AM CDT): Pap smear with HPV cotesting completed. Order for mammogram. We will notify the patient of all results. Follow up in one year or sooner if needed. Patient verbalizes understanding regarding plan of care and all questions answered. Dyslipidemia 11/21/2023 Assessment & Plan (04/13/2024 7:56 AM GLASS POLISHER): LDL is 37. Continue Crestor and low-fat diet Assessment & Plan (11/21/2023 2:43 PM CDT): Patient with history of hyperlipidemia. She is not on medications. Discussed low-fat diet. Discussed exercise on regular basis. Pamphlets were given. Uncontrolled diabetes mellitus with hyperglycemi a 05/31/2023 Assessment & Plan (04/13/2024 2:57 PM GLASS POLISHER): Hemoglobin A1c 7.6. Metformin was increased to [...] Comments Blood Pressure 112/64 04/13/2024 2:36 PM GLASS POLISHER Pulse 100 04/13/2024 2:36 PM GLASS POLISHER Temperature 36.2 C (97.2 F) 04/13/2024 2:36 PM GLASS POLISHER Respiratory Rate 16 04/13/2024 2:36 PM GLASS POLISHER Oxygen Saturation 98% 04/13/2024 2:36 PM GLASS POLISHER Inhaled Oxygen Concentration - - Weight 71.7 kg (158 lb) 04/13/2024 2:36 PM GLASS POLISHER Height 162.6 cm (5' 4 ) 04/13/2024 2:36 PM GLASS POLISHER Body Mass Index 27.12 04/13/2024 2:36 PM GLASS POLISHER Plan of Treatment Not on file Procedures Procedure Name Priority Date/Time Associated Diagnosis Comments TSH Routine 03/04/2024 8:56 AM GLASS POLISHER Thyroid disorder screen T4, FREE Routine 03/04/2024 8:56 AM GLASS POLISHER Thyroid disorder screen ALBUMIN CREATININE RATIO, URINE Routine 03/04/2024 8:56 AM GLASS POLISHER Uncontrolled diabetes mellitus with hyperglycemia (HCC) HEMOGLOBIN A1C Routine 03/04/2024 8:56 AM GLASS POLISHER Uncontrolled diabetes mellitus with hyperglycemia (HCC) LIPID PANEL Routine 03/04/2024 8:56 AM GLASS POLISHER Uncontrolled diabetes mellitus with hyperglycemia (HCC) Dyslipidemia COMPREHENSIVE METABOLIC PANEL Routine 03/04/2024 8:56 AM GLASS POLISHER Uncontrolled diabetes mellitus with hyperglycemia (HCC) HEPATITIS C ANTIBODY Routine 03/04/2024 8:56 AM GLASS POLISHER SCAN - LABS 03/04/2024 COLONOSCOPY Routine 02/27/2024 9:56 AM GLASS POLISHER HIGH RISK HPV DNA DETECTION WITH GENOTYPING Routine 12/13/2023 11:01 AM CDT Cervical cancer screening HM DIABETES EYE EXAM Routine 09/30/2023 10:01 AM CDT SCREENING MAMMOGRAM BILATERAL W RIVER Schedule Routine, Read Routine (OP Routine) 08/07/2023 1:17 PM CDT Screening mammogram for breast cancer from Last 3 Months or Most Recently Relevant to Health Maintenance Results * Hepatitis C antibody (03/04/2024 8:56 AM GLASS POLISHER) Hep C Ab NON-REACTI VE NON-REACT PANKAJ [facility] Comment: HCV antibody was non-reactive. There is no laboratory evidence of HCV infection. In most cases, no further action is required. However, if recent HCV exposure is suspected, a test for HCV RNA (test code 62796) is suggested. For additional information please refer to http://education.Japan Carlife Assist/faq/RRB55t2 (This link is being provided for informational/ educational purposes only.) 03/04/2024 8:56 AM GLASS POLISHER 03/04/2024 8:57 AM GLASS POLISHER Narrative [facility] - 03/05/2024 5:37 AM GLASS POLISHER FASTING:YES FASTING: YES Jose Guy MD LAB MICROBIOLOGY - GENERAL ORDERABLES Final Result [facility] [address] [place] [address] * Albumin Creatinine Ratio, Urine (03/04/2024 8:56 AM GLASS POLISHER) Creatinine, ur 110 20 - 275 mg/dL [...] a diagnostic category. Urine 03/04/2024 8:56 AM GLASS POLISHER 03/04/2024 8:57 AM GLASS POLISHER Narrative [facility] - 03/05/2024 5:37 AM GLASS POLISHER FASTING:YES FASTING: YES Jose Guy MD LAB URINE ORDERABLES Final Result [facility] [address] [facility] [place] [address] * TSH (03/04/2024 8:56 AM GLASS POLISHER) [facility] TSH 2.95 0.40 - 4.50 mIU/L [facility] Blood 03/04/2024 8:56 AM GLASS POLISHER 03/04/2024 8:57 AM GLASS POLISHER Narrative [facility] - 03/05/2024 5:37 AM GLASS POLISHER FASTING:YES FASTING: YES Jose Guy MD LAB BLOOD ORDERABLES Final Result Performing Organization Address [facility] de Phone Number [facility] [address] [place] [address] * T4, free (03/04/2024 8:56 AM GLASS POLISHER) [facility] Free T4 1.1 0.8 - 1.8 ng/dL [facility] Blood 03/04/2024 8:56 AM GLASS POLISHER 03/04/2024 8:57 AM GLASS POLISHER Narrative [facility] - 03/05/2024 5:37 AM GLASS POLISHER FASTING:YES FASTING: YES Jose Guy MD LAB BLOOD ORDERABLES Final Result Performing Organization Address [facility] Co de Phone Number [facility] [address] [place] [address] * (ABNORMAL) Hemoglobin A1c (03/04/2024 8:56 AM GLASS POLISHER) [facility] Hgb A1C 7.6(H) <5.7 % of total Hgb [facility] Comment: For someone without known diabetes, a [...] diabetes for children. Blood 03/04/2024 8:56 AM GLASS POLISHER 03/04/2024 8:57 AM GLASS POLISHER Narrative [facility] - 03/05/2024 5:37 AM GLASS POLISHER FASTING:YES FASTING: YES us Jose Guy MD LAB BLOOD ORDERABLES Final Result [facility] [address] [place] [address] * (ABNORMAL) Lipid panel (03/04/2024 8:56 AM GLASS POLISHER) [facility] Cholesterol 95 <200 mg/dL Dana GiveyDenilson Goodson HDL 44(L) > OR = 50 mg/dL Android App Review SourceDenilson Goodson Triglycerides 65 <150 mg/dL Android App Review SourceDenilson Goodson LDL 37 mg/dL (calc) Android App Review SourceDenilson Goodson Comment: Reference range: <100 Desirable range <100 mg/dL for primary prevention; <70 mg/dL for patients with CHD or diabetic patients with > or = 2 CHD risk factors. LDL-C is now calculated using the Raymond-Milli calculation, which is a validated novel method providing better accuracy than the Friedewald equation in the estimation of LDL-C. Raymond VALENZUELA et al. SIMA. 2013;310(19): 9054-0709 (http://education.Kimeltu.EsLife/faq/CPH347) Chol/HDL ratio 2.2 <5.0 (calc) Android App Review SourceDenilson Goodson Non-HDL, (LDL+VLDL) 51 <130 mg/dL (calc) ChugBrenda Goodson Comment: For patients with diabetes plus 1 major ASCVD risk factor, treating to a non-HDL-C goal of <100 mg/dL (LDL-C of <70 mg/dL) is considered a therapeutic option. Blood 03/04/2024 8:56 AM GLASS POLISHER 03/04/2024 8:57 AM GLASS POLISHER Narrative [facility] - 03/05/2024 5:37 AM GLASS POLISHER FASTING:YES FASTING: YES Jose Guy MD LAB BLOOD ORDERABLES Final Result [facility] [address] [place] [address] * (ABNORMAL) Comprehensive metabolic panel (03/04/2024 8:56 AM GLASS POLISHER) [facility] Glucose 161(H) 65 - 99 mg/dL Android App Review SourceDenilson jovel Hamzah Comment: Fasting reference interval For someone without known diabetes, a glucose value >125 mg/dL indicates that they may have diabetes and this should be confirmed with a follow-up test. BUN 13 7 - 25 mg/dL [facility] [employer] med Hamzah Creatinine 0.66 0.50 - 1.05 mg/dL [facility] Ham[facility]ah eGFR 100 > OR = 60 mL/min/1.7 3m2 Android App Review Source med Goodson BUN/creat ratio SEE NOTE: 6 - 22 (calc) Android App Review Source med Hamzah Comment: Not Reported: BUN and Creatinine are within reference range. Sodium 138 135 - 146 mmol/L [facility] Potassium, pl 4.0 3.5 - 5.3 mmol/L [facility] Chloride 102 98 - 110 mmol/L Android App Review [facility] Hamzah CO2 28 20 - 32 mmol/L Android App Review [facility]ah Calcium 9.3 8.6 - 10.4 mg/dL [facility]ah Protein, sr 7.4 6.1 - 8.1 g/dL Android App Review [facility]ah Albumin 4.3 3.6 - 5.1 g/dL [facility]ah GLOBULIN 3.1 1.9 - 3.7 g/dL (calc) Android App Review [facility]ah Alb/glob ratio 1.4 1.0 - 2.5 (calc) Android App Review [facility]ah Bilirubin, total 0.8 0.2 - 1.2 mg/dL [facility] Hamzah Alk phos 76 37 - 153 U/L [facility] Hamzah AST 16 10 - 35 U/L [facility] ALT (SGPT) 11 6 - 29 U/L [facility] Blood 03/04/2024 8:56 AM GLASS POLISHER 03/04/2024 8:57 AM GLASS POLISHER Narrative [facility] - 03/05/2024 5:37 AM GLASS POLISHER FASTING:YES FASTING: YES Jose Guy MD LAB BLOOD ORDERABLES Final Result [facility] [address] [place] [address] * SCAN - LABS (03/04/2024) Provider Scanning Final Result * Colonoscopy (02/27/2024 9:56 AM GLASS POLISHER) Anatomical Region Laterality Modality Other Historical Provider ENDOSCOPY PROCEDURES Ayana l Result * (ABNORMAL) High Risk HPV DNA Detection with Genotyping (Molecular component) (12/13/2023 11:01 AM CDT) HPV HR 16 Not Detected Not Detected [facility] Comment:Testing performed by : [facility], [address] [place]., [address] HPV HR 18 Not Detected Not Detected [facility] Comment:Testing performed by : [facility], [address] [place]., [address] HPV HR Non 16/18 Detected(A) Not Detected [...] this test have been verified by the [facility] Molecular Infectious Disease laboratory. Correlate with separately reported cytology results, as applicable. Interpretive data last revised 22 Testing performed by: [facility], [address] [place]., [address] Endocervical 12/13/2023 11:0 1 AM CDT 12/16/2023 9:08 AM CDT Narrative [facility] - 12/16/2023 9:53 PM CDT Clinical history and diagnosis->screening Testing type->Screening Last menstrual period (date if known)->>5 years Menstrual status->Postmenopausal Previous negative PAP?->Yes Previous atypical cytology->ASCUS Eduarda Pop NP LAB BODY FLUIDS AND STOOLS OR DERABLES Final Result [facility] [address] [facility] Department [place] [address] [facility] * DIABETES EYE EXAM (09/30/2023 [...] age 40, based on guidelines of the [employer] (ACR Practice Parameter for the Performance of Screening and Diagnostic Mammography) and [place]. For women [...] Most Recently Relevant to Health Maintenance Insurance [employer] OPEN ACCESS [employer] OPEN ACCESS [employer] OPEN ACCESS Care Teams Flow Specialist Relationship Specialty Start Date End Date Jose Guy MD [address] [place] [address] PCP - General Internal Medicine 11/21/23
--- OUTSIDE RECORDS SUMMARY | 2024-05-28 00:37 | XMS_ITS | Encounter Summary ---
Author Organization [facility] Address [address] [place] [address] Care Team Providers Care Digital Media Coordinator Name Role Phone Unavailable Primary Care Provider Unavailabl e Encounter Details Date Type Department Care Team (Late st Contact Info) Description 05/26/2024 External Device Data STL ABSTRACTION Provider, Abstract NO ADDRESS ON FILE Social History Tobacco Use Types Packs/Day Years Used Date Smoking Tobacco: Never Smokeless Tobacco: Never Alcohol Use Standard Drinks/Week Comments Yes 0 (1 standard drink = 0.6 oz pur e alcohol) Occasionally Comments Unknown Sex and Gender Information Value Date Recorded Sex Assigned at Not on file Legal Sex Female 2:49 PM CLAY TEMPERER Gender Identity Not on file Sexual Orientation Not on file documented as of this encounter Plan of Treatment Upcoming Encounters Date Type Department Care Team (Late st Contact Info) Description 06/24/2024 9:15 AM CDT Office Visit [facility] Oncology and Hematology - [place] [address] [place] [address] [facility] [address] [place] [address] Emmett Earl MD [address] [place] [address] documented as of this encounter Visit Diagnoses Not on filedocumented in this encounter
--- OUTSIDE RECORDS SUMMARY | 2024-05-28 00:37 | XMS_ITS | Encounter Summary ---
Author Organization [facility] Healthcare Address [address] [place] [address] Care Team Providers Care Support Representative Name Role Phone Jose Guy MD Primary Care Provider [phone] Encounter Details Date Type Department Care Team ([facility] Contact Info) Description 03/04/2024 Orders Only [facility] Health Information Management [address] [place] [address] Scanning, Provider Social History Tobacco Use Types [...] on filedocumented in this encounter Care Teams Support Representative Relationship Specialty Start Date End Date Jose Guy MD [address] [facility] [address] [address] [place] [address] [place] [phone] PCP - General Internal Medicine 11/21/23 documented as of this encounter
--- OUTSIDE RECORDS SUMMARY | 2024-05-28 00:37 | XMS_ITS | Clinical Summary ---
Author Organization [facility] [address] [place] [id number] Care Team Providers Care Train Operator Name Role Phone Jose Guy MD Primary Care Provider [phone] Allergies No known active allergies Medications lancets (freestyle) 28 gauge misc Test three times daily 300 each 1 05/22/2023 Active Freestyle [employer] Test Strips strip TEST 3 TIMES A DAY 300 strip 1 2023 Active rosuvastatin (CRESTOR) 20 mg tablet Take 1 tablet (20 mg total) by mouth daily 30 tablet 5 04/13/2024 Active aspirin 81 mg enteric coated tablet Take 1 tablet (81 mg total) by mouth daily 30 tablet 5 04/13/2024 Active metFORMIN (GLUCOPHAGE) 1,000 mg tablet 1 BID 60 tablet 5 04/13/2024 Active Active Problems Problem Noted Date Diagnosed Date Malignant neoplasm of ascending colon 04/13/2024 Assessment & Plan (04/13/2024 2:56 PM NIPPLE MACHINE OPERATOR): Patient had colonoscopy in February 2023 that showed malignant tumor in the ascending colon. She is scheduled for resection in couple of days. Advised to hold aspirin. Abnormal Papanicolaou smear of cervix with positive human papilloma virus (HPV) test 01/27/2024 Overview (04/13/2024): Managed by the diesel engineer Assessment & Plan (04/13/2024 2:58 PM NIPPLE MACHINE OPERATOR): Managed by the diesel engineer Encounter for well woman carito arechiga with routine gynecological exam 12/12/2023 Assessment & Plan (12/12/2023 10:40 AM CDT): Pap smear with HPV cotesting completed. Order for mammogram. We will notify the patient of all results. Follow up in one year or sooner if needed. Patient verbalizes understanding regarding plan of care and all questions answered. Dyslipidemia 11/21/2023 Assessment & Plan (04/13/2024 7:56 AM NIPPLE MACHINE OPERATOR): LDL is 37. Continue Crestor and low-fat diet Assessment & Plan (11/21/2023 2:43 PM CDT): Patient with history of hyperlipidemia. She is not on medications. Discussed low-fat diet. Discussed exercise on regular basis. Pamphlets were given. Uncontrolled diabetes mellitus with hyperglycemi a 05/31/2023 Assessment & Plan (04/13/2024 2:57 PM NIPPLE MACHINE OPERATOR): Hemoglobin A1c 7.6. Metformin was increased to [...] Type Department Care Team Description 04/15/2024 Telephone [facility] [place] [address] Jose Guy MD 04/13/2024 2:15 PM NIPPLE MACHINE OPERATOR Office Visit [facility] Internal Medicine [facility] [place] [address] Jose Guy MD Dyslipidemia (Primary Dx); Gastroesophageal reflux disease without esophagitis; BMI 27.0-27.9,adult; Diabetes mellitus due to underlying condition, uncontrolled, with hyperglycemia (HCC); Malignant neoplasm of ascending colon (HCC); Abnormal Papanicolaou smear of cervix with positive human papilloma virus (HPV) test 03/06/2024 Orders Only [facility] Internal Medicine [address] [place] [address] [place] [phone] ProviderDyan MD 03/05/2024 Telephone [facility] Internal Medicine [address] [place] [address] [place] [phone] Jose Guy MD 03/04/2024 Orders Only [facility] Health Information Management [address] [place], [place] [id number] Scanning, Provider from Last 3 Months Immunizations [...] Comments Blood Pressure 112/64 04/13/2024 2:36 PM NIPPLE MACHINE OPERATOR Pulse 100 04/13/2024 2:36 PM NIPPLE MACHINE OPERATOR Temperature 36.2 C (97.2 F) 04/13/2024 2:36 PM NIPPLE MACHINE OPERATOR Respiratory Rate 16 04/13/2024 2:36 PM NIPPLE MACHINE OPERATOR Oxygen Saturation 98% 04/13/2024 2:36 PM NIPPLE MACHINE OPERATOR Inhaled Oxygen Concentration - - Weight 71.7 kg (158 lb) 04/13/2024 2:36 PM NIPPLE MACHINE OPERATOR Height 162.6 cm (5' 4 ) 04/13/2024 2:36 PM NIPPLE MACHINE OPERATOR Body Mass Index 27.12 04/13/2024 2:36 PM NIPPLE MACHINE OPERATOR Plan of Treatment Health Maintenance Due Date [...] Panel 03/04/2025 03/04/2024, 03/27/2023 eGFR 03/04/2025 03/04/2024, 02/, 03/27/2023 Depression Screening 04/13/2025 04/13/2024, 12/12/2023, 11/21/2023, Additional history exists DTaP/Tdap/Td Vaccine (2 - Td or Tdap) 01/07/2029 01/07/2019 Hepatitis C Screening Completed 03/04/2024 Procedures Procedure Name Priority Date/Time Associated Diagnosis Comments TSH Routine 03/04/2024 8:56 AM NIPPLE MACHINE OPERATOR Thyroid disorder screen T4, FREE Routine 03/04/2024 8:56 AM NIPPLE MACHINE OPERATOR Thyroid disorder screen ALBUMIN CREATININE RATIO, URINE Routine 03/04/2024 8:56 AM NIPPLE MACHINE OPERATOR Uncontrolled diabetes mellitus with hyperglycemia (HCC) HEMOGLOBIN A1C Routine 03/04/2024 8:56 AM NIPPLE MACHINE OPERATOR Uncontrolled diabetes mellitus with hyperglycemia (HCC) LIPID PANEL Routine 03/04/2024 8:56 AM NIPPLE MACHINE OPERATOR Uncontrolled diabetes mellitus with hyperglycemia (HCC) Dyslipidemia COMPREHENSIVE METABOLIC PANEL Routine 03/04/2024 8:56 AM NIPPLE MACHINE OPERATOR Uncontrolled diabetes mellitus with hyperglycemia (HCC) HEPATITIS C ANTIBODY Routine 03/04/2024 8:56 AM NIPPLE MACHINE OPERATOR SCAN - LABS 03/04/2024 COLONOSCOPY Routine 02/27/2024 9:56 AM NIPPLE MACHINE OPERATOR HIGH RISK HPV DNA DETECTION WITH GENOTYPING Routine 12/13/2023 11:01 AM CDT Cervical cancer screening HM DIABETES EYE EXAM Routine 09/30/2023 10:01 AM CDT SCREENING MAMMOGRAM BILATERAL [place] Schedule Routine, Read Routine (OP Routine) 08/07/2023 1:17 PM CDT Screening mammogram for breast cancer from Last 3 Months or Most Recently Relevant to Health Maintenance Results * Hepatitis C antibody (03/04/2024 8:56 AM NIPPLE MACHINE OPERATOR) Hep C Ab NON-REACTI VE NON-REACT PANKAJ [facility] Comment: HCV antibody was non-reactive. There is no laboratory evidence of HCV infection. In most cases, no further action is required. However, if recent HCV exposure is suspected, a test for HCV RNA (test code 98205) is suggested. For additional information please refer to http://education.YouAre.TV/faq/NFN77u7 (This link is being provided for informational/ educational purposes only.) 03/04/2024 8:56 AM NIPPLE MACHINE OPERATOR 03/04/2024 8:57 AM NIPPLE MACHINE OPERATOR [facility] - 03/05/2024 5:37 AM NIPPLE MACHINE OPERATOR FASTING:YES FASTING: YES us Jose Guy MD LAB MICROBIOLOGY - GENERAL ORDERABLES Final Result [facility] [address] [place] [address] * Albumin Creatinine Ratio, Urine (03/04/2024 8:56 AM NIPPLE MACHINE OPERATOR) Creatinine, ur 110 20 - 275 mg/dL [...] a diagnostic category. Urine 03/04/2024 8:56 AM NIPPLE MACHINE OPERATOR 03/04/2024 8:57 AM NIPPLE MACHINE OPERATOR Narrative [facility] - 03/05/2024 5:37 AM NIPPLE MACHINE OPERATOR FASTING:YES FASTING: YES Result [facility] Jose Guy MD LAB URINE ORDERABLES Final Result [facility] [address] [place] [address] * TSH (03/04/2024 8:56 AM NIPPLE MACHINE OPERATOR) TSH 2.95 0.40 - 4.50 mIU/L [facility] Blood 03/04/2024 8:56 AM NIPPLE MACHINE OPERATOR 03/04/2024 8:57 AM NIPPLE MACHINE OPERATOR Narrative [facility] - 03/05/2024 5:37 AM NIPPLE MACHINE OPERATOR FASTING:YES FASTING: YES Result [facility] Jose Guy MD LAB BLOOD ORDERABLES Final Result Performing Organization Address [facility] Co de Phone Number [facility] [address] [place] [address] * T4, free (03/04/2024 8:56 AM NIPPLE MACHINE OPERATOR) Pathologist [facility] Free T4 1.1 0.8 - 1.8 ng/dL [facility] Blood 03/04/2024 8:56 AM NIPPLE MACHINE OPERATOR 03/04/2024 8:57 AM NIPPLE MACHINE OPERATOR Narrative [facility] - 03/05/2024 5:37 AM NIPPLE MACHINE OPERATOR FASTING:YES FASTING: YES Result [facility] Jose Guy MD LAB BLOOD ORDERABLES Final Result Performing Organization Address [facility] Co de Phone Number [facility] [address] [place] [address] * (ABNORMAL) Hemoglobin A1c (03/04/2024 8:56 AM NIPPLE MACHINE OPERATOR) Hgb A1C 7.6(H) <5.7 % of total Hgb [facility] Comment: For someone without known diabetes, a [...] diabetes for children. Blood 03/04/2024 8:56 AM NIPPLE MACHINE OPERATOR 03/04/2024 8:57 AM NIPPLE MACHINE OPERATOR Narrative [facility] - 03/05/2024 5:37 AM NIPPLE MACHINE OPERATOR FASTING:YES FASTING: YES Jose Guy MD LAB BLOOD ORDERABLES Final Result [facility] [address] [place] [address] * (ABNORMAL) Lipid panel (03/04/2024 8:56 AM NIPPLE MACHINE OPERATOR) [facility] Cholesterol 95 <200 mg/dL [facility] HDL 44(L) > OR = 50 mg/dL [facility] Triglycerides 65 <150 mg/dL [facility] LDL 37 mg/dL (calc) [facility] Comment: Reference range: <100 Desirable range <100 mg/dL for primary prevention; <70 mg/dL for patients with CHD or diabetic patients with > or = 2 CHD risk factors. LDL-C is now calculated using the Raymond-Milli calculation, which is a validated novel method providing better accuracy than the Friedewald equation in the estimation of LDL-C. Raymond VALENZUELA et al. SIMA. 2013;310(19): 7293-9960 (http://education.Alloka.[employer]ar [employer]/faq/SCQ085) Chol/HDL ratio 2.2 <5.0 (calc) [facility] Non-HDL, (LDL+VLDL) 51 <130 mg/dL (calc) [facility] Comment: For patients with diabetes plus 1 major ASCVD risk factor, treating to a non-HDL-C goal of <100 mg/dL (LDL-C of <70 mg/dL) is considered a therapeutic option. Blood 03/04/2024 8:56 AM NIPPLE MACHINE OPERATOR 03/04/2024 8:57 AM NIPPLE MACHINE OPERATOR Narrative [facility] - 03/05/2024 5:37 AM NIPPLE MACHINE OPERATOR FASTING:YES FASTING: YES Jose Guy MD LAB BLOOD ORDERABLES Final Result [facility] [address] [place] [address] * (ABNORMAL) Comprehensive metabolic panel (03/04/2024 8:56 AM NIPPLE MACHINE OPERATOR) Glucose 161(H) 65 - 99 mg/dL [facility] Comment: Fasting reference interval For someone without known diabetes, a glucose value >125 mg/dL indicates that they may have diabetes and this should be confirmed with a follow-up test. BUN 13 7 - 25 mg/dL [facility] Creatinine 0.66 0.50 - 1.05 mg/dL [facility] eGFR 100 > OR = 60 mL/min/1.7 3m2 [facility] BUN/creat ratio SEE NOTE: 6 - 22 (calc) [facility] Comment: Not Reported: BUN and Creatinine are within reference range. Sodium 138 135 - 146 mmol/L [facility] Potassium, pl 4.0 3.5 - 5.3 mmol/L [facility] Chloride 102 98 - 110 mmol/L [facility] CO2 28 20 - 32 mmol/L [facility] Calcium 9.3 8.6 - 10.4 mg/dL [facility] Protein, sr 7.4 6.1 - 8.1 g/dL [facility] Albumin 4.3 3.6 - 5.1 g/dL [facility] GLOBULIN 3.1 1.9 - 3.7 g/dL (calc) [facility] Alb/glob ratio 1.4 1.0 - 2.5 (calc) [facility] Bilirubin, total 0.8 0.2 - 1.2 mg/dL [facility] Alk phos 76 37 - 153 U/L [facility] AST 16 10 - 35 U/L [facility] ALT (SGPT) 11 6 - 29 U/L [facility] Blood 03/04/2024 8:56 AM NIPPLE MACHINE OPERATOR 03/04/2024 8:57 AM NIPPLE MACHINE OPERATOR Narrative [facility] - 03/05/2024 5:37 AM NIPPLE MACHINE OPERATOR FASTING:YES FASTING: YES Jose Guy MD LAB BLOOD ORDERABLES Final Result [facility] [address] [place] [address] * SCAN - LABS (03/04/2024) us Provider Scanning Final Result * Colonoscopy (02/27/2024 9:56 AM NIPPLE MACHINE OPERATOR) Anatomical Region Laterality Modality Other Historical Provider ENDOSCOPY PROCEDURES Ayana l Result * (ABNORMAL) High Risk HPV DNA Detection with Genotyping (Molecular component) (12/13/2023 11:01 AM CDT) HPV HR 16 Not Detected Not Detected [facility] Comment:Testing performed by : [facility], [address] [place]., [address] HPV HR 18 Not Detected Not Detected [facility] Comment:Testing performed by : [facility], [address] [place]., [address] HPV HR Non 16/18 Detected(A) Not Detected [...] this test have been verified by the [facility] Molecular Infectious Disease laboratory. Correlate with separately reported cytology results, as applicable. Interpretive data last revised 22 Testing performed by: [facility], [address] [place]., [address] Endocervical 12/13/2023 11:0 1 AM CDT 12/16/2023 9:08 AM CDT Narrative [facility] - 12/16/2023 9:53 PM CDT Clinical history and diagnosis->screening Testing type->Screening Last menstrual period (date if known)->>5 years Menstrual status->Postmenopausal Previous negative PAP?->Yes Previous atypical cytology->ASCUS Eduarda Pop NP LAB BODY FLUIDS AND STOOLS OR DERABLES Final Result [facility] [address] [place] [address] [facility] * DIABETES EYE EXAM (09/30/2023 10:01 [...] age 40, based on guidelines of the [employer] (ACR Practice Parameter for the Performance of Screening and Diagnostic Mammography) and [employer]. For women [...] Most Recently Relevant to Health Maintenance Insurance [employer] OPEN ACCESS [employer] OPEN ACCESS [employer] OPEN ACCESS Care Teams Train Operator Relationship Specialty Start Date End Date Jose Guy MD [address] [place] [address] PCP - General Internal Medicine 11/21/23
--- OUTSIDE RECORDS SUMMARY | 2024-05-28 00:37 | XMS_ITS | Continuity of Care Document ---
Author Organization [facility] Address [address] [place] [address] [address] [place] [address] Phone Care Team Providers Care Poly Area Supervisor Name Role Phone Brittny, Edward Unavailable Unavailable Advance Directives Directive Yes / No Effective Date File Name No Information Encounters Encounter Description Practice Location Reason(s) For Visit Diagnoses Date Provider Providers Copied on Encounter [facility], [address], [place], [place], [id number], [place] tel:[phone] [facility] No Information Dec-0 7-199 9 Doisy Edward. [address] , [address], [place], [address], [place]. tel:[phone] Family History Family Member Type Diagnosis Age At Onset No Information Payers Payer name Insurance type Covered alliance party ID Authoriza tion(s) No Information Social [...]
--- NOTE | 2024-05-28 11:10 | WPDHPUPDATE1 ---
History and Physical Update Update Date/Time: 05/28/24 11:10 History and Physical has been reviewed, including an updated exam of the patient. There are NO changes in the patient's condition. Risks, benefits, and alternatives have been discussed and questions answered. Patient agrees to proceed with procedure.
[2024-05-28 11:37] LABS: Glucose Point of Care 127 mg/dl (65-105)
[2024-05-28 11:45] VITALS: BP 128/69; PULSE 79; RESP 14; TEMP 36.6; O2SAT 99
[2024-05-28] MEDS: KETOROLAC 15 MG/ML VIAL (*BKC) IV PUSH (11:45)
--- NOTE | 2024-05-28 13:00 | P.PNAN_ITS ---
Anes - Initial Pre Proc Eval Procedure: Operation Date: 05/28/24 13:00 Proposed Procedures p Insertion Mari Cath - Francisco Landry MD Date/Time: 05/28/24 13:00 Surgeon: Francisco Landry MD Pre Op Diagnosis: malignant neoplasm of ascending colon Patient Data Age: 58 Gender: F Height: 1.63 m Weight: 69.5 kg Last Vital Signs Temp 97.8 F 05/28/24 11:45 Pulse 79 05/28/24 11:45 Resp 14 05/28/24 11:45 BP 128/69 05/28/24 11:45 Pulse Ox 99 05/28/24 11:45 O2 Del Method Room Air 05/28/24 11:45 Allergies Allergy/AdvReac Type Severity Reaction Status Date / Time No Known Allergies Allergy Verified 05/28/24 12:38 Home Medications ?Medication ?Instructions ?Recorded ?Confirmed ?Type aspirin 81 mg tablet 81 mg PO DAILY 02/12/24 05/28/24 History metformin 500 mg tablet 1,000 mg PO BID 02/12/24 05/28/24 History rosuvastatin 20 mg tablet 20 mg PO DAILY 02/12/24 05/18/24 History Laboratory Tests 05/28/24 11:34 POC Capillary Glucose 127 H mg/dl (65-105) Patient hx anesthesia problems: none Family hx anesthesia problems: none Results Review: All pre-operative results and documents have been reviewed as part of the pre- operative evaluation. ON LICENSE OF [facility] Past Medical History Medical History Screen for colon cancer Screen for colon cancer Cancer Diabetes type 2, controlled Hyperlipidemia Surgical History Surgical History H/O colectomy 04/15/24 Hand access laparoscopic right colectomy with hand-sewn ileotransverse anastomosis Dr. Landry History of tubal ligation Hx laparoscopic cholecystectomy 2006 Cataract extraction status of right eye (~2019) Family History Family History Mother Thyroid cancer Heart disease Sibling Thyroid cancer Thyroid disorder Grandparent Thyroid cancer Social History Social History Smoking status: Never smoker Alcohol intake: current Drinks per week: 1 Alcohol use details: Social Substance use: never Substance use type: does not use Do You Feel Safe in your Home?: Yes Lack of Transportation: No Lack of Food: Never True Current Housing: I Have Housing Concerned About Future Housing: No Difficulty Paying Gas/Electric Bills: No Difficulty Paying for Meds: No Currently Unemployed: YES Education: High School Diploma/GED Difficulty w/ Childcare or Family Care: No Living arrangements: alone Spiritual care concerns: No Anes - Eval Final PreProcedure Day of Procedure 05/28/24 13:00 Patient weight: overweight Lungs: normal air movement Airway: Mallampati scale class II Neurological: alert and oriented Last oral intake: >/= 8 hours ASA classification: II Emergent: no Anesthetic plan: proceed Anesthesia type and monitoring: general GIVS and standard monitoring Results Review: All pre-operative results and documents have been reviewed as part of the pre- operative evaluation. Hyperlipidemia, DM fsb 127, pt w colon cancer and now w need for chemo. Informed Consent: The patient's anesthetic plan and its attendant risks and benefits were discussed with the patient/family/POA. Questions were solicited and answers provided to the satisfaction of the patient/family/POA.
[2024-05-28] MEDS: BUPIVACAINE/EPINEPHRINE 0.5% 30 ML VIAL INFILTRATE (13:05)
[2024-05-28] MEDS: HEPARIN SODIUM 1,000 UNITS/ML VIAL 1000 UNITS IV PUSH (13:05)
[2024-05-28] MEDS: ceFAZolin 2 GM/D5W 50 ML 2 GM/50 ML BAG IVPB (13:05)
[2024-05-28 14:04] VITALS: BP 116/64; PULSE 88; RESP 16; O2SAT 96
[2024-05-28] MEDS: LACTATED RINGERS 1,000 ML 30 ML IV CONT (14:04)
--- NOTE | 2024-05-28 14:20 | P.OP_ITS ---
Procedure Note - Detailed Date of Procedure 05/28/24 Pre-op Diagnosis malignant neoplasm of ascending colon, inadequate venous access Post-op Diagnosis Same Procedure Performed Attempted placement left internal jugular Port-A-Cath, placement left subclavian Port-A-Cath using ultrasound and under fluoroscopy Surgeon Francisco Landry MD Principal Engineer Suzie Eller [employer] Anesthesia General (G IV S) and Local Indications Patient has been found to have stage III colon cancer and has plans for chemotherapy. She is had request from her oncologist to have a Port-A-Cath placed for chemotherapy administration. Findings Although the left internal jugular vein was cannulated several times, I was never able to pass the guidewire into the superior vena cava. This was abandoned and the left subclavian vein was used without difficulty. Description of Procedure Patient was taken to surgery and placed in the supine position. Anesthesia was introduced and the left neck and left subclavian areas were prepped and draped. The proposed position for the Port-A-Cath incision was marked on the skin under the left clavicle. Local was infiltrated into the skin and the deeper subcutaneous tissues. Incision was made dissection was carried down through the subcutaneous and through the pectoralis major fascia. A subfascial pocket was then created just below the incision. This was made large enough for the Port-A-Cath reservoir. Cautery was used for hemostasis. I then used the ultrasound and was easily able to find the left internal jugular vein. I cannulated the vein several times, patient was placed in steep Trendelenburg for some of the attempts, I could never get the guidewire to pass into the internal jugular vein and on into the superior vena cava. I then anesthetized under the left clavicle. A single puncture was used to cannulate the left subclavian vein. Guidewire passed readily and C-arm fluoroscopy showed that the guidewire was in the superior vena cava. I then mapped out the length Port-A-Cath tubing that would be needed by using C-arm fluoroscopy and placing the tubing over the guidewire. The tubing was then cut to the appropriate length. An introducer and she was then passed over the guidewire and into the superior vena cava using fluoroscopic guidance. The guidewire and the introducer were then removed. The Port-A-Cath tubing was passed into the sleeve and then the sleeve was removed. Port-A-Cath was in the pocket and C-arm fluoroscopy was used. Port-A-Cath appeared to be in good position and the length was fine. I did do some nice action of the pectoralis fat fascia a and some of the muscle to straighten out a slightly abrupt curve in the Port-A-Cath as it entered the pectoralis major muscle. Fluoroscopy checked this again and it looked much better. The Port-A-Cath aspirated blood easily and flushed well with heparin. I sutured the Port-A-Cath to the pectoralis major muscle with 3-0 silk suture. I recheck the Port-A-Cath. It was still working very well. I then closed the wound with 2 layers of running 2-0 Vicryl suture. Skin was closed with subcuticular running 4-0 Monocryl skin suture. The wound was dressed with Exofin surgical adhesive. The patient was then awakened and taken to recovery in good condition. Sponge needle counts were correct x2. Implants Left subclavian vortex Port-A-Cath Estimated Blood Loss -10 Drains No Packing No Pathology None sent Complications None Condition Stable Disposition Same day [facility] Billing Surgery - Charge Forward: Surgery Billing (Attempted left internal jugular placement Port-A-Cath using ultrasound and fluoroscopy, placement left subclavian Port-A-Cath using fluoroscopy)
[2024-05-28 14:35] VITALS: BP 101/68; PULSE 73; RESP 20
[2024-05-28 14:36] LABS: Glucose Point of Care 105 mg/dl (65-105)
[2024-05-28 15:05] VITALS: BP 130/70; PULSE 70; RESP 20
== END 2024-05-28 15:15 | disposition home or self-care (01) ==
PROVIDERS: PCP Internal Medicine; Visit Provider Surgery
PROC: (CPT 36561; principal; 2024-05-28 13:00)
DX: C18.2 Malignant neoplasm of ascending colon (principal); E11.9 Type 2 diabetes mellitus without complications
CPT/HCPCS: 36561; 77001; 82948; C1788; J0690; J1644; J1885; J2250; J2704; J3010; J7030; J7120

== ENCOUNTER 2025-02-04 09:27 | Outpatient (CLI) | payer OTHER, SELFPAY ==
--- NOTE | ~2025-02-04 | CT_ITS ---
EXAM/PROCEDURE: CT abdomen pelvis w con HISTORY: malignant kim of asc colon COMPARISON: April 07, 2024 TECHNIQUE: IV Contrast-enhanced CT of the abdomen and pelvis performed FINDINGS: The bowel gas pattern is nonobstructive with no free air free fluid or pneumatosis seen. Moderate to large amount of stool extends of the cecum. No contrast is present within the small or large bowel limiting evaluation of the intestines. No obvious mass seen. Probable 4 x 3 cm duodenal diverticulum axial image 69 series 3. No hydroureteronephrosis, AAA, or gross CT evidence of pancreatitis. Gallbladder removed. Liver spleen adrenal glands and pancreas appear normal. Retroverted uterus with hypoattenuating endometrial changes of uncertain significance. Bones appear intact. Lung bases clear. In the visualized portions of the breasts, nodular changes and punctate calcifications noted. Retroperitoneal soft tissues are unremarkable. IMPRESSION: 1. No gross evidence of recurrent or metastatic disease identified. Evaluation of the small and large bowel somewhat limited as above. 2. Several incidental findings as noted above. Query if patient has undergone recent screening mammogram. Reviewed, dictated and finalized at location A. LE HOME LABORER IMPRESSION: 1. No gross evidence of recurrent or metastatic disease identified. Evaluation of the small and large bowel somewhat limited as above. 2. Several incidental findings as noted above. Query if patient has undergone r ecent screening mammogram.
[2025-02-04 10:01] LABS: Estimated Glomerular Filt Rate > 60
--- OUTSIDE RECORDS SUMMARY | 2025-02-04 10:04 | XMS_ITS | Clinical Summary ---
Author Organization [facility] [facility] [address] Address [address] [place] [address] Care Team Providers Care Rehabilitation Therapist Name Role Phone Jose Guy MD Primary Care Provider [phone] Allergies No known active allergies Medications lancets (freestyle) 28 gauge misc Test three times daily 300 each 1 05/22/2023 Active Freestyle [employer] Test Strips strip TEST 3 TIMES A DAY 300 strip 1 2023 Active rosuvastatin (CRESTOR) 20 mg tablet TAKE 1 TABLET BY MOUTH EVERY DAY 90 tablet 1 06/08/2024 Active metFORMIN (GLUCOPHAGE) 1,000 mg tablet TAKE 1 TABLET BY MOUTH TWICE A DAY 180 tablet 1 06/08/2024 Active aspirin 81 mg enteric coated tablet TAKE 1 TABLET BY MOUTH EVERY DAY 30 tablet 5 10/13/2024 Active Active Problems Problem Noted Date Diagnosed Date Malignant neoplasm of ascending colon 04/13/2024 Assessment & Plan (04/13/2024 2:56 PM BRIM POUNCER): Patient had colonoscopy in February 2023 that showed malignant tumor in the ascending colon. She is scheduled for resection in couple of days. Advised to hold aspirin. Abnormal Papanicolaou smear of cervix with positive human papilloma virus (HPV) test 01/27/2024 Overview (04/13/2024): Managed by the cognos consultant Assessment & Plan (04/13/2024 2:58 PM BRIM POUNCER): Managed by the cognos consultant Encounter for well woman exa m with routine gynecological exam 12/12/2023 Assessment & Plan (12/12/2023 10:40 AM CDT): Pap smear with HPV cotesting completed. Order for mammogram. We will notify the patient of all results. Follow up in one year or sooner if needed. Patient verbalizes understanding regarding plan of care and all questions answered. Dyslipidemia 11/21/2023 Assessment & Plan (04/13/2024 7:56 AM BRIM POUNCER): LDL is 37. Continue Crestor and low-fat diet Assessment & Plan (11/21/2023 2:43 PM CDT): Patient with history of hyperlipidemia. She is not on medications. Discussed low-fat diet. Discussed exercise on regular basis. Pamphlets were given. Uncontrolled diabetes mellitus with hyperglycemi a 05/31/2023 Assessment & Plan (04/13/2024 2:57 PM BRIM POUNCER): Hemoglobin A1c 7.6. Metformin was increased to [...] History Medical History Date Comments Diabetes mellitus GERD (gastroesophageal reflux disease) Family History Medical [...] Comments Blood Pressure 112/64 04/13/2024 2:36 PM BRIM POUNCER Pulse 100 04/13/2024 2:36 PM BRIM POUNCER Temperature 36.2 C (97.2 F) 04/13/2024 2:36 PM BRIM POUNCER Respiratory Rate 16 04/13/2024 2:36 PM BRIM POUNCER Oxygen Saturation 98% 04/13/2024 2:36 PM BRIM POUNCER Inhaled Oxygen Concentration - - Weight 71.7 kg (158 lb) 04/13/2024 2:36 PM BRIM POUNCER Height 162.6 cm (5' 4) 04/13/2024 2:36 PM BRIM POUNCER Body Mass Index 27.12 04/13/2024 2:36 PM BRIM POUNCER Plan of Treatment Health Maintenance Due Date Last Done Comments Hepatitis B Screening 11/27/1981 Pneumococcal vaccine <65 (1 of 2 - PCV) 11/27/1982 Zoster Vaccine (1 of 2) 11/27/2013 Foot Exam 05/22/2024 05/22/2023 Breast Cancer Screening-Mammogram 08/06/2024 024 Hemoglobin A1C 09/02/2024 03/04/2024, 06/1 , 05/14/2023, Additional history exists Dilated Eye Exam 09/29/2024 09/30/2023, 08/02/2022 Covid-19 Vaccine (3 - 2024-2 6 season) 2024 08/16/2020, 07/26/2020 Influenza Vaccine (#1) 2024 , 01/07/2019, 03/13/2018, Additional history exists Regular Well Visit/Exam 18-64 12/11/2024 12/12/2023 Cervical Cancer Screening 12/12/2024 12/13/2023, Colon Cancer Screening-Colonoscopy 02/26/20252023 Albumin Creatinine Ratio, Urine 03/04/2025 Lipid Panel 03/04/2025 03/04/2024, 03/27/2023 eGFR 03/04/2025 03/04/2024, 04/26, 03/27/2023 Depression Screening 04/13/2025 04/13/2024, 12/12/2023, 11/21/2023, Additional history exists DTaP/Tdap/Td Vaccine (2 - Td or Tdap) 01/07/2029 01/07/2019 Hepatitis C Screening Completed 03/04/2024 Procedures Procedure Name Priority Date/Time Associated Diagnosis Comments HEPATITIS C ANTIBODY Routine 03/04/2024 8:56 AM BRIM POUNCER COMPREHENSIVE METABOLIC PANEL Routine 03/04/2024 8:56 AM BRIM POUNCER Uncontrolled diabetes mellitus with hyperglycemia (HCC) HEMOGLOBIN A1C Routine 03/04/2024 8:56 AM BRIM POUNCER Uncontrolled diabetes mellitus with hyperglycemia (HCC) LIPID PANEL Routine 03/04/2024 8:56 AM BRIM POUNCER Uncontrolled diabetes mellitus with hyperglycemia (HCC) Dyslipidemia ALBUMIN CREATININE RATIO, URINE Routine 03/04/2024 8:56 AM BRIM POUNCER Uncontrolled diabetes mellitus with hyperglycemia (HCC) COLONOSCOPY Routine 02/27/2024 9:56 AM BRIM POUNCER HIGH RISK HPV DNA DETECTION WITH GENOTYPING Routine 12/13/2023 11:01 AM CDT Cervical cancer screening HM DIABETES EYE EXAM Routine 09/30/2023 10:01 AM CDT SCREENING MAMMOGRAM BILATERAL W RIVER Schedule Routine, Read Routine (OP Routine) 08/07/2023 1:17 PM CDT Screening mammogram for breast cancer from Last 3 Months or Most Recently Relevant to Health Maintenance Results * Hepatitis C antibody (03/04/2024 8:56 AM BRIM POUNCER) Hep C Ab NON-REACTI VE NON-REACT PANKAJ [facility] Comment: HCV antibody was non-reactive. There is no laboratory evidence of HCV infection. In most cases, no further action is required. However, if recent HCV exposure is suspected, a test for HCV RNA (test code 70525) is suggested. For additional information please refer to http://education.[employer]/faq/PTV37w2 (This link is being provided for informational/ educational purposes only.) 03/04/2024 8:56 AM BRIM POUNCER 03/04/2024 8:57 AM BRIM POUNCER Narrative [facility] - 03/05/2024 5:37 AM BRIM POUNCER FASTING:YES FASTING: YES us Jose Guy MD LAB MICROBIOLOGY - GENERAL ORDERABLES Final Result [facility] [address] [place] [address] * Albumin Creatinine Ratio, Urine (03/04/2024 8:56 AM BRIM POUNCER) Creatinine, ur 110 20 - 275 mg/dL [...] a diagnostic category. Urine 03/04/2024 8:56 AM BRIM POUNCER 03/04/2024 8:57 AM BRIM POUNCER Narrative [facility] - 03/05/2024 5:37 AM BRIM POUNCER FASTING:YES FASTING: YES Jose Guy MD LAB URINE ORDERABLES Final Result Performing Organization Address City/[facility]/ZIP Co de Phone Number [facility] [address] [place] [address] * (ABNORMAL) Hemoglobin A1c (03/04/2024 8:56 AM BRIM POUNCER) Hgb A1C 7.6(H) <5.7 % of total Hgb [facility] Comment: For someone without known diabetes, [...] diabetes for children. Blood 03/04/2024 8:56 AM BRIM POUNCER 03/04/2024 8:57 AM BRIM POUNCER Narrative [facility] - 03/05/2024 5:37 AM BRIM POUNCER FASTING:YES FASTING: YES Jose Guy MD LAB BLOOD ORDERABLES Final Result [facility] [address] [place] [address] * (ABNORMAL) Lipid panel (03/04/2024 8:56 AM BRIM POUNCER) Cholesterol 95 <200 mg/dL [facility] HDL 44(L) > OR = 50 mg/dL [facility] Triglycerides 65 <150 mg/dL [facility] LDL 37 mg/dL (calc) [facility] Comment: Reference range: <100 Desirable range <100 mg/dL for primary prevention; <70 mg/dL for patients with CHD or diabetic patients with > or = 2 CHD risk factors. LDL-C is now calculated using the Franco calculation, which is a validated novel method providing better accuracy than the Friedewald equation in the estimation of LDL-C. Raymond SS et al. SIMA. 2013;310(19): 6244-8892 (http://education.[employer]/faq/IGQ916) Chol/HDL ratio 2.2 <5.0 (calc) [facility] Non-HDL, (LDL+VLDL) 51 <130 mg/dL (calc) [facility] Comment: For patients with diabetes plus 1 major ASCVD risk factor, treating to a non-HDL-C goal of <100 mg/dL (LDL-C of <70 mg/dL) is considered a therapeutic option. Blood 03/04/2024 8:56 AM BRIM POUNCER 03/04/2024 8:57 AM BRIM POUNCER [facility] - 03/05/2024 5:37 AM BRIM POUNCER FASTING:YES FASTING: YES Jose Guy MD LAB BLOOD ORDERABLES Final Result [facility] [address] [place] [address] * (ABNORMAL) Comprehensive metabolic panel (03/04/2024 8:56 AM BRIM POUNCER) Glucose 161(H) 65 - 99 mg/dL [facility] Comment: Fasting reference interval For someone [...] Chloride 102 98 - 110 mmol/L [facility] CO2 28 20 - 32 mmol/L [facility] Calcium 9.3 8.6 - 10.4 mg/dL [facility] Protein, sr 7.4 6.1 - 8.1 g/dL [facility] Albumin 4.3 3.6 - 5.1 g/dL [facility] GLOBULIN 3.1 1.9 - 3.7 g/dL (calc) [facility] Alb/glob ratio 1.4 1.0 - 2.5 (calc) [facility] Bilirubin, total 0.8 0.2 - 1.2 mg/dL [facility] Alk phos 76 37 - 153 U/L [facility] AST 16 10 - 35 U/L [facility] ALT (SGPT) 11 6 - 29 U/L [facility] Blood 03/04/2024 8:56 AM BRIM POUNCER 03/04/2024 8:57 AM BRIM POUNCER Narrative [facility] - 03/05/2024 5:37 AM BRIM POUNCER FASTING:YES FASTING: YES Jose Guy MD LAB BLOOD ORDERABLES Final Result [facility] [address] [place] [address] * Colonoscopy (02/27/2024 9:56 AM BRIM POUNCER) Anatomical Region Laterality Modality Other Historical Provider ENDOSCOPY PROCEDURES Ayana l Result * (ABNORMAL) High Risk HPV DNA Detection with Genotyping (Molecular component) (12/13/2023 11:01 AM CDT) HPV HR 16 Not Detected Not Detected [facility] Comment:Testing performed by : [facility], [address] [place]., [address] HPV HR 18 Not Detected Not Detected KEENA CEVALLOS Comment:Testing performed by : [facility], [address] [place]., [address] HPV HR Non 16/18 Detected(A) Not Detected [...] test have been verified by the [facility] Molecular Infectious Disease laboratory. Correlate with separately reported cytology results, as applicable. Interpretive data last revised 22 Testing performed by: [facility], [address] [facility], [address] Endocervical 12/13/2023 11:0 1 AM CDT 12/16/2023 9:08 AM CDT Narrative KEENA - 12/16/2023 9:53 PM CDT Clinical history and diagnosis->screening Testing type->Screening Last menstrual period (date if known)->>5 years Menstrual status->Postmenopausal Previous negative PAP?->Yes Previous atypical cytology->ASCUS us Eduarda Pop NP LAB BODY FLUIDS AND STOOLS ORDERABLES Final Result KEENA CEVALLOS [address] [facility] Department [place] [address] [facility] * DIABETES EYE EXAM (09/30/2023 10:01 [...] age 40, based on guidelines of the [employer] (ACR Practice Parameter for the Performance of Screening and Diagnostic Mammography) and [employer]. For women [...] Most Recently Relevant to Health Maintenance Insurance CIGNA OPEN ACCESS CIGNA OPEN ACCESS CIGNA OPEN ACCESS Care Teams Rehabilitation Therapist Relationship Specialty Start Date End Date Jose Guy MD [address] [facility] [address] [place] [address] [place] [id number] PCP - General Internal Medicine 11/21/23
--- OUTSIDE RECORDS SUMMARY | 2025-02-04 10:04 | XMS_ITS | Clinical Summary ---
Author Organization [facility] George [address] Address [address] [place] [address] Care Team Providers Care Wafer Fabrication Operator Name Role Phone Unavailable Primary Care Provider Unavailabl e Allergies No known active allergies Medications metFORMIN (GLUCOPHAGE) 1,000 mg tablet Take 1,000 mg by mouth. 04/13/2024 Active rosuvastatin (CRESTOR) 20 mg tablet Take 20 mg by mouth daily. 04/13/2024 04/13/19 26 Active aspirin (ECOTRIN EC) 81 mg Tablet, Delayed Release (E.C.) Take 81 mg by mouth daily. 04/13/2024 04/13/19 26 Active lidocaine-prilo maryam (EMLA) 2.5-2.5 % CreamIndication s:Malignant neoplasm of ascending colon (CMS/HCC) Apply a quarter size amount to port site 30 minutes before access. May use up to 2 times daily. 30 Gram 1 05/26/2024 Active prochlorperazin e maleate (COMPAZINE) 10 mg tablet Take 1 Tablet (10 mg) by mouth every 6 hours as needed for Nausea/Emesis . 30 Tablet 1 07/07/2024 Active potassium CHLORIDE (K-DUR,KLOR-CON M20) 20 mEq Extended Release tablet Take 1 Tablet (20 mEq) by mouth daily. 30 Tablet 2 07/07/2024 Active ondansetron (ZOFRAN ODT) 8 mg Tablet, Rapid Dissolve Dissolve 1 tablet on top of tongue then swallow with saliva every 8 hours as needed for nausea or vomiting 30 Tablet 1 09/01/2024 Active diphenoxylate-a tropine 2.5 mg-0.025 mg tablet Take 1 Tablet by mouth 4 times daily as needed for Diarrhea/Loos e Stools. 60 Tablet 10/14/2024 Active gabapentin (NEURONTIN) 300 mg capsule Take 1 Capsule (300 mg) by mouth 2 times daily. 60 Capsule 01/13/2025 Active Active Problems No known active problems Encounters Date Type Department Care Team Description 02/01/2025 Orders Only [facility] Oncology and Hematology - [place] [address] [place] [address] Emmett Earl MD Malignant neoplasm of ascending colon (CMS/HCC); Chronic anemia 01/20/2025 External Device Data STL ABSTRACTION Provider, Abstract 01/19/2025 External Device Data STL ABSTRACTION Provider, Abstract 01/18/2025 Orders Only [facility]ology - [place] [address] [place] [address] Emmett Earl MD Malignant neoplasm of ascending colon ([facility]/HCC); Chronic anemia 01/13/2025 Refill [facility] Oncology and Hematology - [place] [address] [place] [id number] Emmett Earl MD 01/06/2025 Telephone [facility] - [place] [address] [place] [address] Emmett Earl MD Numbness 01/04/2025 Orders Only [facility]cology and Hematology - [place] [address] [place] [address] Emmett Earl MD Malignant neoplasm of ascending colon ([facility]/HCC); Chronic anemia 12/21/2024 Orders Only [facility] Oncology and Hematology - [place] [address] [place] [address] Emmett Earl MD Malignant neoplasm of ascending colon (CMS/HCC); Chronic anemia 12/07/2024 Orders Only [facility] - [place] [address] [place] [address] Emmett Earl MD Malignant neoplasm of ascending colon (CMS/HCC); Chronic anemia 11/23/2024 Orders Only [facility] - [place] [address] [place] [address] Emmett Earl MD Malignant neoplasm of ascending colon (CMS/HCC); Chronic anemia 11/12/2024 Orders Only [facility]ology - [place] [address] [place] [address] Emmett Earl MD 11/11/2024 9:15 AM CDT Office Visit [facility] - [place] [address] [place] [address] Emmett Earl MD Malignant neoplasm of ascending colon (CMS/HCC) (Primary Dx) 11/09/2024 Orders Only [facility] Oncology and Hematology - [place] [address] [place] [address] Emmett Earl MD Malignant neoplasm of ascending colon (CMS/HCC); Chronic anemia from Last 3 Months Family [...] Date Smoking Tobacco: Never Smokeless Tobacco: Never Tobacco Cessation:Counseling Given: Not Answered Alcohol Use Standard Drinks/Week Comments Yes 0 (1 standard drink = 0.6 oz pur e alcohol) Occasionally Comments Unknown Sex and Gender Information Value Date Recorded Sex Assigned at Not on file Legal Sex Female 2:49 PM ENROBER TENDER Gender Identity Not on file Sexual Orientation Not on file Last Filed Vital Signs Vital Sign Reading Time Taken Comments Blood Pressure 107/57 11/11/2024 9:06 AM CDT Pulse 80 11/11/2024 9:06 AM CDT Temperature 36.4 C (97.6 F) 11/11/2024 9:06 AM CDT Respiratory Rate 15 10/28/2024 9:14 AM CDT Oxygen Saturation 97% 11/11/2024 9:06 AM CDT Inhaled Oxygen Concentration - - Weight 68.9 kg (152 lb) 11/11/2024 9:06 AM CDT Height 162.6 cm (5' 4) 05/11/2024 3:36 PM ENROBER TENDER Body Mass Index 26.09 05/11/2024 3:36 PM ENROBER TENDER Plan of Treatment Upcoming Encounters Date Type Department Care Team (Late st Contact Info) Description 02/11/2025 8:30 AM ENROBER TENDER Office Visit [facility] Oncology and Hematology [facility] [address] [place] [address] Shital Yeager MD [address] [place] [address] Health Maintenance Due Date Last Done Comments DIABETES ANNUAL RETINAL EXAM 11/27/1981 DIABETES MICROALBUMIN ANNUAL SCREEN 11/27/1981 LDL CHOLESTEROL ANNUAL 11/27/1981 ZOSTER VACCINE (1 of 2) 11/27/1982 HPV/Cotest (21-29) 11/27/1984 CERVICAL CANCER SCREENING 11/27/1993 HPV/Cotest (30-65) 11/27/1993 PAP SMEAR 11/27/1993 DIABETES ANNUAL FOOT EXAM 05/22/2024 05/22/2023 BREAST CANCER SCREENING 08/06/2024 08/07/2023, 08/06 DIABETES HBA1C Q 6 MONTHS 09/02/2024 03/04/2024 INFLUENZA VACCINE (#1) 2024 3, 01/07/2019, 01/07/2019, Additional history exists DTAP/TDAP/TD VACCINES (3 - T d or Tdap) 01/07/2029 01/07/2019, 06/30/2008 RSV VACCINE (60+ or ) (1 - 1-dose 75+ series) 11/27/2038 COLORECTAL SCREENING Discontinued 02/27/2024, 02/27/20 24 Colorectal Cancer Screening Discontinued FIT-DNA Q 3 years Discontinued FIT/FOBT Q 1 year Discontinued Flex Sig/CT Colonography Q 5 years Discontinued Procedures Procedure Name Priority Date/Time Associated Diagnosis Comments BASIC METABOLIC PANEL Routine 11/11/2024 10:16 AM CDT COMPREHENSIVE METABOLIC PANEL Routine 11/11/2024 10:13 AM CDT from Last 3 Months Results * BASIC METABOLIC PANEL (11/11/2024 10:16 AM CDT) Blood Emmett Earl MD CHEMISTRY ORDERABLES Final Resu lt * COMPREHENSIVE METABOLIC PANEL (11/11/2024 10:13 AM CDT) Blood Emmett Earl MD CHEMISTRY ORDERABLES Final Resu lt from Last 3 Months Insurance [facility] OPEN ACCESS O
--- OUTSIDE RECORDS SUMMARY | 2025-02-04 10:05 | XMS_ITS | Encounter Summary ---
Author Organization [facility] Address [address] [place] [address] Care Team Providers Care Accounting Systems Analyst Name Role Phone Jose Guy MD Primary Care Provider [phone] Encounter Details Date Type Department Care Team ([facility] Contact Info) Description 03/04/2024 Orders Only [facility] Health Information Management [address] [place] [id number] Scanning, Provider Social History Tobacco Use Types [...] on filedocumented in this encounter Care Teams Accounting Systems Analyst Relationship Specialty Start Date End Date Jose Guy MD [address] [place] [address] [place] [id number] PCP - General Internal Medicine 11/21/23 documented as of this encounter
--- OUTSIDE RECORDS SUMMARY | 2025-02-04 10:05 | XMS_ITS | Encounter Summary ---
Author Organization [facility] [employer] [facility] Address [address] [place] [address] Care Team Providers Care Extension Division Director Name Role Phone Unavailable Primary Care Provider Unavailabl e Encounter Details Date Type Department Care Team (Late Contact Info) Description 02/01/2025 Orders Only [facility] Oncology and Hematology [facility] [address] [place] [address] Emmett Earl MD [address] [facility] [address] [place] [address] Malignant neoplasm of ascending colon (CMS/HCC); Chronic anemia Social History Tobacco Use Types Packs/Day Years Used Date Smoking Tobacco: Never Smokeless Tobacco: Never Alcohol Use Standard Drinks/Week Comments Yes 0 (1 standard drink = 0.6 oz pur e alcohol) Occasionally Comments Unknown Sex and Gender Information Value Date Recorded Sex Assigned at Not on file Legal Sex Female 2:[address] BAILIFF Gender Identity Not on file Sexual Orientation Not on file documented as of this encounter Plan of Treatment Upcoming Encounters Date Type Department Care Team (Late Contact Info) Description 02/11/2025 8:[address] BAILIFF Office Visit [facility] Oncology and Hematology [place] [address] [place] [address] Shital Yeager MD [address] [place] [address] documented as of this encounter Visit Diagnoses Diagnosis Malignant neoplasm of ascending colon (CMS/HCC) Malignant neoplasm of ascending colon Chronic anemia Anemia, unspecified documented in this encounter
== END 2025-02-04 09:28 | disposition home or self-care (01) ==
PROVIDERS: PCP Family Medicine; Visit Provider Internal Medicine Hematology & Oncology
DX: C18.2 Malignant neoplasm of ascending colon (principal)
CPT/HCPCS: 74177; Q9967